=== PATIENT | male | born 1960 | race Caucasian/White ===

== ENCOUNTER 2023-05-13 12:15 | Outpatient (OUT) | payer MEDICARE, SELFPAY ==
[2023-05-13 12:48] LABS: Basophils Absolute Auto 0.1 10^3/uL (0.0-0.1); Basophils Percent Auto 0.7 % (0.2-2.0); Eosinophils Absolute Auto 0.4 10^3/uL (0.0-0.7); Eosinophils Percent Auto 6.1 % (0.9-7.0); Hematocrit 42.4 % (42.0-54.0); Hemoglobin 13.9 g/dL (14.0-18.0); Immature Granulocytes Abs Auto 0.02 10^3/uL (0.00-0.03); Immature Granulocytes Pct Auto 0.3 % (0.0-0.5); Lymphocytes Absolute Auto 2.1 10^3/uL (1.2-3.8); Lymphocytes Percent Auto 30.5 % (20.5-60.0); Mean Corpuscular HGB Conc 32.8 g/dL (29.9-35.2); Mean Corpuscular Hemoglobin 30.3 pg (25.9-34.0); Mean Corpuscular Volume 92.4 fL (80.0-94.0); Mean Platelet Volume 9.9 fL (9.5-13.5); Monocytes Absolute Auto 0.5 10^3/uL (0.3-0.8); Monocytes Percent Auto 6.9 % (1.7-12.0); Neutrophils Absolute Auto 3.8 10^3/uL (1.4-6.5); Neutrophils Percent Auto 55.5 % (43.0-75.0); Platelet Count 312 10^3/uL (150-450); Red Blood Count 4.59 10^6/uL (4.70-6.10); Red Cell Distribution Width 13.3 % (11.0-15.0); White Blood Count 6.8 10^3/uL (4.0-11.0)
[2023-05-13 12:51] LABS: Estimated Average Glucose 174 mg/dL; Glycohemoglobin A1C 7.7 % (4.5-6.2)
[2023-05-13 14:00] LABS: Alanine Aminotransferase 29 U/L (16-63); Albumin Globulin Ratio 0.9; Albumin Level 3.6 g/dL (3.4-5.0); Alkaline Phosphatase 71 U/L (46-116); Anion Gap 10.3; Aspartate Amino Transferase 21 U/L (15-37); BUN Creatinine Ratio 14.4; Bilirubin Total 0.7 mg/dL (0.2-1.0); Carbon Dioxide 29.3 mmol/L (21.0-32.0); Chloride 102 mmol/L (98-107); Estimated GFR (African America >60 (>=60); Estimated GFR (Non-African Ame >60 (>=60); Glucose 152 mg/dL (74-106); Potassium 4.6 mmol/L (3.5-5.1); Sodium 137 mmol/L (136-145); Total Protein 7.6 g/dL (6.4-8.2)
[2023-05-13 14:01] LABS: Free T4 1.08 ng/dL (0.76-1.46)
[2023-05-13 14:09] LABS: Chol HDL Ratio 2.5; Cholesterol 188 mg/dL (<=200); HDL Cholesterol 76 mg/dL (40-60); Prostate Specific Antigen Scrn 1.93 ng/mL (<=4.00); Thyroid Stimulating Hormone 5.618 uIU/mL (0.358-3.740); Triglycerides 83 mg/dL (<=150); VLDL CHOLESTEROL 16.6 mg/dL
== END 2023-05-13 12:16 ==
LOC: LAB 12:21
PROVIDERS: PCP Nurse Practitioner; Visit Provider Nurse Practitioner
DX: Z00.00 Encounter for general adult medical examination without abnormal findings (principal); E11.9 Type 2 diabetes mellitus without complications; E78.5 Hyperlipidemia, unspecified; E03.9 Hypothyroidism, unspecified; Z12.5 Encounter for screening for malignant neoplasm of prostate
CPT/HCPCS: 36415; 80053; 80061; 83036; 84439; 84443; 85025; G0103

== ENCOUNTER 2024-10-29 19:59 | Emergency (ER) | payer MEDICARE, SELFPAY ==
[2024-10-29 20:03] VITALS: BP 185/80; PULSE 122; TEMP 36.6; O2SAT 100; BMI 34.7
[2024-10-29 20:13] LABS: Glucometer 229 mg/dL (74-106)
[2024-10-29 20:16] VITALS: PULSE 119
--- NOTE | 2024-10-29 20:18 | XR_ITS ---
The [address] [address] Patient Name: ARNOLDO ARIAS MRN: [id number] date: 1960 Sex: M Assigned Patient Location: ER Current Patient Location: ER Accession/Order Number: [id number] Exam Date: 10/29/2024 20:24 Report Date: 10/29/2024 21:43 At the request of: DAIANA MARKER Procedure: XR chest 1V EXAM: XR chest 1V HISTORY: CP COMPARISON: Chest x-ray 04/04/2020. TECHNIQUE: AP upright chest x-ray. FINDINGS: Lung markings prominent, accentuated by poor inspiration but no infiltrate or edema seen. Heart size and mediastinal contour normal for technique. No pleural effusion or pneumothorax. XR/XR chest 1V IMPRESSION: Stable chest x-ray, no acute finding. Electronically authenticated by: GILES PASCAL Date: 10/29/2024 21:43
--- NOTE | 2024-10-29 20:20 | ED_ITS ---
HPI - Nausea/Vomiting/Diarrhea General Chief complaint: Nausea/Vomiting/Diarrhea Stated complaint: VOMITTING, DIARRHEA Time Seen by Provider: 10/29/24 20:04 Source: patient Mode of arrival: Wheelchair Limitations: no limitations History of Present Illness HPI Narrative: This 63-year-old male with a history of diabetes presents for evaluation of midsternal chest pain and pain behind his right shoulder blade associated with nausea, vomiting, dry heaves and diarrhea. The patient admits to drinking excessively last night-his explains that he went and had his blood work done and was told that his iron was low so he became upset and went to the [facility]. He had 2 buckets of beer; the first bucket was 6, 22 ounce beers. He went home and was intoxicated and his tried to get him to eat something but he ref used at that time but had a piece of pecan pie. Today he became ill and he was unable to eat throughout the day today and has had 2 episodes of vomiting, ongoing nausea and dry heaves. He has also had 2 episodes of diarrhea. He has some left lower quadrant abdominal pain. He has had DKA in the past after episodes of drinking such as this. He took his sugar at home and it was in the 240s. He is not a smoker denies a history of heart disease. His states that he has been sweating profusely all day which is why she brought him to the emergency department. He had taken an oral Zofran prior to arrival without clinical improvement. Since he was unable to eat he did not take his diabetic medications today. Related Data Home Medications ?Medication ?Instructions ?Recorded ?Confirmed atorvastatin 20 mg tablet mg 10/29/24 cyclobenzaprine 10 mg tablet mg 10/29/24 dulaglutide 1.5 mg/0.5 mL mg subcut 10/29/24 subcutaneous pen injector (Trulicity) glyburide 5 mg tablet mg 10/29/24 insulin NPH isoph U-100 human 100 unit subcut 10/29/24 unit/mL subcutaneous suspension (Humulin N NPH U-100 Insulin (isophane susp)) levothyroxine 175 mcg tablet mcg 10/29/24 methocarbamol 750 mg tablet mg 10/29/24 metoprolol tartrate 50 mg tablet mg 10/29/24 omeprazole 40 mg capsule,delayed mg 10/29/24 release Allergies Allergy/AdvReac Type Severity Reaction Status Date / Time Penicillins Allergy Unknown Verified 10/29/24 20:07 Review of Systems ROS Status of ROS 10 or more systems reviewed and unremark able except as noted in history and below PFSH PFSH Social History Little interest or pleasure in doing things: not at all Feeling down, depressed, or hopeless: not at all Exam Narrative Exam Narrative: Vital signs and Nursing Notes reviewed: Patient is afebrile, he is tachycardic with a pulse of 122 and blood pressure is elevated 185/80, he is not hypoxic with pulse ox of 100% on room air General: Awake, alert, oriented, nontoxic, ill-appearing pale adult male, no respiratory distress HEENT: Normocephalic atraumatic, mucous membranes are dry, no scleral icterus Chest: Lungs are clear to auscultation with good air entry, there is no wheezing rhonchi or rales appreciated no accessory muscle use, patient is speaking in complete sentences-no chest wall tenderness to palpation CVS: Regular rate and rhythm S1-S2, tachycardic with pulse in the 120s no murmurs rubs or gallops, pulses are brisk and equal bilaterally ABD: Soft, epigastric and left lower quadrant abdominal tenderness to deep pa lpation bowel sounds are normal Extremities: Moving all extremities, no lower extremity tenderness or swelling noted, negative Homans' sign, pulses are brisk and equal bilaterally Skin: Pale, diaphoretic Neuro: No focal deficits Constitutional Vital Signs, click to edit/add: Last Vital Signs Temp 97.9 F 10/29/24 20:03 Pulse 101 H 10/29/24 23:16 Resp 20 10/29/24 23:16 BP 141/84 10/29/24 23:16 Pulse Ox 99 10/29/24 23:16 O2 Del Method Room Air 10/29/24 23:16 Course Vital Signs Vital signs: Vital Signs Temperature 97.9 F 10/29/24 20:03 Pulse Rate 122 H 10/29/24 20:03 Respiratory Rate 20 10/29/24 20:03 Blood Pressure 185/80 H 10/29/24 20:03 Pulse Oximetry 100 10/29/24 20:03 Oxygen Delivery Method Room Air 10/29/24 20:03 Temperature 97.9 F 10/29/24 20:03 Pulse Rate 101 H 10/29/24 23:16 Respiratory Rate 20 10/29/24 23:16 Blood Pressure 141/84 10/29/24 23:16 Pulse Oximetry 99 10/29/24 23:16 Oxygen Delivery Method Room Air 10/29/24 23:16 MDM - Nausea/Vomiting/Diarrhea MDM Narrative Medical decision making narrative: This 63-year-old male with a history of diabetes is brought to the emergency department by his for evaluation of nausea, vomiting, dry heaves and some diarrhea after drinking heavily yesterday. The patient has been sweating profusely all day. His sugar was checked at home and it was in the 240s. He has had DKA in the past after similar episodes of heavy drinking. He complains of midsternal chest pain and pain in his right shoulder blade area as well as left lower quadrant abdominal pain. Upon arrival he is tachycardic, he is tremulous. He does not have a history of heavy drinking on a routine basis but does drink fairly regularly and occasionally drinks excessively. His EKG upon arrival was a sinus tachycardia at 111 bpm. An IV was placed and he was medicated with IV fluids, Pepcid, 324 mg baby aspirin and Zofran. His nausea and proved somewhat but he was still having left lower quadrant abdominal pain and appeared very anxious and was given 4 mg of IV morphine and 1 mg of IV Ativan. Routine labs are reviewed. He has a normal white count and hemoglobin. Troponin is normal. His glucose is elevated at 255. He was given 6 units of IV insulin. He has mildly elevated pH at 7.47 and pCO2 is mildly low at 29. On his comprehensive metabolic profile his bicarb was also mildly low at 19.7. Lactic acid is elevated at 4 likely related to alcoholic ketoacidosis. 1 view chest x-ray is negative for acute findings. He was given an additional liter of IV lactated Ringer's and monitored in the emergency department. On reevaluation he appears much more comfortable. He is tolerating ice chips. I suspect that he has some degree of alcoholic ketoacidosis as well as some mild alcohol withdrawal. The Ativan seem to help him as much as anything else did. Repeat lactic acid was ordered and is much improved at 2.5. The patient feels comfortable being discharged home at this time. He feels much better and feels comfortable being released. He was encouraged to avoid alcohol in the future especially in large quantities such as he did 2 days ago. He was encouraged to have a bland diet and slowly advance as via as tolerated. Medical Records Medical records narrative: The [address] [address] XRay Report Signed Patient: ARNOLDO ARIAS MR#: [id number] : 1960 Acct:[id number] Age/Sex: 63 / M ADM Date: 10/29/24 Loc: ER Attending Dr: Ordering Physician: Thi Freeman Date of Service: 10/29/24 Procedure(s): XR chest 1V Accession Number(s): [id number] cc: Thi Freeman; GISSEL OLIVIER~ The [address] [address] Patient Name: ARNOLDO ARIAS MRN: [id number] date: 1960 Sex: M Assigned Patient Location: ER Current Patient Location: ER Accession/Order Number: [id number] Exam Date: 10/29/2024 20:24 Report Date: 10/29/2024 21:43 At the request of: THI FREEMAN Procedure: XR chest 1V EXAM: XR chest 1V HISTORY: CP COMPARISON: Chest x-ray 04/04/2020. TECHNIQUE: AP upright chest x-ray. FINDINGS: Lung markings prominent, accentuated by poor inspiration but no infiltrate or edema seen. Heart size and mediastinal contour normal for technique. No pleural effusion or pneumothorax. XR/XR chest 1V IMPRESSION: Stable chest x-ray, no acute finding. Electronically authenticated by: GILES PASCAL Date: 10/29/2024 21:43 Lab Data Labs: Lab Results 10/29/24 10/29/24 10/29/24 Range/Units 20:11 20:16 21:34 WBC 10.9 (4.0-11.0) 10^3/uL RBC 5.02 (4.70-6.10) 10^6/uL Hgb 12.8 L (14.0-18.0) g/dL Hct 40.2 L (42.0-54.0) % MCV 80.1 (80.0-94.0) fL MCH 25.5 L (25.9-34.0) pg MCHC 31.8 (29.9-35.2) g/dL RDW 15.0 (11.0-15.0) % Plt Count 417 (150-450) 10^3/uL MPV 9.9 (9.5-13.5) fL Neut % (Auto) 78.7 H (43.0-75.0) % Lymph % (Auto) 14.5 L (20.5-60.0) % [place] % (Auto) 5.9 (1.7-12.0) % Eos % (Auto) 0.1 L (0.9-7.0) % Baso % (Auto) 0.5 (0.2-2.0) % Neut # (Auto) 8.6 H (1.4-6.5) 10^3/uL Lymph # (Auto) 1.6 (1.2-3.8) 10^3/uL [place] # (Auto) 0.6 (0.3-0.8) 10^3/uL Eos # (Auto) 0.0 (0.0-0.7) 10^3/uL Baso # (Auto) 0.1 (0.0-0.1) 10^3/uL Abs Immat Gran (auto) 0.03 (0.00-0.03) 10^3/uL Imm/Tot Granulo (auto) 0.3 (0.0-0.5) % VBG pH 7.476 H (7.330-7.430) VBG pCO2 28.6 L (40.0-52.0) mmHg Sodium 137 (136-145) mmol/L Potassium 4.4 (3.5-5.1) mmol/L Chloride 99 (98-107) mmol/L Carbon Dioxide 19.7 L (21.0-32.0) mmol/L Anion Gap 22.7 BUN 16.0 (7.0-18.0) mg/dL Creatinine 1.25 (0.70-1.30) mg/dL Est GFR ( Amer) >60 (>=60 mL/min/1.73m^2) Est GFR (Non-Af Amer) 58 L (>=60 mL/min/1.73m^2) BUN/Creatinine Ratio 12.8 Glucose 255 H (74-106) mg/dL Lactate 4.0 H* (0.4-2.0) mmol/L Calcium 9.6 (8.5-10.1) mg/dL Total Bilirubin 0.8 (0.2-1.0) mg/dL AST 23 (15-37) U/L ALT 24 (16-63) U/L Alkaline Phosphatase 74 (46-116) U/L Troponin I High Sens 12.4 (4.0-76.1) pg/mL Total Protein 7.8 (6.4-8.2) g/dL Albumin 4.0 (3.4-5.0) g/dL Globulin 3.8 g/dL Albumin/Globulin Ratio 1.1 Lipase 17.0 (16.0-77.0) U/L Acetone, Qual Negative (NEGATIVE) POC Glucose 229 H 217 H (74-106) mg/dL //24 Range/Units 22:30 WBC (4.0-11.0) 10^3/uL RBC (4.70-6.10) 10^6/uL Hgb (14.0-18.0) g/dL Hct (42.0-54.0) % MCV (80.0-94.0) fL MCH (25.9-34.0) pg MCHC (29.9-35.2) g/dL RDW (11.0-15.0) % Plt Count (150-450) 10^3/uL MPV (9.5-13.5) fL Neut % (Auto) (43.0-75.0) % Lymph % (Auto) (20.5-60.0) % [place] % (Auto) (1.7-12.0) % Eos % (Auto) (0.9-7.0) % Baso % (Auto) (0.2-2.0) % Neut # (Auto) (1.4-6.5) 10^3/uL Lymph # (Auto) (1.2-3.8) 10^3/uL [place] # (Auto) (0.3-0.8) 10^3/uL Eos # (Auto) (0.0-0.7) 10^3/uL Baso # (Auto) (0.0-0.1) 10^3/uL Abs Immat Gran (auto) (0.00-0.03) 10^3/uL Imm/Tot Granulo (auto) (0.0-0.5) % VBG pH (7.330-7.430) VBG pCO2 (40.0-52.0) mmHg Sodium (136-145) mmol/L Potassium (3.5-5.1) mmol/L Chloride (98-107) mmol/L Carbon Dioxide (21.0-32.0) mmol/L Anion Gap BUN (7.0-18.0) mg/dL Creatinine (0.70-1.30) mg/dL Est GFR ( Amer) (>=60 mL/min/1.73m^2) Est GFR (Non-Af Amer) (>=60 mL/min/1.73m^2) BUN/Creatinine Ratio Glucose (74-106) mg/dL Lactate 2.5 H* (0.4-2.0) mmol/L Calcium (8.5-10.1) mg/dL Total Bilirubin (0.2-1.0) mg/dL AST (15-37) U/L ALT (16-63) U/L Alkaline Phosphatase (46-116) U/L Troponin I High Sens (4.0-76.1) pg/mL Total Protein (6.4-8.2) g/dL Albumin (3.4-5.0) g/dL Globulin g/dL Albumin/Globulin Ratio Lipase (16.0-77.0) U/L Acetone, Qual (NEGATIVE) POC Glucose (74-106) mg/dL ECG Data Attestation: I personally reviewed and interpreted this ECG as follows: (Sinus tachycardia at 111 bpm, normal axis, normal intervals, no acute ST segment elevation or T wave inversion) Discharge Plan Discharge Chief Complaint: Nausea/Vomiting/Diarrhea Clinical Impression: Metabolic acidosis, 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, Hyperglycemia Patient Disposition: Home, Self-Care Time of Disposition Decision: 23:04 Condition: Good Prescriptions / Home Meds: No Action cyclobenzaprine 10 mg tablet levothyroxine 175 mcg tablet atorvastatin 20 mg tablet glyburide 5 mg tablet omeprazole 40 mg capsule,delayed release(DR/EC) methocarbamol 750 mg tablet Humulin N NPH U-100 Insulin 100 unit/mL suspension SUBCUT metoprolol tartrate 50 mg tablet Trulicity 1.5 mg/0.5 mL pen injector SUBCUT Print Language: Mauritanian Instructions: Gastritis (ED), Diabetic Hyperglycemia (ED) Referrals: GISSEL OLIVIER [Primary Care Provider] - 1 week Discharge Date/Time: 10/29/24 23:17
[2024-10-29 20:25] LABS: PCO2 VBG 28.6 mmHg (40.0-52.0); pH VBG 7.476 (7.330-7.430)
[2024-10-29 20:27] LABS: Basophils Absolute Auto 0.1 10^3/uL (0.0-0.1); Basophils Percent Auto 0.5 % (0.2-2.0); Eosinophils Percent Auto 0.1 % (0.9-7.0); Hematocrit 40.2 % (42.0-54.0); Hemoglobin 12.8 g/dL (14.0-18.0); Immature Granulocytes Abs Auto 0.03 10^3/uL (0.00-0.03); Immature Granulocytes Pct Auto 0.3 % (0.0-0.5); Lymphocytes Absolute Auto 1.6 10^3/uL (1.2-3.8); Lymphocytes Percent Auto 14.5 % (20.5-60.0); Mean Corpuscular HGB Conc 31.8 g/dL (29.9-35.2); Mean Corpuscular Hemoglobin 25.5 pg (25.9-34.0); Mean Corpuscular Volume 80.1 fL (80.0-94.0); Mean Platelet Volume 9.9 fL (9.5-13.5); Monocytes Absolute Auto 0.6 10^3/uL (0.3-0.8); Monocytes Percent Auto 5.9 % (1.7-12.0); Neutrophils Absolute Auto 8.6 10^3/uL (1.4-6.5); Neutrophils Percent Auto 78.7 % (43.0-75.0); Platelet Count 417 10^3/uL (150-450); Red Blood Count 5.02 10^6/uL (4.70-6.10); White Blood Count 10.9 10^3/uL (4.0-11.0)
[2024-10-29] MEDS: ONDANSETRON PF 4 MG/2 ML VIAL IV (20:29)
[2024-10-29] MEDS: FAMOTIDINE/PF 20 MG/2 ML VIAL IV (20:29)
[2024-10-29] MEDS: 0.9 % SODIUM CHLORIDE 1,000 ML 1000 ML IV (20:29)
[2024-10-29 20:37] LABS: Acetone NEGATIVE (NEGATIVE)
[2024-10-29 20:42] LABS: Alanine Aminotransferase 24 U/L (16-63); Albumin Globulin Ratio 1.1; Alkaline Phosphatase 74 U/L (46-116); Anion Gap 22.7; Aspartate Amino Transferase 23 U/L (15-37); BUN Creatinine Ratio 12.8; Bilirubin Total 0.8 mg/dL (0.2-1.0); Calcium 9.6 mg/dL (8.5-10.1); Carbon Dioxide 19.7 mmol/L (21.0-32.0); Chloride 99 mmol/L (98-107); Estimated GFR (African America >60 (>=60 mL/min/1.73m^2); Estimated GFR (Non-African Ame 58 (>=60 mL/min/1.73m^2); Globulin 3.8 g/dL; Glucose 255 mg/dL (74-106); Potassium 4.4 mmol/L (3.5-5.1); Sodium 137 mmol/L (136-145); Total Protein 7.8 g/dL (6.4-8.2)
[2024-10-29 20:44] LABS: Troponin I High Sensitivity 12.4 pg/mL (4.0-76.1)
[2024-10-29] MEDS: ASPIRIN 81 MG TAB.CHEW 324 MG PO (20:52)
[2024-10-29] MEDS: MORPHINE SULFATE 4 MG/ML VIAL IV (21:02)
[2024-10-29] MEDS: INSULIN REGULAR, HUMAN (100 UNIT/ML) 10 ML MDV 6 UNIT IV (21:03)
[2024-10-29] MEDS: LORAZEPAM 2 MG/ML VIAL 1 MG IV (21:15)
[2024-10-29 21:38] LABS: Glucometer 217 mg/dL (74-106)
--- NOTE | 2024-10-29 21:38 | ECG_ITS ---
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
[2024-10-29] MEDS: LACTATED RINGER'S SOLUTION 1,000 ML 1000 ML IV (21:40)
[2024-10-29 22:55] LABS: Lactate/Lactic Acid 2.5 mmol/L (0.4-2.0)
[2024-10-29 23:16] VITALS: BP 141/84; PULSE 101; O2SAT 99
== END 2024-10-29 23:17 | disposition home or self-care (01) ==
PROVIDERS: Emergency Provider Emergency Medicine; PCP Nurse Practitioner
DX: K29.20 Alcoholic gastritis without bleeding (principal); E11.65 Type 2 diabetes mellitus with hyperglycemia; E87.20 Acidosis, unspecified; Z79.84 Long term (current) use of oral hypoglycemic drugs; Z79.85 Long-term (current) use of injectable non-insulin antidiabetic drugs; Z79.4 Long term (current) use of insulin; R10.32 Left lower quadrant pain
CPT/HCPCS: 36415; 71045; 80053; 82009; 82800; 83605; 83690; 84484; 85025; 93005; 96361; 96374; 96375; 99285; J1817; J2060; J2270; J2405

== ENCOUNTER 2025-03-15 10:52 | Emergency (ER) | payer MEDICARE, SELFPAY ==
[2025-03-15 10:58] VITALS: BP 143/90; PULSE 115; TEMP 36.6; O2SAT 98; BMI 32.5
--- OUTSIDE RECORDS SUMMARY | 2025-03-15 11:03 | XMS_ITS | CCD ---
Author Organization [facility] Inform ion [facility] Care Team Providers Care Cp Bleacher Operator Name Role Phone ALFIE, DR DARREN Iraheta Admitting Unavailable PEARSON, DR SHANIA Adams Primary Care Unavailable JUDGE, DR DARREN Iraheta Attending Unavailable JUGDE, DR DARREN Iraheta Consulting Unavailable AL, FABIOLA Consulting Unavailable WILLIAM, ARNOLDO Consulting Unavailable MICHEL, DR SHANIA Adams Primary Care Unavailable REQUEST, DR ESCOBAR LISTED Attending Unavaila ble REQUEST, DR ESCOBAR LISTED Consulting Unavaila ble REQUEST, DR ESCOBAR LISTED Admitting Unavaila ble PEARSON, DR SHANIA Adams Primary Care Unavailable PEARSON, DR SHANIA Adams Admitting Unavailable PEARSON, DR SHANIA Adams Attending Unavailable PEARSON, DR SHANIA Adams Consulting Unavailable Pa Steph Unavailable Charline, Ghislaine Christy Primary Care Physician Ara Guidry V Unavailable Unavailable Charline, Ghislaine Christy Admitting Unavailable Charline, Ghislaine Christy Attending Unavailable Charline, Ghislaine L Admitting Unavailable Charline, Ghislaine L Attending Unavailable Charline, Ghislaine L Admitting Unavailable Charline, Ghislaine Christy Attending Unavailable SarminiBrit Attending Unavaila ble Charline, Ghislaine Christy Attending Unavailable Charline, Ghislaine L Attending Unavailable Charline, Ghislaine L Attending Unavailable Charline, Ghislaine L Attending Unavailable Charline, Ghislaine L Admitting Unavailable Charline, Ghislaine L Attending Unavailable Charline, Ghislaine L Referring Unavailable Charline, DIE CASTER Ghislaine L Admitting Unavailable Charline, DIE CASTER Ghislaine L Attending Unavailable Charline, DIE CASTER Ghislaine L Attending Unavailable Charline, DIE CASTER Ghislaine L Attending Unavailable Charline, DIE CASTER Ghislaine L Attending Unavailable Charline, DIE CASTER Ghislaine L Admitting Unavailable Charline, DIE CASTER Ghislaine L Attending Unavailable Charline Ghislaine RESTREPO Unavailable POCOS, ARNOLDO Schulz Referring Unavailable POCOS, ARNOLDO Schulz Referring Unavailable POCOS, ARNOLDO Schulz Referring Unavailable POCOS, ARNOLDO Schulz Attending Unavailable CHARLINE, GHISLAINE Referring Unavailable INES ASTUDILLO Attending Unavailable POCOS, ARNOLDO Schulz Referring Unavailable DAIANA VALENTINO Attending Unavailable POCOS, ARNOLDO Schulz Referring Unavailable ASTUDILLO, INES Attending Unavailable POCOS, ARNOLDO Schulz Referring Unavailable ASTUDILLO, INES Attending Unavailable POCOS, ARNOLDO Schulz Referring Unavailable ASTUDILLO, INES Attending Unavailable POCOS, ARNOLDO Schulz Referring Unavailable ASTUDILLO, INES Attending Unavailable POCOS, ARNOLDO Schulz Referring Unavailable Charline, Ghislaine L Attending Unavailable Charline, Ghislaine L Admitting Unavailable Charline, Ghislaine L Attending Unavailable Charline, Ghislaine L Admitting Unavailable Charline, Ghislaine L Attending Unavailable Teagan Puri Attending Unavailable Charline, Ghislaine L Attending Unavailable Charline, Ghislaine L Admitting Unavailable Unavailable Unavailable Unavailable Allergies Allergy Classification Reported Allergen(s) Allergy Type Date of Onset Reaction(s) Facility (1 source) Penicillins Drug allergy (disorder) 01-30-20 16 [facility] Rep[facility] (1 source) Penicillian V Potassium Drug allergy Unknown [facility] Other (20 sources) metFORMIN; Translations: [metformin] Drug Allergy 01-13-20 25 Unknown (qualifier value) [facility] (11 sources) Penicillin; Translations: [penicillin] Drug Allergy Unknown (qualifier value) [facility] (14 sources) Penicillins Drug Intolerance 11-26-20 19 [facility] Medications Current Medications Medication Drug Class(es) Dates Sig (Normalized) Sig (Original) Albuterol (Eqv-ProAir HFA) 90 mcg/inh inhalation aerosol (1 source) Start: 05-13-2023 take 2 puff(s) by inhalation every six hours Albuterol (Eqv-ProAir HFA) 90 mcg/inh inhalation aerosol 2 puff(s), Inhalation, q6hr, 6.7 gm, Refill(s) 0, [facility], 190, cm, 05/13/23 11:11:00 EDT, Height/Length Dosing, 126.5, kg, 05/13/23 11:11:00 EDT, Weight Dosing Start Date: 05/13/23 Status: Ordered atorvastatin 20 mg oral tablet (20 sources) HMG-CoA Reductase Inhibitor Start: 05-13-2023 End: 06-12-2025 atorvastatin (Lipitor) 20 MG tablet Take 20 mg by mouth 06/17/2024 06/12/2025 Active take 1 tablet by mouth at bedtim e Atorvastatin Calcium 10 mg 1 tablet Orally bedtime for 90 Active celecoxib 200 mg oral capsule (6 sources) Nonsteroidal Anti-inflammatory Drug Start: 12-10-2023 End: 12-04-2024 take 1 capsule by mouth twice daily celecoxib 200 mg Cap 200 mg = 1 cap(s), Oral, BID, # 180 cap(s), Refills(s) 3, Pharmacy: [facility], 190, cm, 10/16/24 10:29:00 EST, Height/Length Dosing, 123.4, kg, 10/16/24 10:29:00 EST, Weight Dosing Start Date: 10/30/24 Status: Ordered Start: 05-13-2023 take 1 capsule by [facility] twice daily celecoxib 200 mg Cap 200 mg = 1 cap(s), Oral, BID, # 180 cap(s), Refills(s) 3, Pharmacy: [facility], 190, cm, 05/13/23 11:11:00 EDT, Height/Length Dosing, 126.5, kg, 05/13/23 11:11:00 EDT, Weight Dosing Start Date: 05/13/23 Status: Ordered cyclobenzaprine hydrochloride 10 mg oral tablet (20 sources) Muscle Relaxant Start: 11-03-2024 cyclobenzaprin e (Flexeril) 10 MG tablet Take 10 mg by mouth 11/03/2024 Active Start: 10-16-2024 take 1 capsule by [facility] at bedtime for muscle spasms cyclobenzaprine 15 mg oral capsule, extended release 15 mg, 1 cap(s), Oral, Bedtime for spasm, 100 cap(s), Refill(s) 1, [facility], 190, cm, 10/16/24 10:29:00 EST, Height/Length Dosing, 123.4, kg, 10/16/24 10:29:00 EST, Weight Dosing Start Date: 10/16/24 Status: Ordered Start: 12-10-2023 cyclobenzaprin e 10 mg Tab See Instructions, PRN for spasm, 1 tab at bedtime, # 100 tab(s), Refills(s) 3, Pharmacy: [facility], 190, cm, 12/10/23 11:00:00 EST, Height/Length Dosing, 125, kg, 12/10/23 11:00:00 EST, Weight Dosing Start Date: 12/10/23 Status: Ordered Start: 05-13-2023 cyclobenzaprin e 10 mg Tab See Instructions, PRN for spasm, 1 tab at bedtime, # 90 tab(s), Refills(s) 3, Pharmacy: [facility], 190, cm, 05/13/23 11:11:00 EDT, Height/Length Dosing, 126.5, kg, 05/13/23 11:11:00 EDT, Weight Dosing Start Date: 05/13/23 Status: Ordered dapagliflozin 10 mg oral tablet (2 sources) Sodium-Glucose Cotransporter 2 Inhibitor take 1 tablet by mouth every twenty-four hours Farxiga 10 mg 1 tablet Orally Once a day Active diclofenac sodium 75 mg delayed release oral tablet (14 sources) Nonsteroidal Anti-inflammatory Drug Start: 2024 End: 2024 take 1 tablet by mouth in the morning diclofenac (Voltaren) 75 MG EC tablet Indications: Lumbar spondylosis , Discogenic syndrome, lumbar , Left hip impingement syndrome Take 1 tablet (75 mg) by mouth in the morning and 1 tablet (75 mg) before bedtime. Do not crush, chew, or split. . 60 tablet 01/13/2025 02/12/2025 Active dicyclomine hydrochloride 10 mg oral capsule (1 source) Anticholinergic Start: 2023 End: 2023 take 1 capsule by mouth four times daily Bentyl 10 mg Cap 10 mg = 1 cap(s), Oral, QID, X 10 day(s), # 40 cap(s), Refills(s) 0, Pharmacy: [facility], 190, cm, 12/10/23 11:00:00 EST, Height/Length Dosing, 125, kg, 12/10/23 11:00:00 EST, Weight Dosing Start Date: 12/10/23 Stop Date: 12/20/23 Status: Ordered 0.5 ml dulaglutide 3 mg/ml auto-injector (6 sources) GLP-1 Receptor Agonist Start: 2023 Trulicity Pen 1.5 mg/0.5 mL subcutaneous solution See Instructions, INJECT THE CONTENTS OF ONE PEN SUBCUTANEOUSLY WEEKLY DIRECTED, # 6 mL, Refills(s) 3, Pharmacy: [facility], 190, cm, 10/16/24 10:29:00 EST, Height/Length Dosing, 123.4, kg, 10/16/24 10:29:00 EST, Weight Dosing Start Date: 10/19/24 Status: Ordered Start: 12-10-2023 inject 1.5 mg by sub cutaneous injection every week Trulicity Pen 1.5 mg/0.5 mL subcutaneous solution 1.5 mg, SubCutaneous, qWeek, # 12 EA, Refills(s) 3, Pharmacy: [facility], 190, cm, 12/10/23 11:00:00 EST, Height/Length Dosing, 125, kg, 12/10/23 11:00:00 EST, Weight Dosing Start Date: 12/10/23 Status: Ordered Start: 05-13-2023 inject 0.75 mg by allen bcutaneous injection every week dulaglutide 0.75 mg/0.5 mL subcutaneous solution 0.75 mg, SubCutaneous, qWeek, # 12 EA, Refills(s) 3, Pharmacy: [facility], 190, cm, 05/13/23 11:11:00 EDT, Height/Length Dosing, 126.5, kg, 05/13/23 11:11:00 EDT, Weight Dosing Start Date: 05/13/23 Status: Ordered esomeprazole 40 mg delayed release oral capsule (4 sources) Proton Pump Inhibitor Start: 10-08-2023 End: 10-02-2024 take 1 capsule by mouth once daily esomeprazole 40 mg Cap-EC 40 mg, Oral, Daily, X 90 day(s), # 100 cap(s), Refills(s) 3 Start Date: 10/08/23 Stop Date: 10/02/24 Status: Ordered Start: 05-13-2023 take 1 capsule by [facility] once daily esomeprazole 40 mg Cap-EC 40 mg, Oral, Daily, # 90 cap(s), Refills(s) 3, Pharmacy: [facility], 190, cm, 05/13/23 11:11:00 EDT, Height/Length Dosing, 126.5, kg, 05/13/23 11:11:00 EDT, Weight Dosing Start Date: 05/13/23 Status: Ordered fluticasone propionate 0.05 mg/actuat metered dose nasal spray (1 source) Corticosteroid Start: 02-21-2023 take 2 spray(s) nasal route once daily fluticasone Nasal 0.05 mg/inh [place] 2 spray(s), Nasal, Daily, 16 gram, Refill(s) 0, each nostril, [facility], 190, cm, 02/21/23 11:59:00 EDT, Height/Length Dosing, 124.1, kg, 02/21/23 11:59:00 EDT, Weight Dosing Start Date: 02/21/23 Status: Ordered gabapentin 300 mg oral capsule (3 sources) Anti-epileptic Agent Start: 04-03-2024 take 1 capsule by mouth three times daily gabapentin 300 mg Cap 300 mg = 1 cap(s), Oral, TID, # 90 cap(s), Refills(s) 0, Pharmacy: [facility], 190, cm, 04/03/24 11:16:00 EDT, Height/Length Dosing, 124.4, kg, 04/03/24 11:16:00 EDT, Weight Dosing Start Date: 04/03/24 Status: Ordered glyBURIDE 5 mg oral tablet (20 sources) Sulfonylurea Start: 05-13-2023 End: 03-29-2025 take 1 tablet by mouth twice daily glyBURIDE 5 mg Tab 5 mg = 1 tab(s), Oral, BID, X 90 day(s), # 180 tab(s), Refills(s) 3, Pharmacy: [id number], 190, cm, 04/03/24 11:16:00 EDT, Height/Length Dosing, 124.4, kg, 04/03/24 11:16:00 EDT, Weight Dosing Start Date: 04/03/24 Stop Date: 03/29/25 Status: Ordered take 1 tablet by mouth once linda y glyBURIDE 5 MG TAKE 1 TABLET BY MOUTH EVERY DAY for 90 Active insulin isophane, human 100 unt/ml injectable suspension (20 sources) Start: 10-16-2024 NovoLIN N 100 UNIT/ML injection Inject under the skin 10/16/2024 Active Start: 10-16-2024 inject 28 [IU] by allen bcutaneous injection twice daily, then inject 28 [IU] by subcutaneous injection twice daily HumuLIN N 100 units/mL Injection-Insulin 28 unit(s), SubCutaneous, BID, provider increase dose to 28 units BID, # 40 mL, Refills(s) 3, Pharmacy: [facility], 190, cm, 10/16/24 10:29:00 EST, Height/Length Dosing, 123.4, kg, 10/16/24 10:29:00 EST, Weight Dosing Start Date: 10/16/24 Status: Ordered Start: 04-06-2024 HumuLIN N Kwik Pen 100 units/mL subcutaneous suspension 28 unit(s), SubCutaneous, BID, DX E11.69, # 10 mL, Refills(s) 11, Pharmacy: [facility], 190, cm, 04/03/24 11:16:00 EDT, Height/Length Dosing, 124.4, kg, 04/03/24 11:16:00 EDT, Weight Dosing Start Date: 04/06/24 Status: Ordered Start: 11-12-2023 HumuLIN N 100 units/mL Injection-Insulin 28 unit(s), SubCutaneous, BID, provider increase dose to 28 units BID on 05/22/23 HGBA1C 7.7, # 40 mL, Refills(s) 3, Pharmacy: [facility], 190, cm, 05/13/23 11:11:00 EDT, Height/Length Dosing, 126.5, kg, 05/13/23 11:11:00 EDT, Weight Dosing Start Date: 11/12/23 Status: Ordered Start: 05-13-2023 HumuLIN N 100 units/mL Injection-Insulin 28 unit(s), SubCutaneous, BID, provider increase dose to 28 units BID on 05/22/23 HGBA1C 7.7, # 10 mL, Refills(s) 5, Pharmacy: [facility], 190, cm, 05/13/23 11:11:00 EDT, Height/Length Dosing, 126.5, kg, 05/13/23 11:11:00 EDT, Weight... Start Date: 05/13/23 Status: Ordered levothyroxine sodium 0.175 mg oral tablet (20 sources) l-Thyroxine Start: 10-30-2024 levothyroxine (Synthroid, Levoxyl) 175 MCG tablet Take 175 mcg by mouth 10/30/2024 Active Start: 12-10-2023 End: 12-04-2024 take 1 tablet by mouth once daily levothyroxine 175 mcg (0.175 mg) Tab 175 mcg = 1 tab(s), Oral, Daily, # 90 tab(s), Refills(s) 3, Pharmacy: [facility], 190, cm, 10/16/24 10:29:00 EST, Height/Length Dosing, 123.4, kg, 10/16/24 10:29:00 EST, Weight Dosing Start Date: 10/30/24 Status: Ordered Start: 08-02-2023 take 1 tablet by noni th once daily levothyroxine 175 mcg (0.175 mg) Tab 175 mcg = 1 tab(s), Oral, Daily, # 90 tab(s), Refills(s) 1, Pharmacy: [facility], 190, cm, 05/13/23 11:11:00 EDT, Height/Length Dosing, 126.5, kg, 05/13/23 11:11:00 EDT, Weight Dosing Start Date: 08/02/23 Status: Ordered take 1 tablet by noni th once daily in the morning Synthroid 125 MCG 1 tablet on an empty stomach in the morning Orally Once a day Active 3 ml liraglutide 6 mg/ml pen injector (1 source) GLP-1 Receptor Agonist inject 1.8 mg by subcutaneous injection once daily Victoza 18 MG/3ML 1.8 mg Subcutaneous Once a day Active metFORMIN hydrochloride 1000 mg oral tablet (2 sources) Biguanide take 1 tablet by mouth every twelve hours metFORMIN HCl 1000 MG 1 tablet Orally Twice a day for 90 Active metoprolol tartrate 50 mg oral tablet (20 sources) beta-Adrenergic Gillian Start: End: metoprolol tartrate (Lopressor) 50 MG tablet 11/19/2024 Active naproxen 500 mg delayed release oral tablet (4 sources) Nonsteroidal Anti-inflammatory Drug Start: End: 024 take 1 tablet by mouth twice daily naproxen 500 mg oral enteric coated tablet 500 mg = 1 tab(s), Oral, BID, X 90 day(s), # 200 tab(s), Refills(s) 3 Start Date: 10/08/23 Stop Date: 10/02/24 Status: Ordered Start: 05-15-2023 take 1 tablet by [facility] twice daily naproxen 500 mg oral enteric coated tablet 500 mg = 1 tab(s), Oral, BID, # 60 tab(s), Refills(s) 0, Pharmacy: [facility], 190, cm, 05/13/23 11:11:00 EDT, Height/Length Dosing, 126.5, kg, 05/13/23 11:11:00 EDT, Weight Dosing Start Date: 05/15/23 Status: Ordered omeprazole 40 mg delayed release oral capsule (5 sources) Proton Pump Inhibitor Start: 10-16-2024 End: 10-11-2025 take 1 capsule by mouth once daily omeprazole 40 mg Cap-DR 40 mg = 1 cap(s), Oral, Daily, X 90 day(s), # 90 cap(s), Refills(s) 3, Pharmacy: [facility], 190, cm, 10/16/24 10:29:00 EST, Height/Length Dosing, 123.4, kg, 10/16/24 10:29:00 EST, Weight Dosing Start Date: 10/16/24 Stop Date: 10/11/25 Status: Ordered Start: 01-15-2024 take 1 capsule by [facility] once daily omeprazole 40 mg Cap-DR 40 mg = 1 cap(s), Oral, Daily, # 90 cap(s), Refills(s) 3, Pharmacy: [facility], 190, cm, 12/10/23 11:00:00 EST, Height/Length Dosing, 125, kg, 12/10/23 11:00:00 EST, Weight Dosing Start Date: 01/15/24 Status: Ordered Start: 12-10-2023 take 1 capsule by [facility] once daily omeprazole 40 mg Cap-DR 40 mg = 1 cap(s), Oral, Daily, # 90 cap(s), Refills(s) 0, Pharmacy: [facility], 190, cm, 12/10/23 11:00:00 EST, Height/Length Dosing, 125, kg, 12/10/23 11:00:00 EST, Weight Dosing Start Date: 12/10/23 Status: Ordered One touch ultra glucose monitor (5 sources) Start: 12-10-2023 One touch ultra glucose monitor One touch ultra glucose monitor, See Instructions, 1 EA, 0, Check blood sugar 4 times per day, [facility], 190, cm, 12/10/23 11:00:00 EST, Height/Length Dosing, 125, kg, 12/10/23 11:00:00 EST, Weight Dosing Start Date: 12/10/23 Status: Ordered pioglitazone 30 mg oral tablet (2 sources) Peroxisome Proliferator Receptor alpha Agonist, Peroxisome Proliferator Receptor gamma Agonist, Thiazolidinedione take 1 tablet by mouth once daily Pioglitazone HCl 30 MG TAKE 1 TABLET BY MOUTH EVERY DAY Active Trulicity 3 MG/0.5ML solution auto-injector (14 sources) Start: 01-03-2025 Trulicity 3 MG/0.5ML solution auto-injector 01/03/2025 Active Completed/Discontinued Medications Medication Drug Class(es) Dates Sig (Normalized) Sig (Original) Pen tip needles for Humulin N insulin pen (2 sources) Start: 11-20-2024 Pen tip needles for Humulin N insulin pen Pen tip needles for Humulin N insulin pen, See Instructions, 100 EA, 4, use bid with insulin dosing, [facility], 190, cm, 10/16/24 10:29:00 EST, Height/Length Dosing, 123.4, kg, 10/16/24 10:29:00 EST, Weight Dosing Start Date: 11/20/24 Status: Ordered Start: 04-06-2024 Pen tip needle s for Humulin N insulin pen Pen tip needles for Humulin N insulin pen, See Instructions, 100 EA, 4, use bid with insulin dosing, [facility], 190, cm, 04/03/24 11:16:00 EDT, Height/Length Dosing, 124.4, kg, 04/03/24 11:16:00 EDT, Weight Dosing Start Date: 04/06/24 Status: Ordered Problems Active Problems Problem Classification Problem Date Documented Da te Episodic/Chronic Abdominal pain (10 sources) Unspecified abdominal pain; Translations: [Left lower quadrant pain] Onset: 2 Episodic Administrative/social admission (1 source) Patient encounter status; Translations: [Dietary counseling and surveillance] Episodic Cardiac dysrhythmias (7 sources) Sinus tachycardia 02-20-2023 Episodic Deficiency and other anemia (1 source) Hemoglobin low 02-18-2025 Episodic Diabetes mellitus with complications (2 sources) Type 2 diabetes mellitus; Translations: [Type 2 diabetes mellitus with hyperglycemia] Chronic Diabetes mellitus without complication (9 sources) Type 2 diabetes mellitus without complications; Translations: [Type 2 diabetes mellitus] Onset: 2 02-20-2023 Chronic Disorders of lipid metabolism (12 sources) Hyperlipidemia; Translations: [Hyperlipidemia, unspecified] 05-13-2023 Chronic Esophageal disorders (14 sources) Gastroesophageal reflux disease; Translations: [Gastroesophageal reflux disease without esophagitis] Onset: 4 02-20-2023 Chronic Gastritis and duodenitis (1 source) Gastritis, unspecified, without bleeding; Translations: [GASTRITIS UNS WITHOUT BLEEDING] Onset: 2 Episodic Immunizations and screening for infectious disease (1 source) Contact with and (suspected) exposure to other viral communicable diseases Episodic Malaise and fatigue (1 source) Fatigue 02-18-2025 Episodic Osteoarthritis (10 sources) Osteoarthritis of left hip joint; Translations: [Unilateral primary osteoarthritis, left hip] 01-14-2025 Chronic Other acquired deformities (7 sources) Stenosis of intervertebral foramina 02-20-2023 Episodic Other aftercare (1 source) FPC (current) use of oral hypoglycemic drugs; Translations: [INTERMEDIATE USE ORAL HYPOGLYCEMIC DX] Onset: 2 Episodic Other connective tissue disease (7 sources) Tendinitis 02-20-2023 Episodic Other gastrointestinal disorders (1 source) Abnormal feces; Translations: [Other fecal abnormalities] Onset: 4 Episodic Other lower respiratory disease (7 sources) Dyspnea 05-13-2023 Episodic Other male genital disorders (7 sources) 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 Other non-traumatic joint disorders (13 sources) Hip pain; Translations: [Pain in left hip] 10-16-2024 Episodic Other non-traumatic joint disorders (10 sources) Enthesopathy of hip region; Translations: [Other specified joint disorders, left hip] 01-14-2025 Episodic Other nutritional; endocrine; and metabolic disorders (7 sources) Body mass index 30+ - obesity 04-03-2024 Chronic Other nutritional; endocrine; and metabolic disorders (7 sources) Obesity 04-03-2024 Chronic Other nutritional; endocrine; and metabolic disorders (1 source) Body mass index 25-29 - overweight; Translations: [Overweight] Episodic Other nutritional; endocrine; and metabolic disorders (7 sources) Weight gain 05-13-2023 Episodic Spondylosis; intervertebral disc disorders; other back problems (20 sources) Degeneration of lumbar intervertebral disc; Translations: [Lumbar spondylosis] 02-20-2023 Chronic Spondylosis; intervertebral disc disorders; other back problems (4 sources) Backache 04-03-2024 Episodic Thyroid disorders (7 sources) Hypothyroidism 02-20-2023 Chronic Unclassified (1 source) CONTACT W/AND (SUSP) EXPOS COVID-19; Translations: [CONTACT W/AND (SUSP) EXPOS COVID-19] Onset: Unclassified (14 sources) Patient encounter status 05-13-2023 Unclassified (6 sources) Stool finding 12-10-2023 Unclassified (3 sources) Non-smoker 10-16-2024 Past or Other Problems Problem Classification Problem Date Documented Da te Episodic/Chronic Other screening for suspected conditions (not mental disorders or infectious disease) (4 sources) Abnormal results of thyroid function studies; Translations: [ABNORMAL RESULTS THR FUNCTION STDY] Onset: 03-28-2022 Episodic Viral infection (1 source) COVID-19 Results Test Name Value Interpretation Reference Range Facility Reminderson 02-22-2025 Reminders Reminders - From: Ghislaine Pichardo To: [facility] - Clinical; Sent: 02/22/2025 09:34:06 EDT Show up: 02/22/2025 09:32:00 EDT Subject: Ambulatory Reminder Due Date/Time: 02/23/2025 09:31:00 EDT Lab work revealed that he definitely has iron deficiency anemia. I will send in iron supplements. Would he like referral to GI for further evaluation? To make sure he doesn't have GI bleed that is causing his hemoglobin and iron to be so low? Results: Date Result Name Ind Value Ref Range 02/18/2025 14:19 WBC 6.3 E9/L (4.0 - 11.0) 02/18/2025 14:19 RBC (L) 3.9 E12/L (4.3 - 5.9) 02/18/2025 14:19 HGB (L) 10.5 gm/dL (13.5 - 17.5) 02/18/2025 14:19 Hct (L) 31.8 % (37.7 - 49.0) 02/18/2025 14:19 MCV 80.9 fL (80.0 - 100.0) 02/18/2025 14:19 MCH (L) 26.6 pg (27.0 - 34.0) 02/18/2025 14:19 MCHC 32.9 gm/dL (31.4 - 36.0) 02/18/2025 14:19 RDW (H) 15.5 % (10.9 - 14.2) 02/18/2025 14:19 Platelet 353.0 E9/L (150.0 - 500.0) 02/18/2025 14:19 MPV 8.9 fL (6.4 - 10.8) 02/18/2025 14:19 Neutro Auto 56.8 % (36.0 - 75.0) 02/18/2025 14:19 Lymph Auto 27.1 % (14.0 - 50.0) 02/18/2025 14:19 [place] Auto 8.1 % (4.0 - 14.0) 02/18/2025 14:19 Eos Auto 7.4 % (0.0 - 8.0) 02/18/2025 14:19 Basophil Auto 0.6 % (0.0 - 2.0) 02/18/2025 14:19 Neutro Absolute 3.6 E9/L (2.0 - 7.5) 02/18/2025 14:19 Lymph Absolute 1.7 E9/L (1.0 - 4.0) 02/18/2025 14:19 [place] Absolute 0.5 E9/L (0.2 - 1.0) 02/18/2025 14:19 Eos Absolute 0.5 E9/L (0.0 - 0.5) 02/18/2025 14:19 Basophil Absolute 0.0 E9/L (0.0 - 0.2) 02/18/2025 14:19 Iron (L) 30 mcg/dL (35 - 153) 02/18/2025 14:19 Transferrin 321 mg/dL (200 - 370) 02/18/2025 14:19 TIBC (H) 449 mcg/dL (250 - 400) 02/18/2025 14:19 Ferritin Lvl (L) 8 ng/mL (24 - 336) - From: Celsa Simmons M.A. ([facility] - Clinical) To: Ghislaine Pichardo; Sent: 02/22/2025 10:15:40 EDT Show up: 02/22/2025 10:13:00 EDT Subject: RE: Ambulatory Reminder understands, and yes he would like that referral to GI Normal [facility] Ambulatory Visit Summaryon 0 02-18-2025 Ambulatory Visit Summary Ambulatory Visit Summary ARNOLDO GANT :1960 Visit Date:02/18/2025 Ambulatory Visit Instructions Your Diagnosis Fatigue Low hemoglobin BMI 33.0-33.9,adult Non-smoker Your Care Team Attending Physician - Ghislaine Pichardo Primary Care Physician - Ghislaine Pichardo This Is Your Medications List Misc Prescription (Misc DME Prescription) Misc Prescription (One touch ultra 2 with device kit) Misc Prescription (One touch ultra glucose monitor) Misc Prescription (Pen tip needles for Humulin N insulin pen) Misc Prescription (insulin syringe 0.3ml 29Gx1/2 inch) Misc Prescription (one touch ultra test strips) atorvastatin (atorvastatin 20 mg Tab) celecoxib (celecoxib 200 mg Cap) cyclobenzaprine (cyclobenzaprine 10 mg Tab) dicyclomine (dicyclomine 10 mg Cap) dulaglutide (Trulicity Pen 3 mg/0.5 mL subcutaneous solution) fluticasone nasal (fluticasone Nasal 0.05 mg/inh [place]) gabapentin (gabapentin 300 mg Cap) glyBURIDE (glyBURIDE 5 mg Tab) insulin isophane (HumuLIN N 100 units/mL Injection-Insulin) levothyroxine (levothyroxine 175 mcg (0.175 mg) Tab) metoprolol (Metoprolol tartrate 50 mg Tab) omeprazole (omeprazole 40 mg Cap-DR) Procedures Performed Cardiac catheter, Colonoscopy, History of nasal sinus surgery, T and A (tonsillectomy and adenoidectomy) postoperative education. Discharge Vitals Heart Rate (Peripheral) 80 Respiratory Rate 18 Blood Pressure 122/78 Height 190.0 cm Height 75 in Weight 120.6 kg Weight 265.877 lb BMI 33.41 What to do next Scheduled Follow-Up Appointments 2025 11:00 AM EST Where: [address] [id number]- Medications What How Much When Why Instructions Unchanged atorvastatin (atorvastatin 20 mg Tab) See instructions TAKE 1 TABLET BY MOUTH DAILY Unchanged celecoxib (celecoxib 200 mg Cap) 1 Capsules By Mouth 2 times a day Unchanged cyclobenzaprine (cyclobenzaprine 10 mg Tab) 1 Tablets By Mouth 2 times a day as needed for for spasm Unchanged dicyclomine (dicyclomine 10 mg Cap) See instructions TAKE 1 CAPSULE BY MOUTH 4 TIMES DAILY FOR 10 DAYS Unchanged dulaglutide (Trulicity Pen 3 mg/ 0.5 mL subcutaneous solution) 3 Milligram Subcutaneous Every week Unchanged fluticasone nasal (fluticasone Nasal 0.05 mg/ inh [place]) See instructions USE 2 SPRAYS IN BOTH NOSTRILS DAILY Unchanged gabapentin (gabapentin 300 mg Cap) 1 Capsules By Mouth 3 times a day Wellness examination Diabetes mellitus type I Hyperlipemia Hypothyroid Prostate cancer screening Back pain BMI 34.0-34.9,adult Obesity with serious comorbidity Unchanged glyBURIDE (glyBURIDE 5 mg Tab) 1 Tablets By Mouth 2 times a day Duration: 90 Days Unchanged insulin isophane (HumuLIN N 100 units/ mL Injection-Insulin) 28 Units Subcutaneous 2 times a day provider increase dose to 28 units BID Unchanged levothyroxine (levothyroxine 175 mcg (0.175 mg) Tab) 1 Tablets By Mouth Every day Unchanged metoprolol (Metoprolol tartrate 50 mg Tab) 1 Tablets By Mouth Every day Unchanged Misc Prescription (insulin syringe 0.3ml 29Gx1/ 2 inch) See instructions use when giving insulin Unchanged Misc Prescription (Misc DME Prescription) See instructions BD insulin syringes 0.3ml, 29GX1/ 2 needles Use bid to inject insulin E10.8 Unchanged Misc Prescription (One touch ultra 2 with device kit) See instructions Left lower quadrant pain Change in stool Acid reflux Diabetes mellitus type I Non-smoker BMI 34.0-34.9,adult check blood sugar 4 times a day Unchanged Misc Prescription (One touch ultra glucose monitor) See instructions Left lower quadrant pain Change in stool Acid reflux Diabetes mellitus type I Non-smoker BMI 34.0-34.9,adult Check blood sugar 4 times per day Unchanged Misc Prescription (one touch ultra test strips) See instructions Left lower quadrant pain Change in stool Acid reflux Diabetes mellitus type I Non-smoker BMI 34.0-34.9,adult check blood sugar 4 times per day Unchanged Misc Prescription (Pen tip needles for Humulin N insulin pen) See instructions use bid with insulin dosing Unchanged omeprazole (omeprazole 40 mg Cap-DR) 1 Capsules By Mouth Every day Left lower quadrant pain Change in stool Acid reflux Diabetes mellitus type I Non-smoker BMI 34.0-34.9,adult Duration: 90 Days Allergies metFORMIN (Unknown) penicillin (Unknown) Problems Ongoing - Any problem that you are currently receiving treatment for. Acid reflux Back pain BMI 34.0-34.9,adult Change in stool Degenerative disc disease, lumbar Diabetes mellitus type I Fatigue GERD (gastroesophageal reflux disease) Hip pain Hyperlipemia Hyperlipidemia Hypothyroid Induratio penis plastica Left lower quadrant pain Low hemoglobin Nonsmoker Obesity Obesity (BMI 30-39.9) Obesity with serious comorbidity Prostate cancer screening Shortness of breath Sinus tachycardia (more content not included)... Normal [facility] Ambulatory Visit Summary Ambulatory Visit Summary ARNOLDO GANT :1960 Visit Date:02/18/2025 Ambulatory Visit Instructions Your Diagnosis Fatigue Low hemoglobin BMI 33.0-33.9,adult Non-smoker Your Care Team Attending Physician - Ghislaine Pichardo Primary Care Physician - Ghislaine Pichardo This Is Your Medications List Misc Prescription (Misc DME Prescription) Misc Prescription (One touch ultra 2 with device kit) Misc Prescription (One touch ultra glucose monitor) Misc Prescription (Pen tip needles for Humulin N insulin pen) Misc Prescription (insulin syringe 0.3ml 29Gx1/2 inch) Misc Prescription (one touch ultra test strips) atorvastatin (atorvastatin 20 mg Tab) celecoxib (celecoxib 200 mg Cap) cyclobenzaprine (cyclobenzaprine 10 mg Tab) dicyclomine (dicyclomine 10 mg Cap) dulaglutide (Trulicity Pen 3 mg/0.5 mL subcutaneous solution) fluticasone nasal (fluticasone Nasal 0.05 mg/inh [place]) gabapentin (gabapentin 300 mg Cap) glyBURIDE (glyBURIDE 5 mg Tab) insulin isophane (HumuLIN N 100 units/mL Injection-Insulin) levothyroxine (levothyroxine 175 mcg (0.175 mg) Tab) metoprolol (Metoprolol tartrate 50 mg Tab) omeprazole (omeprazole 40 mg Cap-DR) Procedures Performed Cardiac catheter, Colonoscopy, History of nasal sinus surgery, T and A (tonsillectomy and adenoidectomy) postoperative education. Discharge Vitals Heart Rate (Peripheral) 80 Respiratory Rate 18 Blood Pressure 122/78 Height 190.0 cm Height 75 in Weight 120.6 kg Weight 265.877 lb BMI 33.41 What to do next Scheduled Follow-Up Appointments 2025 11:00 AM EST Where: [facility] [place] [id number]- Medications What How Much When Why Instructions Unchanged atorvastatin (atorvastatin 20 mg Tab) See instructions TAKE 1 TABLET BY MOUTH DAILY Unchanged celecoxib (celecoxib 200 mg Cap) 1 Capsules By Mouth 2 times a day Unchanged cyclobenzaprine (cyclobenzaprine 10 mg Tab) 1 Tablets By Mouth 2 times a day as needed for for spasm Unchanged dicyclomine (dicyclomine 10 mg Cap) See instructions TAKE 1 CAPSULE BY MOUTH 4 TIMES DAILY FOR 10 DAYS Unchanged dulaglutide (Trulicity Pen 3 mg/ 0.5 mL subcutaneous solution) 3 Milligram Subcutaneous Every week Unchanged fluticasone nasal (fluticasone Nasal 0.05 mg/ inh [place]) See instructions USE 2 SPRAYS IN BOTH NOSTRILS DAILY Unchanged gabapentin (gabapentin 300 mg Cap) 1 Capsules By Mouth 3 times a day Wellness examination Diabetes mellitus type I Hyperlipemia Hypothyroid Prostate cancer screening Back pain BMI 34.0-34.9,adult Obesity with serious comorbidity Unchanged glyBURIDE (glyBURIDE 5 mg Tab) 1 Tablets By Mouth 2 times a day Duration: 90 Days Unchanged insulin isophane (HumuLIN N 100 units/ mL Injection-Insulin) 28 Units Subcutaneous 2 times a day provider increase dose to 28 units BID Unchanged levothyroxine (levothyroxine 175 mcg (0.175 mg) Tab) 1 Tablets By Mouth Every day Unchanged metoprolol (Metoprolol tartrate 50 mg Tab) 1 Tablets By Mouth Every day Unchanged Misc Prescription (insulin syringe 0.3ml 29Gx1/ 2 inch) See instructions use when giving insulin Unchanged Misc Prescription (Misc DME Prescription) See instructions BD insulin syringes 0.3ml, 29GX1/ 2 needles Use bid to inject insulin E10.8 Unchanged Misc Prescription (One touch ultra 2 with device kit) See instructions Left lower quadrant pain Change in stool Acid reflux Diabetes mellitus type I Non-smoker BMI 34.0-34.9,adult check blood sugar 4 times a day Unchanged Misc Prescription (One touch ultra glucose monitor) See instructions Left lower quadrant pain Change in stool Acid reflux Diabetes mellitus type I Non-smoker BMI 34.0-34.9,adult Check blood sugar 4 times per day Unchanged Misc Prescription (one touch ultra test strips) See instructions Left lower quadrant pain Change in stool Acid reflux Diabetes mellitus type I Non-smoker BMI 34.0-34.9,adult check blood sugar 4 times per day Unchanged Misc Prescription (Pen tip needles for Humulin N insulin pen) See instructions use bid with insulin dosing Unchanged omeprazole (omeprazole 40 mg Cap-DR) 1 Capsules By Mouth Every day Left lower quadrant pain Change in stool Acid reflux Diabetes mellitus type I Non-smoker BMI 34.0-34.9,adult Duration: 90 Days Allergies metFORMIN (Unknown) penicillin (Unknown) Problems Ongoing - Any problem that you are currently receiving treatment for. Acid reflux Back pain BMI 34.0-34.9,adult Change in stool Degenerative disc disease, lumbar Diabetes mellitus type I Fatigue GERD (gastroesophageal reflux disease) Hip pain Hyperlipemia Hyperlipidemia Hypothyroid Induratio penis plastica Left lower quadrant pain Low hemoglobin Nonsmoker Obesity Obesity (BMI 30-39.9) Obesity with serious comorbidity Prostate cancer screening Shortness of breath Sinus tachycardia (more content not included)... Normal [facility] CBC w/ Auto Diffon 5 Basophils/100 WBC (Bld) 0.6 % Normal 0.0-2.0 [facility] Comment on above: Performed By: #### 2 [id number] #### [facility] [address] [place] [address] Basophils/Leukocytes Auto (Bld) [Pure # fraction] 0.0 E9/L Normal 0.0-0.2 [facility] Comment on above: Performed By: #### 2 [id number] #### [facility] [address] [place] [address] Eosinophils (Bld) [#/Vol] 0.5 E9/L Normal 0.0-0.5 [facility] Comment on above: Performed By: #### 2 [id number] #### [facility] [address] [place] [address] Eosinophils/100 WBC (Bld) 7.4 % Normal 0.0-8.0 [facility] Comment on above: Performed By: #### 2 [id number] #### [facility] [address] [place] [address] Erythrocyte distribution width (RBC) [Ratio] 15.5 % High 10.9-14.2 [facility] Comment on above: Performed By: #### 2 [id number] #### [facility] [address] [place] [address] Hematocrit (Bld) [Volume fraction] 31.8 % Low 37.7-49.0 [facility] Comment on above: Performed By: #### 2 [id number] #### [facility] [address] [place] [address] Hemoglobin (Bld) [Mass/Vol] 10.5 g/dL Low 13.5-17.5 [facility] Comment on above: Performed By: #### 2 [id number] #### [facility] [address] [place] [address] Lymphocytes (Bld) [#/Vol] 1.7 E9/L Normal 1.0-4.0 [facility] Comment on above: Performed By: #### 2 [id number] #### [facility] [address] [place] [address] Lymphocytes/100 WBC (Bld) 27.1 % Normal 14.0-50.0 [facility] Comment on above: Performed By: #### 2 [id number] #### [facility] [address] [place] [address] MCH (RBC) [Entitic mass] 26.6 pg Low 27.0-34.0 [facility] Comment on above: Performed By: #### 2 [id number] #### [facility] [address] [place] [address] MCHC (RBC) [Mass/Vol] 32.9 g/dL Normal 31.4-36.0 [facility] Comment on above: Performed By: #### 2 [id number] #### [facility] [address] [place] [address] MCV (RBC) [Entitic vol] 80.9 fL Normal 80.0-100.0 [facility] Comment on above: Performed By: #### 2 [id number] #### [facility] [address] [place] [address] Monocytes (Bld) [#/Vol] 0.5 E9/L Normal 0.2-1.0 [facility] Comment on above: Performed By: #### 2 [id number] #### [facility] [address] [place] [address] Neutrophils (Bld) [#/Vol] 3.6 E9/L Normal 2.0-7.5 [facility] Comment on above: Performed By: #### 2 [id number] #### [facility] [address] [place] [address] Neutrophils/100 WBC (Bld) 56.8 % Normal 36.0-75.0 [facility] Comment on above: Performed By: #### 2 [id number] #### [facility] [address] [place] [address] Platelet mean volume (Bld) [Entitic vol] 8.9 fL Normal 6.4-10.8 [facility] Comment on above: Performed By: #### 2 [id number] #### [facility] [address] [place] [address] Platelets (Bld) [#/Vol] 353.0 E9/L Normal 150.0-500.0 [facility] Comment on above: Performed By: #### 2 [id number] #### [facility] [address] [place] [address] RBC (Bld) [#/Vol] 3.9 E12/L Low 4.3-5.9 [facility] Comment on above: Performed By: #### 2 [id number] #### [facility] [address] [place] [address] WBC corrected for nucl RBC Auto (Bld) [#/Vol] 6.3 E9/L Normal 4.0-11.0 [facility] Comment on above: Performed By: #### 2 [id number] #### [facility] [address] [place] [address] CHEMISTRYOrdered By: SYSTEM SYSTEM on 02-18-2025 Ferritin [Mass/Vol] 8 ng/mL Low 24 - 336 ng/mL Remisol Chem Iron [Mass/Vol] 30 ug/dL Low 35 - 153 mcg/dL Remisol Chem Iron binding capacity [Mass/Vol] 449 ug/dL High 250 - 400 mcg/dL Remisol Chem Transferrin [Mass/Vol] 321 mg/dL Normal 200 - 370 mg/dL Remisol Chem Family Medicine Office/Clini c Noteon 02-18-2025 Family Medicine Office/Clinic Note Family Medicine Office/Clinic Note HPI Staff Daivd is a 64 year old male presenting to discuss getting labs done Pt would like to have his iron checked Pt likes to give blood and donate last few times was unable to give blood due to iron level was low, pt believes the level was around 11 Pt states he feels tired all the time . History of Present Illness pt presents today to have iron checks. has been unable to donate blood recently. feeling tired all the time Review of Systems PHQ Score Initial Depression Screen Score: 0 SCORE Physical Exam Vitals & Measurements HR: 80(Peripheral) RR: 18 BP: 122/78 SpO2: 98% HT: 190.0 cm HT: 75 in WT: 120.6 kg WT: 265.877 lb BMI: 33.41 General: alert, no acute distress ENMT: oral mucosa moist, no pharyngeal erythema or exudate Cardiovascular: regular rate and rhythm, normal peripheral perfusion Respiratory: Lungs CTA, respirations non labored Extremities: no deformity, no trauma Neurological: oriented x 4, LOC appropriate for age, CN II-XII intact, motor strength equal & normal bilaterally, speech normal Assessment/Plan 1. Low hemoglobin (D64.9: Anemia, unspecified) pt tried to donate blood and was told his iron was too low. will check labs today. pt denies dark, tarry or bloody stool. will start iron supplement depending on results. if no improvement may consider referral to GI for EGD. pt was a heavy drinker and may have ulcers causing this issue. RTC end of March Ordered: CBC w/ Auto Diff Ferritin Iron Level Lab Specimen Collect [id number] TIBC Calculated 2. Fatigue (R53.83: Other fatigue) pt c/o worsening fatigue. will check labs today. Ordered: CBC w/ Auto Diff Ferritin Iron Level Lab Specimen Collect [id number] TIBC Calculated 3. BMI 33.0-33.9,adult (Z68.33: Body mass index [BMI] 33.0-33.9, adult) BMI education pt is down a couple pounds Ordered: Lab Specimen Collect [id number] 4. Non-smoker (Z78.9: Other specified health status) continue not smoking Ordered: Lab Specimen Collect [id number] Follow-up No qualifying data available Problem List/Past Medical History Ongoing Acid reflux Back pain BMI 34.0-34.9,adult Change in stool Degenerative disc disease, lumbar Diabetes mellitus type I Fatigue GERD (gastroesophageal reflux disease) Hip pain Hyperlipemia Hyperlipidemia Hypothyroid Induratio penis plastica Left lower quadrant pain Low hemoglobin Nonsmoker Obesity Obesity (BMI 30-39.9) Obesity with serious comorbidity Prostate cancer screening Shortness of breath Sinus tachycardia Stenosis of intervertebral foramina Tendonitis Weight gain Wellness examination Historical No qualifying data Procedure/Surgical History Cardiac catheter, Colonoscopy, History of nasal sinus surgery, T and A (tonsillectomy and adenoidectomy) postoperative education. Medications atorvastatin 20 mg Tab, See Instructions celecoxib 200 mg Cap, 200 mg= 1 cap(s), Oral, BID, 3 refills cyclobenzaprine 10 mg Tab, 10 mg= 1 tab(s), Oral, BID, PRN, 2 refills dicyclomine 10 mg Cap, See Instructions fluticasone Nasal 0.05 mg/inh [place], See Instructions gabapentin 300 mg Cap, 300 mg= 1 cap(s), Oral, TID glyBURIDE 5 mg Tab, 5 mg= 1 tab(s), Oral, BID, 3 refills HumuLIN N 100 units/mL Injection-Insulin, 28 unit(s), SubCutaneous, BID, 3 refills insulin syringe 0.3ml 29Gx1/2 inch, See Instructions, 1 refills levothyroxine 175 mcg (0.175 mg) Tab, 175 mcg= 1 tab(s), Oral, Daily, 3 refills Metoprolol tartrate 50 mg Tab, 50 mg= 1 tab(s), Oral, Daily, 3 refills Misc DME Prescription, See Instructions, 3 refills omeprazole 40 mg Cap-DR, 40 mg= 1 cap(s), Oral, Daily, 3 refills One touch ultra 2 with device kit, See Instructions, 1 refills One touch ultra glucose monitor, See Instructions one touch ultra test strips, See Instructions, 4 refills Pen tip needles for Humulin N insulin pen, See Instructions, 4 refills Trulicity Pen 3 mg/0.5 mL subcutaneous solution, 3 mg, SubCutaneous, qWeek, 3 refills Allergies metFORMIN (Unknown) penicillin (Unknown) Social History Alcohol Current, Beer, 1-2 times per month, 12/30/2024 Substance Abuse Current, Gummies, 3-5 times per week, Previous treatment: None., 12/30/2024 Tobacco - No Risk, 05/13/2023 Never (less than 100 in lifetime) Tobacco Use:. Never Smokeless Tobacco Use:. Household tobacco concerns: No. Yes, 12/30/2024 Family History Cardiac arrest: Father. Diabetes mellitus type 2: Father and Brother. Immunizations Vaccine Date Status influenza virus vaccine, inactivated 10/16/2024 Given influenza virus vaccine, inactivated 10/07/2023 Given influenza virus vaccine, inactivated 10/03/2022 Recorded SARS-CoV-2 (COVID-19) [id number] 10/03/2022 Recorded SARSCoV2 mRNA(tozinamer-mick- sucros) vac 04/26/2022 Recorded influenza virus vaccine, inactivated 09/20/2021 Recorded SARS-CoV-2 (COVID-19) mRNA [id number] vax 09/20/2021 Recorded SARS-CoV-2 (COVID-19) mRNA (more content not included)... Normal [facility] Comment on above: Result Comment: Elec tronically Signed By: Ghislaine Pichardo\.br\Date and Time Signed: 02/18/25 14:35 EDT Ferritinon 02-18-2025 Ferritin [Mass/Vol] 8 ng/mL Low 24-336 [facility] Comment on above: Performed By: #### 2 [id number] #### [facility] [address] [place] [address] HEMATOLOGYOrdered By: SYSTEM SYSTEM on 02-18-2025 Basophils/100 WBC (Bld) 0.6 % Normal 0.0 - 2.0 % Remisol Heme Basophils/Leukocytes Auto (Bld) [Pure # fraction] 0.0 E9/L Normal 0.0 - 0.2 E9/L Remisol Heme Eosinophils (Bld) [#/Vol] 0.5 E9/L Normal 0.0 - 0.5 E9/L Remisol Heme Eosinophils/100 WBC (Bld) 7.4 % Normal 0.0 - 8.0 % Remisol Heme Erythrocyte distribution width (RBC) [Ratio] 15.5 % High 10.9 - 14.2 % Remisol Heme Hematocrit (Bld) [Volume fraction] 31.8 % Low 37.7 - 49.0 % Remisol Heme Hemoglobin (Bld) [Mass/Vol] 10.5 g/dL Low 13.5 - 17.5 gm/dL Remisol Heme Lymphocytes (Bld) [#/Vol] 1.7 E9/L Normal 1.0 - 4.0 E9/L Remisol Heme Lymphocytes/100 WBC (Bld) 27.1 % Normal 14.0 - 50.0 % Remisol Heme MCH (RBC) [Entitic mass] 26.6 pg Low 27.0 - 34.0 pg Remisol Heme MCHC (RBC) [Mass/Vol] 32.9 g/dL Normal 31.4 - 36.0 gm/dL Remisol Heme MCV (RBC) [Entitic vol] 80.9 fL Normal 80.0 - 100.0 fL Remisol Heme Monocytes (Bld) [#/Vol] 0.5 E9/L Normal 0.2 - 1.0 E9/L Remisol Heme Monocytes/100 WBC (Bld) 8.1 % Normal 4.0 - 14.0 % Remisol Heme Neutrophils (Bld) [#/Vol] 3.6 E9/L Normal 2.0 - 7.5 E9/L Remisol Heme Neutrophils/100 WBC (Bld) 56.8 % Normal 36.0 - 75.0 % Remisol Heme Platelet mean volume (Bld) [Entitic vol] 8.9 fL Normal 6.4 - 10.8 fL Remisol Heme Platelets (Bld) [#/Vol] 353.0 E9/L Normal 150.0 - 500.0 E9/L Remisol Heme RBC (Bld) [#/Vol] 3.9 E12/L Low 4.3 - 5.9 E12/L Remisol Heme WBC corrected for nucl RBC Auto (Bld) [#/Vol] 6.3 E9/L Normal 4.0 - 11.0 E9/L Remisol Heme Ironon 02-18-2025 Iron [Mass/Vol] 30 microgram/dL Low 35-153 [facility] Comment on above: Performed By: #### 2 [id number] #### [facility] [address] [place] [address] TIBC Calculatedon 02-18-2025 Iron binding capacity [Mass/Vol] 449 microgram/dL High 250-400 [facility] Comment on above: Performed By: #### 1 [id number] #### [facility] [address] [place] [address] Transferrin [Mass/Vol] 321 mg/dL Normal 200-370 [facility] Comment on above: Performed By: #### 1 [id number] #### [facility] [address] [place] [address] Reminderson 12-31-2024 Reminders Reminders - From: Ghislaine Pichardo To: [facility] - Clinical; Sent: 12/31/2024 08:38:33 EST Show up: 12/31/2024 08:38:00 EST Subject: Ambulatory Reminder Due Date/Time: 01/01/2025 08:37:00 EST HGBA1C is 8.3. Does he want to increase the Trulicity? will need to recheck HGBA1C in 3 months Results: Date Result Name Ind Value Ref Range 12/30/2024 11:00 Hgb A1C % ((H)) 8.3 % ( - <=5.9) - From: Minerva Suresh (B - Clinical) To: Ghislaine Pichardo; Sent: 12/31/2024 10:55:33 EST Show up: 12/31/2024 10:55:00 EST Subject: RE: Ambulatory Reminder Pt states he has about 10 weeks supply of the 1.5 Trulicity. He would be ok with increasing the dose Normal [facility] Ambulatory Visit Summaryon 0 12-30-2024 Ambulatory Visit Summary Ambulatory Visit Summary ARNOLDO GANT :1960 Visit Date:12/30/2024 Ambulatory Visit Instructions Your Diagnosis Encounter for subsequent annual wellness visit (AWV) in Medicare patient Diabetes mellitus type I Hypothyroid GERD (gastroesophageal reflux disease) Advance directive declined by patient Obesity with serious comorbidity Alcohol screening Your Care Team Attending Physician - Ghislaine Pichardo Primary Care Physician - Ghislaine Pichardo This Is Your Medications List Misc Prescription (Misc DME Prescription) Misc Prescription (One touch ultra glucose monitor) Misc Prescription (Pen tip needles for Humulin N insulin pen) Misc Prescription (insulin syringe 0.3ml 29Gx1/2 inch) Misc Prescription (one touch ultra test strips) atorvastatin (atorvastatin 20 mg Tab) celecoxib (celecoxib 200 mg Cap) cyclobenzaprine (cyclobenzaprine 10 mg Tab) dulaglutide (Trulicity Pen 1.5 mg/0.5 mL subcutaneous solution) gabapentin (gabapentin 300 mg Cap) glyBURIDE (glyBURIDE 5 mg Tab) insulin isophane (HumuLIN N 100 units/mL Injection-Insulin) levothyroxine (levothyroxine 175 mcg (0.175 mg) Tab) metoprolol (Metoprolol tartrate 50 mg Tab) omeprazole (omeprazole 40 mg Cap-DR) Procedures Performed Cardiac catheter, Colonoscopy, History of nasal sinus surgery, T and A (tonsillectomy and adenoidectomy) postoperative education. Discharge Vitals Heart Rate (Peripheral) 78 Blood Pressure 122/80 Height 190 cm Height 75 in Weight 121.6 kg Weight 268.082 lb BMI 33.68 What to do next Scheduled Follow-Up Appointments 2025 11:00 AM EST Where: [place] [phone]- Someone Will Contact You Regarding These Appointments [facility] [place] External Ambulatory Referral, Orthopaedics, Dr. Mcdermott-, 12/30/24 11:33:00 EST, BMI 33.0-33.9,adult Left hip pain Arthritis of left hip Medications What How Much When Why Instructions Unchanged atorvastatin (atorvastatin 20 mg Tab) 1 Tablets By Mouth Every day Duration: 90 Days Unchanged celecoxib (celecoxib 200 mg Cap) 1 Capsules By Mouth 2 times a day Unchanged cyclobenzaprine (cyclobenzaprine 10 mg Tab) 1 Tablets By Mouth 2 times a day as needed for for spasm Unchanged dulaglutide (Trulicity Pen 1.5 mg/ 0.5 mL subcutaneous solution) See instructions INJECT THE CONTENTS OF ONE PEN SUBCUTANEOUSLY WEEKLY DIRECTED Unchanged gabapentin (gabapentin 300 mg Cap) 1 Capsules By Mouth 3 times a day Wellness examination Diabetes mellitus type I Hyperlipemia Hypothyroid Prostate cancer screening Back pain BMI 34.0-34.9,adult Obesity with serious comorbidity Unchanged glyBURIDE (glyBURIDE 5 mg Tab) 1 Tablets By Mouth 2 times a day Duration: 90 Days Unchanged insulin isophane (HumuLIN N 100 units/ mL Injection-Insulin) 28 Units Subcutaneous 2 times a day provider increase dose to 28 units BID Unchanged levothyroxine (levothyroxine 175 mcg (0.175 mg) Tab) 1 Tablets By Mouth Every day Unchanged metoprolol (Metoprolol tartrate 50 mg Tab) 1 Tablets By Mouth Every day Unchanged Misc Prescription (insulin syringe 0.3ml 29Gx1/ 2 inch) See instructions use when giving insulin Unchanged Misc Prescription (Misc DME Prescription) See instructions BD insulin syringes 0.3ml, 29GX1/ 2 needles Use bid to inject insulin E10.8 Unchanged Misc Prescription (One touch ultra glucose monitor) See instructions Left lower quadrant pain Change in stool Acid reflux Diabetes mellitus type I Non-smoker BMI 34.0-34.9,adult Check blood sugar 4 times per day Unchanged Misc Prescription (one touch ultra test strips) See instructions Left lower quadrant pain Change in stool Acid reflux Diabetes mellitus type I Non-smoker BMI 34.0-34.9,adult check blood sugar 4 times per day Unchanged Misc Prescription (Pen tip needles for Humulin N insulin pen) See instructions use bid with insulin dosing Unchanged omeprazole (omeprazole 40 mg Cap-DR) 1 Capsules By Mouth Every day Left lower quadrant pain Change in stool Acid reflux Diabetes mellitus type I Non-smoker BMI 34.0-34.9,adult Duration: 90 Days Allergies metFORMIN (Unknown) penicillin (Unknown) Problems Ongoing - Any problem that you are currently receiving treatment for. Acid reflux Back pain BMI 34.0-34.9,adult Change in stool Degenerative disc disease, lumbar Diabetes mellitus type I GERD (gastroesophageal reflux disease) Hip pain Hyperlipemia Hyperlipidemia Hypothyroid Induratio penis plastica Left lower quadrant pain Nonsmoker Obesity Obesity (BMI 30-39.9) Obesity with serious comorbidity Prostate cancer screening Shortness of breath Sinus tachycardia Stenosis of intervertebral foramina Tendonitis Weight gain Wellness examination Patient Survey You may receive a survey via text or e-mail asking about your office visit. Please share your experience with us by (more content not included)... Normal [facility] Family Medicine Office/Clini c Noteon 12-30-2024 Family Medicine Office/Clinic Note Family Medicine Office/Clinic Note Chief Complaint Subsequent Medicare Wellness Review of Systems PHQ Score Initial Depression Screen Score: 1 SCORE Physical Exam Vitals & Measurements HR: 78(Peripheral) BP: 122/80 SpO2: 98% HT: 190 cm HT: 75 in WT: 121.6 kg WT: 268.082 lb BMI: 33.68 Assessment/Plan 1. Encounter for subsequent annual wellness visit (AWV) in Medicare patient (Z00.00: Encounter for general adult medical examination without abnormal findings) The patient was given a customized and personalized print out of all the current AHRQ USPSTF???s recommendations for preventative services and all current CDC recommended immunizations, relevant risk recommendations and the following patient brochures were given. Reviewed Medicare Prevention Services checklist. [facility]-F[facility] Prevention and home safety screening reviewed. Patient denies any falls in last 12 months, voices no worry about falling. Exhibits no problems with sitting, standing or ambulation. Patient aware with keeping walk way area free of clutter to prevent tripping and/or falling. [place] Advance Directives reviewed. See #5. Patient denies any problems with ADL???s and Instrumental ADL???s. Cognitive screening completed with memory and clock face drawing. No deficits noted. Immunization record reviewed, discussed Shingrix vaccine with educational handout and availability. 2 COVID vaccines have been administered, with 3 Boosters received. Allergies and medications reviewed and up to date. No concerns with taking medication as prescribed. Reviewed OTC medications, medication list up to date. Blood tests were reviewed: Discussed what tests need to be updated. Labs were ordered by pcp and drawn at office. No concerns with bowel/ bladder. Colonoscopy last completed 02/06/[address] Yang. Repeat 10 years. Reviewed pain symptoms : chronic back, legs and wrists, rates pain as a 7 out of 10, patient takes Flexeril and edibles for the pain. Reviewed all outside providers that patient follows. Last visit summary notes available in chart and/or have been requested. Patient declines any signs or symptoms of depression at this time. 8 minutes spent with screening and documentation. PHQ2 screening score 1. Patient drinks alcohol monthly or less, denies concerns. 8 minutes spent with screening and documentation. Audit score 3. See #7. Follow up scheduled with PCP, patient had appointment today and reports that he does not nee a follow up. AWV has been scheduled, 12/30/2025. 2. Diabetes mellitus type I (E10.9: Type 1 diabetes mellitus without complications) Patient is compliant on current DM medications: Glyburide and Humulin. Does monitors BS at home occassionally: DM stoplight handout reviewed with s/s to monitor for and report to PCP. Discussed ADA dietary recommendations with low carbs and reduce sugar intake. Patient encouraged to increase daily physical activity, adequate water intake and maintain a healthy weight. Pt follows up with PCP with yearly DM foot checks, Foot check due. Reminded patient to perform at home foot checks to prevent future complications, wash with soap and water, apply lotion to bilateral feet and in-between toes to prevent dryness and/or cracking. Wear proper fitting shoes and loose fitting socks and/or hose. Follows up with yearly DM eye exams, last visit notes have been requested. 3. Hypothyroid (E03.9: Hypothyroidism, unspecified) Patient taking Levothyroxine daily as directed, taking in am on an empty stomach and 30 minutes before eating or taking other medications. Denies concerns with cold intolerance, or change in appetite, constipation, slow growing hair or hair thinning. Follows up with PCP during office visits with blood work and medication management 4. GERD (gastroesophageal reflux disease) (K21.9: Gastro-esophageal reflux disease without esophagitis) Patient is aware of diet changes with healthier eating habits, such as not eating late at night, losing or maintaining a healthy weight. Importance of not smoking and avoiding and/or reducing alcohol intake. Avoid tight clothing around the waist line and try to avoid spicy or high acid foods. Patient taking PPI medications as directed with symptom management. Reviewed nutrition therapy with recommended foods to help control your symptoms. 5. Advance directive declined by patient (Z78.9: Other specified health status) Patient denies having Advance directives/living will. Patient declined forms or information. Patient understands information is available at any time if he changes his mind. 6. Obesity with serious comorbidity (E66.9: Obesity, unspecified) The standard range for ages 18 and older is >=18.5 and < 25 kg/m2. Your BMI 33.68 today was above this range, this falls in the obesity category and there are medical benefits to weight loss. BMI monitoring is helpful with identifying a weight problem that may be related to a medical condition, or may increase the risk for medical problems. (more content not included)... Normal [facility] Comment on above: Result Comment: Elec tronically Signed By: Ghislaine Pichardo\.br\Date and Time Signed: 12/30/24 14:32 EST\.br\Electronically Co-Signed By: Dariela Vale\.br\Date and Time Co-Signed: 12/30/24 12:24 EST Family Medicine Office/Clinic Note Family Medicine Office/Clinic Note [facility] Staff Arnoldo is a 63 year old male presenting for DM follow Patient is here for follow up on Diabetes. How often are you checking your blood sugars? occasionally What are your average readings? when he is checking its around 180 Paresthesias, Ulcerations or sores? no Lisinopril, aspirin, statin therapy? Yes Foot Exam: Eye Exam: Last A1c: Hgb A1C %: 7.5 % High (10/16/24 12:22:00) Questions/Concerns: Pt states insurance [facility] nurse came to house and A1c 6.4 , pt states he hasn't had alcohol since 2023 , Pt states he has woke up middle of the night with anxious feeling in his chest and has checked his BS and it was in the 50's since last OV has had 3 low sugars. Pain characteristics: Pain location: left hip is bone on bone Intensity:6 Onset: Medication used: Pain is constant to left hip and gets worse with standing or sitting for long periods of time. Pt did have imaging done in 2019 Pt would like referral Dr Wong History of Present Illness pt presents today for f/u on diabetes Review of Systems PHQ Score Initial Depression Screen Score: 0 SCORE Physical Exam Vitals & Measurements HR: 78(Peripheral) RR: 8 BP: 122/80 HT: 75 in HT: 190.0 cm WT: 121.6 kg WT: 268.082 lb BMI: 33.68 General: alert, no acute distress ENMT: oral mucosa moist, no pharyngeal erythema or exudate Cardiovascular: regular rate and rhythm, normal peripheral perfusion Respiratory: Lungs CTA, respirations non labored Extremities: no deformity, no trauma Neurological: oriented x 4, LOC appropriate for age, CN II-XII intact, motor strength equal & normal bilaterally, speech normal Assessment/Plan 1. Diabetes mellitus type I (E10.9: Type 1 diabetes mellitus without complications) pt has been making better food choices. stopped drinking alcohol after . is down a couple pounds. has had a couple incidents when he woke up at night with low blood sugar. 50's. He states the couple times this happened. I hadn't eaten since 2pm then gave myself insulin. encouraged him to at least have some protein before giving insulin at bedtime. otherwise he is feeling good denies needs at this time. RTC 3 months Ordered: HgbA1c 2. BMI 33.0-33.9,adult (Z68.33: Body mass index [BMI] 33.0-33.9, adult) BMI education given Ordered: HgbA1c Orders: insulin isophane, 28 unit(s), SubCutaneous, BID, DX E11.69, # 10 mL, Refills(s) 11, Pharmacy: [facility], 190, cm, 10/16/24 10:29:00 EST, Height/Length Dosing, 123.4, kg, 10/16/24 10:29:00 EST, Weight Dosing Follow-up No qualifying data available Problem List/Past Medical History Ongoing Acid reflux Back pain BMI 34.0-34.9,adult Change in stool Degenerative disc disease, lumbar Diabetes mellitus type I GERD (gastroesophageal reflux disease) Hip pain Hyperlipemia Hyperlipidemia Hypothyroid Induratio penis plastica Left lower quadrant pain Nonsmoker Obesity Obesity (BMI 30-39.9) Obesity with serious comorbidity Prostate cancer screening Shortness of breath Sinus tachycardia Stenosis of intervertebral foramina Tendonitis Weight gain Wellness examination Historical No qualifying data Procedure/Surgical History Cardiac catheter, Colonoscopy, History of nasal sinus surgery, T and A (tonsillectomy and adenoidectomy) postoperative education. Medications atorvastatin 20 mg Tab, 20 mg= 1 tab(s), Oral, Daily, 3 refills celecoxib 200 mg Cap, 200 mg= 1 cap(s), Oral, BID, 3 refills cyclobenzaprine 10 mg Tab, 10 mg= 1 tab(s), Oral, BID, PRN, 2 refills gabapentin 300 mg Cap, 300 mg= 1 cap(s), Oral, TID glyBURIDE 5 mg Tab, 5 mg= 1 tab(s), Oral, BID, 3 refills HumuLIN N 100 units/mL Injection-Insulin, 28 unit(s), SubCutaneous, BID, 3 refills insulin syringe 0.3ml 29Gx1/2 inch, See Instructions, 1 refills levothyroxine 175 mcg (0.175 mg) Tab, 175 mcg= 1 tab(s), Oral, Daily, 3 refills Metoprolol tartrate 50 mg Tab, 50 mg= 1 tab(s), Oral, Daily, 3 refills Misc DME Prescription, See Instructions, 3 refills omeprazole 40 mg Cap-DR, 40 mg= 1 cap(s), Oral, Daily, 3 refills One touch ultra glucose monitor, See Instructions one touch ultra test strips, See Instructions, 4 refills Pen tip needles for Humulin N insulin pen, See Instructions, 4 refills Trulicity Pen 1.5 mg/0.5 mL subcutaneous solution, See Instructions Allergies metFORMIN (Unknown) penicillin (Unknown) Social History Alcohol Current. Beer. 1-2 times per week., 10/12/2024 Substance Abuse Current. Gummies. 3-5 times per week. Previous treatment: None., 10/12/2024 Tobacco - No Risk, 05/13/2023 Never (less than 100 in lifetime) Tobacco Use:. Never Smokeless Tobacco Use:. Household tobacco concerns: No. Yes, 10/16/2024 Family History Cardiac arrest: Father. Immunizations Vaccine Date Status influenza virus vaccine, inactivated 10/16/2024 Given influenza virus vaccine, inactivated 10/07/2023 Gi (more content not included)... Normal [facility] Comment on above: Result Comment: Elec tronically Signed By: Ghislaine Pichardo\.br\Date and Time Signed: 12/30/24 11:33 EST [id number] By: Marie Ahmadi on 12-30-2024 HbA1c (Bld) [Mass fraction] 8.3 % High <=5.9 [facility] [place] [employer] Comment on above: Performed By: #### [id number] #### [facility] [address] [place] [address] Reminderson 10-20-2024 Reminders Reminders - From: Ghislaine Pichardo To: [facility] - Clinical; Sent: 10/19/2024 08:15:20 EST Show up: 10/19/2024 08:14:00 EST Subject: Ambulatory Reminder Due Date/Time: 10/20/2024 08:13:00 EST HGBA1C is 7.5. Has he had anymore episodes of low blood sugar since we dropped the night time insulin? If he decides to start dieting again, he can decrease the insulin dose by 1-2 units if he starts getting the low blood sugars again. Results: Date Result Name Ind Value Ref Range 10/16/2024 12:22 Hgb A1C % ((H)) 7.5 % ( - <=5.9) - From: Celsa Simmons M.A. (B - Clinical) To: Ghislaine Pichardo; Sent: 10/20/2024 15:19:11 EST Show up: 10/20/2024 15:17:00 EST Subject: RE: Ambulatory Reminder Patient said that one day over the weekend he could not remember which day he had an episode and his sugar was 65, and he said that he will start dieting again Normal [facility] CHEMISTRYOrdered By: Ollie rivero on 10-16-2024 HbA1c (Bld) [Mass fraction] 7.5 % High <=5.9% [facility] [employer] Family Medicine Office/Clini c Noteon 10-16-2024 Family Medicine Office/Clinic Note Family Medicine Office/Clinic Note Chief Complaint 6m follow up HPI Staff Pt presents today for 6m follow up to DM type I, Hyperlipidemia & Hypothyroid Patient is here for follow up on Diabetes. How often are you checking your blood sugars? _? 2x a week What are your average readings?_? 160-180 Are you compliant with your diet? yes? Do you exercise? yes? Are you compliant with your medications or having difficulty affording your medications? no? Do you have any of the following symptoms? Vision problems? no? Lightheadedness? no? Paresthesias, Ulcerations or sores? no? Hgb A1C %: 7.3 % High (04/03/24 12:01:00) Patient is here for follow up on hyperlipidemia: (atorvastatin 20mg) Do you have side effects from the medication? no Refill needed?: not sure Yearly Lipid labs: 04/03/24 Patient is here for follow up on Thyroid Disease. Do you have any of the following symptoms? Change in energy level? yes low energy for the past month Weight change? no Heat/cold intolerance? no Hair/skin/nail changes? no Change in bowels? no Last TSH: TSH: 0.8 mcIU/mL (04/03/24 12:01:00) History of Present Illness pt presents today for DM follow up, having hip pain, due for hgba1c Review of Systems PHQ Score Initial Depression Screen Score: 0 SCORE Physical Exam Vitals & Measurements HR: 79(Peripheral) RR: 18 BP: 142/86 SpO2: 95% HT: 75 in HT: 190 cm WT: 123.4 kg WT: 272.05 lb BMI: 34.18 General: alert, no acute distress ENMT: oral mucosa moist, no pharyngeal erythema or exudate Cardiovascular: regular rate and rhythm, normal peripheral perfusion Respiratory: Lungs CTA, respirations non labored Extremities: no deformity, no trauma Neurological: oriented x 4, LOC appropriate for age, CN II-XII intact, motor strength equal & normal bilaterally, speech normal Assessment/Plan 1. Diabetes mellitus type I (E10.9: Type 1 diabetes mellitus without complications) pt presents for follow up on diabetes. pt was watching his diet and decreased carbs and had 5 episodes where his blood sugar bottomed out while sleeping or in early am. will check HGBA1C today. pt to decrease PM dose of insulin to 24 units instead of 28. will check HGBA1C today. may adjust the insulin dose according to those results. RTC in april for annual wellness visit with labs Ordered: influenza virus vaccine, inactivated, 0.5 mL, Susp-Inj, IntraMuscular, Once, Stop date 10/16/24 12:00:00 EST, Routine, Start date 10/16/24 12:00:00 EST omeprazole, 40 mg = 1 cap(s), Oral, Daily, X 90 day(s), # 90 cap(s), Refills(s) 3, Pharmacy: [facility], 190, cm, 10/16/24 10:29:00 EST, Height/Length Dosing, 123.4, kg, 10/16/24 10:29:00 EST, Weight Dosing omeprazole, 40 mg = 1 cap(s), Oral, Daily, # 90 cap(s), Refills(s) 3, Pharmacy: [facility], 190, cm, 12/10/23 11:00:00 EST, Height/Length Dosing, 125, kg, 12/10/23 11:00:00 EST, Weight Dosing HgbA1c Lab Specimen Collect [id number] 2. Hip pain (M25.559: Pain in unspecified hip) pt states he was told his left hip is bone on bone. is going to get a name of ortho that he would like referral to. Ordered: influenza virus vaccine, inactivated, 0.5 mL, Susp-Inj, IntraMuscular, Once, Stop date 10/16/24 12:00:00 EST, Routine, Start date 10/16/24 12:00:00 EST HgbA1c Lab Specimen Collect [id number] 3. Acid reflux (K21.9: Gastro-esophageal reflux disease without esophagitis) refill for omeprazole sent Ordered: omeprazole, 40 mg = 1 cap(s), Oral, Daily, X 90 day(s), # 90 cap(s), Refills(s) 3, Pharmacy: [facility], 190, cm, 10/16/24 10:29:00 EST, Height/Length Dosing, 123.4, kg, 10/16/24 10:29:00 EST, Weight Dosing omeprazole, 40 mg = 1 cap(s), Oral, Daily, # 90 cap(s), Refills(s) 3, Pharmacy: [facility], 190, cm, 12/10/23 11:00:00 EST, Height/Length Dosing, 125, kg, 12/10/23 11:00:00 EST, Weight Dosing 4. BMI 34.0-34.9,adult (Z68.34: Body mass index [BMI] 34.0-34.9, adult) BMI education given Ordered: influenza virus vaccine, inactivated, 0.5 mL, Susp-Inj, IntraMuscular, Once, Stop date 10/16/24 12:00:00 EST, Routine, Start date 10/16/24 12:00:00 EST omeprazole, 40 mg = 1 cap(s), Oral, Daily, X 90 day(s), # 90 cap(s), Refills(s) 3, Pharmacy: [facility], 190, cm, 10/16/24 10:29:00 EST, Height/Length Dosing, 123.4, kg, 10/16/24 10:29:00 EST, Weight Dosing omeprazole, 40 mg = 1 cap(s), Oral, Daily, # 90 cap(s), Refills(s) 3, Pharmacy: [facility], 190, cm, 12/10/23 11:00:00 EST, Height/Length Dosing, 125, kg, 12/10/23 11:00:00 EST, Weight Dosing HgbA1c Lab Specimen Collect [id number] 5. Obesity (E66.9: Obesity, unspecified) see above Ordered: influenza virus vaccine, inactivated, 0.5 mL, Susp-Inj, IntraMuscular, Once, Stop date 10/16/24 12:00:00 EST, Routine, Start date 10/16/24 12:00:00 EST HgbA1c Lab Specimen Collect [id number] 6. Nonsmoker (Z78.9: Other specified health status) continue not smoking Ordered: influenza virus vaccine, inactivated, 0.5 mL, Susp-In (more content not included)... Normal [facility] Comment on above: Result Comment: Elec tronically Signed By: Ghislaine Pichardo\.br\Date and Time Signed: 10/16/24 12:29 EST [id number] 10-16-2024 HbA1c (Bld) [Mass fraction] 7.5 % High <=5.9 [facility] Comment on above: Performed By: #### [id number] #### [facility] [address] [place] [address] Reminderson 04-06-2024 Reminders - From: Ghislaine Pichardo To: [facility] - Clinical; Sent: 04/06/2024 08:32:41 EDT Show up: 04/06/2024 08:33:00 EDT Subject: Ambulatory Reminder Due Date/Time: 04/07/2024 08:32:00 EDT HGBA1C improving it is now 7.3 Results: Date Result Name Ind Value Ref Range 04/03/2024 12: WBC 5.8 E9/L (4.0 - 11.0) 04/03/2024 12:01 RBC ((L)) 4.2 E12/L (4.3 - 5.9) 04/03/2024 12:01 HGB ((L)) 11.5 gm/dL (13.5 - 17.5) 04/03/2024 12: Hct ((L)) 36.0 % (37.7 - 49.0) 04/03/2024 12: MCV 86.6 fL (80.0 - 100.0) 04/03/2024 12: MCH 27.6 pg (27.0 - 34.0) 04/03/2024 12:01 MCHC 31.8 gm/dL (31.4 - 36.0) 04/03/2024 12:01 RDW 13.5 % (10.9 - 14.2) 04/03/2024 12:01 Platelet 339.0 E9/L (150.0 - 500.0) 04/03/2024 12:01 MPV 8.6 fL (6.4 - 10.8) 04/03/2024 12:01 Neutro Auto 56.6 % (36.0 - 75.0) 04/03/2024 12:01 Lymph Auto 26.8 % (14.0 - 50.0) 04/03/2024 12:01 [place] Auto 8.7 % (4.0 - 14.0) 04/03/2024 12:01 Eos Auto 7.1 % (0.0 - 8.0) 04/03/2024 12:01 Basophil Auto 0.8 % (0.0 - 2.0) 04/03/2024 12:01 Neutro Absolute 3.3 E9/L (2.0 - 7.5) 04/03/2024 12:01 Lymph Absolute 1.5 E9/L (1.0 - 4.0) 04/03/2024 12:01 [place] Absolute 0.5 E9/L (0.2 - 1.0) 04/03/2024 12:01 Eos Absolute 0.4 E9/L (0.0 - 0.5) 04/03/2024 12:01 Basophil Absolute 0.0 E9/L (0.0 - 0.2) 04/03/2024 12:01 Glucose Lvl 86 mg/dL (55 - 199) 04/03/2024 12:01 BUN 18 mg/dL (5 - 21) 04/03/2024 12:01 Creatinine 0.9 mg/dL (0.5 - 1.3) 04/03/2024 12:01 eGFR 96 mL/min/1.73 m2 (>=59 - ) 04/03/2024 12:01 BUN/Creat Ratio 20 (10 - 20) 04/03/2024 12:01 Sodium Lvl 136 mmol/L (135 - 145) 04/03/2024 12:01 Potassium Lvl 4.4 mmol/L (3.5 - 5.3) 04/03/2024 12:01 Chloride 105 mmol/L (101 - 111) 04/03/2024 12:01 CO2 22 mmol/L (21 - 31) 04/03/2024 12:01 AGAP 13 mEq/L (6 - 16) 04/03/2024 12:01 Calcium Lvl ((L)) 8.7 mg/dL (8.9 - 11.1) 04/03/2024 12:01 Alk Phos 51 Int._Unit/L (21 - 98) 04/03/2024 12:01 ALT 21 Int._Unit/L (6 - 46) 04/03/2024 12:01 AST 29 Int._Unit/L (5 - 43) 04/03/2024 12:01 Total Protein 6.6 gm/dL (6.0 - 7.8) 04/03/2024 12:01 Albumin Lvl 3.9 gm/dL (3.3 - 5.0) 04/03/2024 12:01 Globulin 2.7 gm/dL (1.4 - 4.0) 04/03/2024 12:01 A/G Ratio 1.4 (1.1 - 2.2) 04/03/2024 12:01 Bili Total 0.5 mg/dL (0.0 - 1.1) 04/03/2024 12:01 Hgb A1C % ((H)) 7.3 % ( - <=5.9) 04/03/2024 12:01 Chol 144 mg/dL (120 - 200) 04/03/2024 12:01 Trig 63 mg/dL ( - <=149) 04/03/2024 12:01 HDL 52 mg/dL 04/03/2024 12:01 LDL Direct 89 mg/dL ( - <=129) 04/03/2024 12:01 VLDL 13 mg/dL (7 - 40) 04/03/2024 12:01 TSH 0.80 mcIU/mL (0.34 - 5.60) 04/03/2024 12:01 PSA Scrn Tot. 1.6 ng/mL (0.1 - 3.5) Patient informed and voiced understanding. Normal [facility] Ambulatory Visit Summaryon 0 04-03-2024 Ambulatory Visit Summary HUGO, ARNOLDO :1960 Visit Date:04/03/2024 Ambulatory Visit Instructions Your Diagnosis Wellness examination Diabetes mellitus type I Hyperlipemia Hypothyroid Prostate cancer screening Back pain BMI 34.0-34.9,adult Obesity with serious comorbidity Your Care Team Attending Physician - Ghislaine Pichardo Primary Care Physician - Ghislaine Pichardo This Is Your Medications List Misc Prescription (Misc DME Prescription) Misc Prescription (One touch ultra glucose monitor) Misc Prescription (one touch ultra test strips) atorvastatin (atorvastatin 20 mg Tab) celecoxib (celecoxib 200 mg Cap) cyclobenzaprine (cyclobenzaprine 10 mg Tab) dulaglutide (Trulicity Pen 1.5 mg/0.5 mL subcutaneous solution) esomeprazole (esomeprazole 40 mg Cap-EC) gabapentin (gabapentin 300 mg Cap) glyBURIDE (glyBURIDE 5 mg Tab) insulin isophane (HumuLIN N 100 units/mL Injection-Insulin) levothyroxine (levothyroxine 175 mcg (0.175 mg) Tab) metoprolol (Metoprolol tartrate 50 mg Tab) naproxen (naproxen 500 mg oral enteric coated tablet) omeprazole (omeprazole 40 mg Cap-DR) Procedures Performed Cardiac catheter, Colonoscopy, History of nasal sinus surgery, T and A (tonsillectomy and adenoidectomy) postoperative education. Discharge Vitals Temperature (Temporal Artery) 36.6 ?C Heart Rate (Peripheral) 78 Respiratory Rate 18 Blood Pressure 130/82 Height 190 cm Height 75 in Weight 124.4 kg Weight 273.68 lb BMI 34.46 Medications What How Much When Why Instructions New gabapentin (gabapentin 300 mg Cap) 1 Capsules By Mouth 3 times a day Wellness examination Diabetes mellitus type I Hyperlipemia Hypothyroid Prostate cancer screening Back pain BMI 34.0-34.9,adult Obesity with serious comorbidity Pickup at [facility] New glyBURIDE (glyBURIDE 5 mg Tab) 1 Tablets By Mouth 2 times a day Duration: 90 Days Refills: 3 Pickup at [facility] Unchanged atorvastatin (atorvastatin 20 mg Tab) 1 Tablets By Mouth Every day Duration: 90 Days Unchanged celecoxib (celecoxib 200 mg Cap) 1 Capsules By Mouth 2 times a day Duration: 90 Days Unchanged cyclobenzaprine (cyclobenzaprine 10 mg Tab) See instructions 1 tab at bedtime Unchanged dulaglutide (Trulicity Pen 1.5 mg/ 0.5 mL subcutaneous solution) 1.5 Milligram Subcutaneous Every week Left lower quadrant pain Change in stool Acid reflux Diabetes mellitus type I Non-smoker BMI 34.0-34.9,adult Unchanged esomeprazole (esomeprazole 40 mg Cap-EC) 40 Milligram By Mouth Every day Duration: 90 Days Unchanged insulin isophane (HumuLIN N 100 units/ mL Injection-Insulin) 28 Units Subcutaneous 2 times a day provider increase dose to 28 units BID on HGBA1C 7.7 Unchanged levothyroxine (levothyroxine 175 mcg (0.175 mg) Tab) 1 Tablets By Mouth Every day Duration: 90 Days Unchanged metoprolol (Metoprolol tartrate 50 mg Tab) 1 Tablets By Mouth Every day Duration: 90 Days Unchanged Misc Prescription (Misc DME Prescription) See instructions BD insulin syringes 0.3ml, 29GX1/ 2 needles Use bid to inject insulin E10.8 Unchanged Misc Prescription (One touch ultra glucose monitor) See instructions Left lower quadrant pain Change in stool Acid reflux Diabetes mellitus type I Non-smoker BMI 34.0-34.9,adult Check blood sugar 4 times per day Unchanged Misc Prescription (one touch ultra test strips) See instructions Left lower quadrant pain Change in stool Acid reflux Diabetes mellitus type I Non-smoker BMI 34.0-34.9,adult check blood sugar 4 times per day Unchanged naproxen (naproxen 500 mg oral enteric coated tablet) 1 Tablets By Mouth 2 times a day Duration: 90 Days Unchanged omeprazole (omeprazole 40 mg Cap-DR) 1 Capsules By Mouth Every day Left lower quadrant pain Change in stool Acid reflux Diabetes mellitus type I Non-smoker BMI 34.0-34.9,adult Pharmacy Information [facility]: [address] [phone] [facility]: [address] [place], [place] [phone] Allergies metFORMIN (Unknown) penicillin (Unknown) Problems Ongoing - Any problem that you are currently receiving treatment for. Acid reflux Back pain BMI 34.0-34.9,adult Change in stool Degenerative disc disease, lumbar Diabetes mellitus type I GERD (gastroesophageal reflux disease) Hyperlipemia Hyperlipidemia Hypothyroid Induratio penis plastica Left lower quadrant pain Obesity with serious comorbidity Prostate cancer screening Shortness of breath Sinus tachycardia Stenosis of intervertebral foramina Tendonitis Weight gain Wellness examination Patient Survey You may receive a survey via text or e-mail asking about your office visit. Please share your experience with us by completing your survey. We appreciate your feedback and thank you for choosing us for your care. Normal [facility] CBC w/ Auto Diffon 4 Basophils/100 WBC (Bld) 0.8 % Normal 0.0-2.0 [facility] Comment on above: Performed By: #### 2 273925, [id number], 7127711, 87845038, 211256174, 0611999 #### [facility] [address] [place] [address] Basophils/Leukocytes Auto (Bld) [Pure # fraction] 0.0 E9/L Normal 0.0-0.2 [facility] Comment on above: Performed By: #### 2 264603, 50485700, 6159383, 27725385, 545623482, 1604800 #### [facility] [address] [place] [address] Eosinophils (Bld) [#/Vol] 0.4 E9/L Normal 0.0-0.5 [facility] Comment on above: Performed By: #### 2 840451, 17830064, 9449827, 27624706, 577357767, 8365702 #### [facility] [address] [place] [address] Eosinophils/100 WBC (Bld) 7.1 % Normal 0.0-8.0 [facility] Comment on above: Performed By: #### 2 712565, 18611590, 4001815, 57740515, 429801645, 7678003 #### [facility] [address] [place] [address] Erythrocyte distribution width (RBC) [Ratio] 13.5 % Normal 10.9-14.2 [facility] Comment on above: Performed By: #### 2 853772, 79521707, 4917424, 94858627, 341412514, 4190532 #### [facility] [address] [place] [address] Hematocrit (Bld) [Volume fraction] 36.0 % Low 37.7-49.0 [facility] Comment on above: Performed By: #### 2 421853, 15316493, 4044630, 92775611, 022751501, 5292129 #### [facility] [address] [place] [address] Hemoglobin (Bld) [Mass/Vol] 11.5 g/dL Low 13.5-17.5 [facility] Comment on above: Performed By: #### 2 858354, 53515880, 1651053, 67541591, 953298946, 1764534 #### [facility] [address] [place] [address] Lymphocytes (Bld) [#/Vol] 1.5 E9/L Normal 1.0-4.0 [facility] Comment on above: Performed By: #### 2 543767, 19032386, 0620338, 59412352, 564665551, 0535099 #### [facility] [address] [place] [address] Lymphocytes/100 WBC (Bld) 26.8 % Normal 14.0-50.0 [facility] Comment on above: Performed By: #### 2 391456, 94684899, 1306313, 80450385, 338994028, 3053999 #### [facility] [address] [place] [address] MCH (RBC) [Entitic mass] 27.6 pg Normal 27.0-34.0 [facility] Comment on above: Performed By: #### 2 217080, 06947819, 6124807, 61420857, 482851119, 8212817 #### [facility] [address] [place] [address] MCHC (RBC) [Mass/Vol] 31.8 g/dL Normal 31.4-36.0 [facility] Comment on above: Performed By: #### 2 278998, 19320330, 9110261, 60394293, 734907266, 8137999 #### [facility] [address] [place] [address] MCV (RBC) [Entitic vol] 86.6 fL Normal 80.0-100.0 [facility] Comment on above: Performed By: #### 2 182450, 94287272, 9349166, 23937797, 475328312, 9214661 #### [facility] [address] [place] [address] Monocytes (Bld) [#/Vol] 0.5 E9/L Normal 0.2-1.0 [facility] Comment on above: Performed By: #### 2 048801, 17754981, 6647334, 50795450, 778669942, 9180420 #### [facility] [address] [place] [address] Neutrophils (Bld) [#/Vol] 3.3 E9/L Normal 2.0-7.5 [facility] Comment on above: Performed By: #### 2 784308, 45027149, 0810300, 53028871, 337846382, 0188492 #### [facility] [address] [place] [address] Neutrophils/100 WBC (Bld) 56.6 % Normal 36.0-75.0 [facility] Comment on above: Performed By: #### 2 732501, 02472961, 0443738, 79935538, 875673245, 9764706 #### [facility] [address] [place] [address] Platelet 339.0 E9/L Normal 150.0-500.0 [facility] Comment on above: Performed By: #### 2 616529, 25592516, 5165954, 50281963, 013621076, 5955457 #### [facility] [address] [place] [address] Platelet mean volume (Bld) [Entitic vol] 8.6 fL Normal 6.4-10.8 [facility] Comment on above: Performed By: #### 2 597870, 84041064, 0321768, 24477839, 612052948, 2162090 #### [facility] [address] [place] [address] RBC (Bld) [#/Vol] 4.2 E12/L Low 4.3-5.9 [facility] Comment on above: Performed By: #### 2 468081, 08563404, 6467877, 77060664, 350965232, 8885290 #### [facility] [address] [place] [address] WBC corrected for nucl RBC Auto (Bld) [#/Vol] 5.8 E9/L Normal 4.0-11.0 [facility] Comment on above: Performed By: #### 2 790212, 65707202, 6203445, 55323958, 323482194, 4350898 #### [facility] [address] [place] [address] CHEMISTRYOrdered By: Ollie rivero on 04-03-2024 Albumin [Mass/Vol] 3.9 g/dL Normal 3.3 - 5.0 gm/dL [facility] Albumin/Globulin [Mass ratio] 1.4 {ratio} Normal 1.1 - 2.2 [facility] ALP [Catalytic activity/Vol] 51 [iU]/d Normal 21 - 98 Int._Unit/L [facility] ALT No additional P-5'-P [Catalytic activity/Vol] 21 [iU]/d Normal 6 - 46 Int._Unit/L [facility] Anion gap [Moles/Vol] 13 mmol/L Normal 6 - 16 mEq/L R [facility] AST [Catalytic activity/Vol] 29 [iU]/d Normal 5 - 43 Int._Unit/L [facility] Bilirubin [Mass/Vol] 0.5 mg/dL Normal 0.0 - 1 .1 mg/dL [facility] Calcium [Mass/Vol] 8.7 mg/dL Low 8.9 - 11. 1 mg/dL [facility] Chloride [Moles/Vol] 105 mmol/L Normal 101 - 1 11 mmol/L [facility] Cholesterol [Mass/Vol] 144 mg/dL Normal 120 - 200 mg/dL [facility] Cholesterol in HDL [Mass/Vol] 52 mg/dL Invalid Interpretation Code [facility] Comment on above: Result Comment: '>= 60 LOW RISK' '<= 40 HIGH RISK' Cholesterol in LDL [Mass/Vol] 89 mg/dL Normal <=129mg/dL [facility] Cholesterol in VLDL [Mass/Vol] 13 mg/dL Normal 7 - 40 mg/dL [facility] CO2 [Moles/Vol] 22 mmol/L Normal 21 - 31 mmol/L [facility] Globulin (S) [Mass/Vol] 2.7 g/dL Normal 1.4 - 4.0 gm/dL [facility] Glucose [Mass/Vol] 86 mg/dL Normal 55 - 199 mg/dL [facility] Potassium [Moles/Vol] 4.4 mmol/L Normal 3.5 - 5.3 mmol/L [facility] Prostate specific Ag [Mass/Vol] 1.6 ng/mL Normal 0.1 - 3.5 ng/mL [facility] Comment on above: Interpretive Data: T he concentration of PSA determined by different manufacturers can vary due to differences in assay methods and reagent specificity. Values obtained from different assay methods cannot be used interchangeably. The methodology used for this result was chemiluminescence using [employer] Access Hybritech PSA reagent. Protein [Mass/Vol] 6.6 g/dL Normal 6.0 - 7.8 gm/dL [facility] Sodium [Moles/Vol] 136 mmol/L Normal 135 - 145 mmol/L [facility] Triglyceride [Mass/Vol] 63 mg/dL Normal <=149mg/dL [facility] TSH Qn 0.80 m[IU]/L Normal 0.34 - 5.60 mcIU/mL [facility] Urea nitrogen [Mass/Vol] 18 mg/dL Normal 5 - 21 mg/dL [facility] CHEMISTRYOrdered By: SYSTEM SYSTEM on 04-03-2024 Creatinine [Mass/Vol] 0.9 mg/dL Normal 0.5 - 1.3 mg/dL [facility] eGFR 96 mL/min/1.73 m2 Normal >=59mL/min /1 .73 m2 [facility] Urea nitrogen/Creatinine [Mass ratio] 20 mg/mg Normal 10 - [facility] CHEMISTRYOrdered By: Garry millan on 04-03-2024 HbA1c (Bld) [Mass fraction] 7.3 % High <=5.9% [facility] ChemAutoSS CMPon 04-03-2024 Creatinine [Mass/Vol] 0.9 mg/dL Normal 0.5-1.3 [facility] Comment on above: Performed By: #### 2 199876, 38534412, 5877308, 95670159, 558346508, 1877075 #### [facility] [address] [place] [address] Urea nitrogen/Creatinine [Mass ratio] 20 No Units Normal - [facility] Comment on above: Performed By: #### 2 598524, 93487924, 2248744, 82466915, 946499234, 4582327 #### [facility] [address] [place] [address] Albumin [Mass/Vol] 3.9 g/dL Normal 3.3-5.0 [facility] Comment on above: Performed By: #### 2 265022, 46180904, 8811442, 93987263, 082440991, 4991128 #### [facility] [address] [place] [address] Albumin/Globulin (S) [Mass conc ratio] 1.4 Normal 1.1-2.2 [facility] Comment on above: Performed By: #### 2 594621, 28694536, 5901436, 21753934, 450339533, 8761263 #### [facility] [address] [place] [address] ALP [Catalytic activity/Vol] 51 Int._Unit/L Normal 21-98 [facility] Comment on above: Performed By: #### 2 808822, 71632105, 1929442, 84007927, 868678622, 5126512 #### [facility] [address] [place] [address] ALT No additional P-5'-P [Catalytic activity/Vol] 21 Int._Unit/L Normal 6-46 [facility] Comment on above: Performed By: #### 2 255767, 91741438, 0689982, 50785128, 283413962, 4379810 #### [facility] [address] [place] [address] Anion gap [Moles/Vol] 13 mmol/L Normal 6-16 [facility] Comment on above: Performed By: #### 2 175792, 64085146, 3075901, 45220621, 573423345, 2575375 #### [facility] [address] [place] [address] AST [Catalytic activity/Vol] 29 Int._Unit/L Normal 5-43 [facility] Comment on above: Performed By: #### 2 888691, 84223251, 3241203, 53516616, 378982320, 7788254 #### [facility] [address] [place] [address] Bilirubin [Mass/Vol] 0.5 mg/dL Normal 0.0-1.1 [facility] Comment on above: Performed By: #### 2 954834, 28160235, 4776736, 77559859, 743640604, 4340706 #### [facility] [address] [place] [address] Calcium [Mass/Vol] 8.7 mg/dL Low 8.9-11.1 [facility] Comment on above: Performed By: #### 2 599201, 87569325, 6680874, 68702225, 796505324, 8156009 #### [facility] [address] [place] [address] Chloride [Moles/Vol] 105 mmol/L Normal 101-111 [facility] Comment on above: Performed By: #### 2 084485, 27996662, 3198377, 61496324, 086338976, 3314969 #### [facility] [address] [place] [address] CO2 [Moles/Vol] 22 mmol/L Normal 21-31 [facility] Comment on above: Performed By: #### 2 791641, 37445054, 1199592, 38377436, 231017892, 6009586 #### [facility] [address] [place] [address] Globulin (S) [Mass/Vol] 2.7 g/dL Normal 1.4-4.0 [facility] Comment on above: Performed By: #### 2 902649, 88950314, 5150690, 98777119, 397259033, 8409239 #### [facility] [address] [place] [address] Glucose [Mass/Vol] 86 mg/dL Normal 55-199 [facility] Comment on above: Performed By: #### 2 113894, 82901730, 7536302, 91651122, 811101199, 7345024 #### [facility] [address] [place] [address] Potassium [Moles/Vol] 4.4 mmol/L Normal 3.5-5.3 [facility] Comment on above: Performed By: #### 2 191925, 54357057, 9294175, 46078087, 397949612, 7979122 #### [facility] [address] [place] [address] Protein [Mass/Vol] 6.6 g/dL Normal 6.0-7.8 [facility] Comment on above: Performed By: #### 2 406049, 95233856, 2168156, 45909150, 237592050, 7435994 #### [facility] [address] [place] [address] Sodium [Moles/Vol] 136 mmol/L Normal 135-145 [facility] Comment on above: Performed By: #### 2 622657, 38363253, 2708311, 18526855, 565459596, 8225899 #### [facility] [address] [place] [address] Urea nitrogen [Mass/Vol] 18 mg/dL Normal 5-21 [facility] Comment on above: Performed By: #### 2 246580, 37606808, 1780102, 98292509, 009908428, 9242851 #### [facility] [address] [place] [address] Family Medicine Office/Clini c Noteon 04-03-2024 Family Medicine Office/Clinic Note HPI Staff Patient presents for diabetes follow up. Patient is here for follow up on Diabetes. How often are you checking your blood sugars? 2 times per day What are your average readings? It's bee all over the place, it's been up to the 300's, and low as 53 Do you have any of the following symptoms? Foot Exam: Unknown last exam Eye Exam: Next Microalbumin: Last A1C: Hgb A1C %: 8.1 % High (12/10/23 11:33:00) Last Chronic Labs: History of Present Illness pt presents today for diabetes follow up. will check HGAB1C today Review of Systems PHQ Score Initial Depression Screen Score: 0 SCORE Physical Exam Vitals & Measurements T: 36.6 ?C(Temporal Artery) HR: 78(Peripheral) RR: 18 BP: 130/82 SpO2: 97% HT: 75 in HT: 190 cm WT: 124.4 kg WT: 273.68 lb BMI: 34.46 General: alert, no acute distress ENMT: oral mucosa moist, no pharyngeal erythema or exudate Cardiovascular: regular rate and rhythm, normal peripheral perfusion Respiratory: Lungs CTA, respirations non labored Extremities: no deformity, no trauma Neurological: oriented x 4, LOC appropriate for age, CN II-XII intact, motor strength equal & normal bilaterally, speech normal Assessment/Plan 1. Wellness examination (Z00.00: Encounter for general adult medical examination without abnormal findings) pt presents today for annual well exam . pt is doing well. will check labs today. pt states he has back issues and his hip is bone on bone but is not interested in surgery at this time. Ordered: gabapentin, 300 mg = 1 cap(s), Oral, TID, # 90 cap(s), Refills(s) 0, Pharmacy: [facility], 190, cm, 04/03/24 11:16:00 EDT, Height/Length Dosing, 124.4, kg, 04/03/24 11:16:00 EDT, Weight Dosing 2. Diabetes mellitus type I (E10.9: Type 1 diabetes mellitus without complications) pt states glucose in am ranges from 53-300. he is only eating 2 meals per day. Giving insulin then not eating until lunch. discussed eating 3 smaller meals and having snacks with protein in between to keep glucose more level. pt verbalizes understanding. discussed any josé miguel but insurance will not cover it. hGBA1C drawn in office today. may need to adjust medication. or refer to endocrinology. RTC 3 months Ordered: gabapentin, 300 mg = 1 cap(s), Oral, TID, # 90 cap(s), Refills(s) 0, Pharmacy: [facility], 190, cm, 04/03/24 11:16:00 EDT, Height/Length Dosing, 124.4, kg, 04/03/24 11:16:00 EDT, Weight Dosing CBC w/ Auto Diff Comprehensive Metabolic Panel HgbA1c Lipid Panel PSA Screen, Total TSH With T4fr Reflex 3. Hyperlipemia (E78.5: Hyperlipidemia, unspecified) will check lipids today Ordered: gabapentin, 300 mg = 1 cap(s), Oral, TID, # 90 cap(s), Refills(s) 0, Pharmacy: [facility], 190, cm, 04/03/24 11:16:00 EDT, Height/Length Dosing, 124.4, kg, 04/03/24 11:16:00 EDT, Weight Dosing CBC w/ Auto Diff Comprehensive Metabolic Panel Lipid Panel PSA Screen, Total TSH With T4fr Reflex 4. Hypothyroid (E03.9: Hypothyroidism, unspecified) TSH drawn today Ordered: gabapentin, 300 mg = 1 cap(s), Oral, TID, # 90 cap(s), Refills(s) 0, Pharmacy: [facility], 190, cm, 04/03/24 11:16:00 EDT, Height/Length Dosing, 124.4, kg, 04/03/24 11:16:00 EDT, Weight Dosing CBC w/ Auto Diff Comprehensive Metabolic Panel Lipid Panel PSA Screen, Total TSH With T4fr Reflex 5. Prostate cancer screening (Z12.5: Encounter for screening for malignant neoplasm of prostate) PSA today Ordered: gabapentin, 300 mg = 1 cap(s), Oral, TID, # 90 cap(s), Refills(s) 0, Pharmacy: [facility], 190, cm, 04/03/24 11:16:00 EDT, Height/Length Dosing, 124.4, kg, 04/03/24 11:16:00 EDT, Weight Dosing 6. Back pain (M54.9: Dorsalgia, unspecified) celebrex is not helping with the pain. will send in gabapentin Ordered: gabapentin, 300 mg = 1 cap(s), Oral, TID, # 90 cap(s), Refills(s) 0, Pharmacy: [facility], 190, cm, 04/03/24 11:16:00 EDT, Height/Length Dosing, 124.4, kg, 04/03/24 11:16:00 EDT, Weight Dosing 7. BMI 34.0-34.9,adult (Z68.34: Body mass index [BMI] 34.0-34.9, adult) bmi education complete Ordered: gabapentin, 300 mg = 1 cap(s), Oral, TID, # 90 cap(s), Refills(s) 0, Pharmacy: [facility], 190, cm, 04/03/24 11:16:00 EDT, Height/Length Dosing, 124.4, kg, 04/03/24 11:16:00 EDT, Weight Dosing CBC w/ Auto Diff Comprehensive Metabolic Panel Lipid Panel PSA Screen, Total TSH With T4fr Reflex 8. Obesity with serious comorbidity (E66.9: Obesity, unspecified) see above Ordered: gabapentin, 300 mg = 1 cap(s), Oral, TID, # 90 cap(s), Refills(s) 0, Pharmacy: [facility], 190, cm, 04/03/24 11:16:00 EDT, Height/Length Dosing, 124.4, kg, 04/03/24 11:16:00 EDT, Weight Dosing CBC w/ Auto Diff Comprehensive Metabolic Panel Lipid Panel PSA Screen, Total TSH With T4fr Reflex Orders: glyBURIDE, 5 mg = 1 tab(s), Oral, BID, X 90 day(s), # 180 tab(s), Refills(s) 3, Pharmacy: [facility], 190, cm, 12/10/23 1 (more content not included)... Normal [facility] Comment on above: Result Comment: Elec tronically Signed By: Ghislaine Pichardo\.br\Date and Time Signed: 04/03/24 11:50 EDT HEMATOLOGYOrdered By: SYSTEM SYSTEM on 04-03-2024 Basophils/100 WBC (Bld) 0.8 % Normal 0.0 - 2.0 % [facility] Basophils/Leukocytes Auto (Bld) [Pure # fraction] 0.0 E9/L Normal 0.0 - 0.2 E9/L [facility] Eosinophils (Bld) [#/Vol] 0.4 E9/L Normal 0.0 - 0.5 E9/L [facility] Eosinophils/100 WBC (Bld) 7.1 % Normal 0.0 - 8.0 % [facility] Erythrocyte distribution width (RBC) [Ratio] 13.5 % Normal 10.9 - 14.2 % [facility] Hematocrit (Bld) [Volume fraction] 36.0 % Low 37.7 - 49.0 % [facility] Hemoglobin (Bld) [Mass/Vol] 11.5 g/dL Low 13.5 - 17.5 gm/dL [facility] Lymphocytes (Bld) [#/Vol] 1.5 E9/L Normal 1.0 - 4.0 E9/L [facility] Lymphocytes/100 WBC (Bld) 26.8 % Normal 14.0 - 50.0 % [facility] MCH (RBC) [Entitic mass] 27.6 pg Normal 27.0 - 34.0 pg [facility] MCHC (RBC) [Mass/Vol] 31.8 g/dL Normal 31.4 - 36.0 gm/dL [facility] MCV (RBC) [Entitic vol] 86.6 fL Normal 80.0 - 100.0 fL [facility] Monocytes (Bld) [#/Vol] 0.5 E9/L Normal 0.2 - 1.0 E9/L [facility] Monocytes/100 WBC (Bld) 8.7 % Normal 4.0 - 14.0 % [facility] Neutrophils (Bld) [#/Vol] 3.3 E9/L Normal 2.0 - 7.5 E9/L [facility] Neutrophils/100 WBC (Bld) 56.6 % Normal 36.0 - 75.0 % [facility] Platelet 339.0 E9/L Normal 150.0 - 500.0 E9/L [facility] Platelet mean volume (Bld) [Entitic vol] 8.6 fL Normal 6.4 - 10.8 fL [facility] RBC (Bld) [#/Vol] 4.2 E12/L Low 4.3 - 5.9 E12/L [facility] WBC corrected for nucl RBC Auto (Bld) [#/Vol] 5.8 E9/L Normal 4.0 - 11.0 E9/L [facility] [id number] 04-03-2024 HbA1c (Bld) [Mass fraction] 7.3 % High <=5.9 [facility] Comment on above: Performed By: #### 2 472087, 32194396, 7328106, 79513548, 491617298, 5494517 #### [facility] [address] [place] [address] Lipid Panelon 04-03-2024 Cholesterol [Mass/Vol] 144 mg/dL Normal 120-200 [facility] Comment on above: Performed By: #### 2 891453, 53438385, 2173600, 11475662, 072404458, 3090926 #### [facility] [address] [place] [address] Cholesterol in HDL [Mass/Vol] 52 mg/dL Invalid Interpretation Code [facility] Comment on above: Result Comment: '>= 60 LOW RISK' '<= 40 HIGH RISK' Performed By: #### 2 040204, 74947016, 2636435, 17405176, 755335080, 9893856 #### [facility] [address] [place] [address] Cholesterol in LDL [Mass/Vol] 89 mg/dL Normal <=129 [facility] Comment on above: Performed By: #### 2 224502, 20807937, 9667793, 87302024, 633976747, 4836523 #### [facility] [address] [place] [address] Cholesterol in VLDL [Mass/Vol] 13 mg/dL Normal 7-40 [facility] Comment on above: Performed By: #### 2 792097, 18565562, 6822231, 52520952, 056448303, 2322342 #### [facility] [address] [place] [address] Triglyceride [Mass/Vol] 63 mg/dL Normal <=149 [facility] Comment on above: Performed By: #### 2 594980, 44347438, 9173098, 49208141, 150579933, 8953235 #### [facility] [address] [place] [address] PSA Screen, Totalon 04-03-20 24 Prostate specific Ag [Mass/Vol] 1.6 ng/mL Normal 0.1-3.5 [facility] Comment on above: Result Comment: The concentration of PSA determined by different manufacturers can vary due to differences in assay methods and reagent specificity. Values obtained from different assay methods cannot be used interchangeably. The methodology used for this result was chemiluminescence using [employer] PSA reagent. Performed By: #### 1 [id number] #### [facility] [address] [place] [address] TSH With T4fr Reflexon 04-03 TSH Qn 0.80 m[IU]/L Normal 0.34-5.60 [facility] Comment on above: Performed By: #### 2 030252, 48039480, 0358365, 75226395, 507802991, 8764109 #### [facility] [address] [place] [address] eGFRon 04-03-2024 eGFR 96 mL/min/1.73 m2 Normal >=59 [facility] Comment on above: Order Comment: Order added by Discern Expert. Performed By: #### 2 931380, 03461926, 0151489, 39510809, 237419730, 6663600 #### [facility] [address] [place] [address] Reminderson 12-13-2023 Reminders - From: Ghislaine Pichardo To: [facility] - Clinical; Sent: 12/11/2023 08:19:47 EST Show up: 12/11/2023 08:19:00 EST Subject: Ambulatory Reminder Due Date/Time: 12/12/2023 08:18:00 EST HGBA1C went from 8.3 to 8.1. I sent in 1.5mg Trulicity with refills. He will need to repeat HGBA1C in 3 months. He can schedule that as nurse visit. Results: Date Result Name Ind Value Ref Range 12/10/2023 11:33 Hgb A1C % ((H)) 8.1 % ( - <=5.9) LVM for patient to return call, please advise patient of message below Patient return call and information given and verbally understood. noted Normal [facility] US Abdomen Completeon 2023 US Abdomen Complete Exam Date/Time: 12/12/2023 09:46 EST Reason for Exam: R10.32;Abdominal pain Report IMPRESSION: NEGATIVE RIGHT UPPER QUADRANT ULTRASOUND. CLINICAL HISTORY: Abdominal pain, R10.32 COMPARISON: NONE. FINDINGS: Liver normal in size, shape, and echogenicity. No intrahepatic, and no extrahepatic ductal dilatation. Common duct measures 4 mm. Gallbladder contains no shadowing and no echogenic foci. No hydronephrosis. No gallbladder wall thickening. Limited imaging distal pancreatic head and proximal pancreatic body normal in size, shape, and echogenicity. Remainder of pancreas obscured overlying bowel gas. Ordering Provider: Ghislaine Zabala FINAL REPORT Dictated: 12/13/2023 2:19 pm Hudson Szymanski MD Signed (Electronic Signature): 12/13/2023 2:19 pm Signed by: Hudson Szymanski MD Transcribed by: ENRIQUE Technologist: CORWIN Normal [facility] Consent for Treatmenton 12-02 Consent for Treatment [id number] #[id number] Normal [facility] Ambulatory Visit Summaryon 0 12-10-2023 Ambulatory Visit Summary ARNOLDO GANT :1960 Visit Date:12/10/2023 Ambulatory Visit Instructions Your Diagnosis Diabetes mellitus type I BMI 34.0-34.9,adult Non-smoker Your Care Team Attending Physician - Ghislaine Pichardo Primary Care Physician - Ghislaine Pichardo This Is Your Medications List Misc Prescription (Misc DME Prescription) atorvastatin (atorvastatin 20 mg Tab) celecoxib (celecoxib 200 mg Cap) cyclobenzaprine (cyclobenzaprine 10 mg Tab) dulaglutide (dulaglutide 0.75 mg/0.5 mL subcutaneous solution) esomeprazole (esomeprazole 40 mg Cap-EC) glyBURIDE (glyBURIDE 5 mg Tab) insulin isophane (HumuLIN N 100 units/mL Injection-Insulin) levothyroxine (levothyroxine 175 mcg (0.175 mg) Tab) metoprolol (Metoprolol tartrate 50 mg Tab) naproxen (naproxen 500 mg oral enteric coated tablet) Procedures Performed Cardiac catheter, Colonoscopy, History of nasal sinus surgery, T and A (tonsillectomy and adenoidectomy) postoperative education. Discharge Vitals Heart Rate (Peripheral) 80 Respiratory Rate 16 Blood Pressure 130/84 Height 190 cm Height 75 in Weight 125.0 kg Weight 275 lb BMI 34.63 Medications What How Much When Instructions Changed dulaglutide (dulaglutide 0.75 mg/ 0.5 mL subcutaneous solution) 0.75 Milligram Subcutaneous Every week Duration: 90 Days Changed glyBURIDE (glyBURIDE 5 mg Tab) 1 Tablets By Mouth 2 times a day Duration: 90 Days Unchanged atorvastatin (atorvastatin 20 mg Tab) 1 Tablets By Mouth Every day Duration: 90 Days Unchanged celecoxib (celecoxib 200 mg Cap) 1 Capsules By Mouth 2 times a day Duration: 90 Days Unchanged cyclobenzaprine (cyclobenzaprine 10 mg Tab) See instructions 1 tab at bedtime Unchanged esomeprazole (esomeprazole 40 mg Cap-EC) 40 Milligram By Mouth Every day Duration: 90 Days Unchanged insulin isophane (HumuLIN N 100 units/ mL Injection-Insulin) 28 Units Subcutaneous 2 times a day provider increase dose to 28 units BID on HGBA1C 7.7 Unchanged levothyroxine (levothyroxine 175 mcg (0.175 mg) Tab) 1 Tablets By Mouth Every day Duration: 90 Days Unchanged metoprolol (Metoprolol tartrate 50 mg Tab) 1 Tablets By Mouth Every day Duration: 90 Days Unchanged Misc Prescription (Misc DME Prescription) See instructions BD insulin syringes 0.5ml, 29GX1/ 2 needles Use bid to inject insulin E10.8 Unchanged naproxen (naproxen 500 mg oral enteric coated tablet) 1 Tablets By Mouth 2 times a day Duration: 90 Days Allergies metFORMIN (Unknown) penicillin (Unknown) Problems Ongoing - Any problem that you are currently receiving treatment for. Degenerative disc disease, lumbar Diabetes mellitus type I GERD (gastroesophageal reflux disease) Hyperlipidemia Hypothyroid Induratio penis plastica Prostate cancer screening Shortness of breath Sinus tachycardia Stenosis of intervertebral foramina Tendonitis Weight gain Wellness examination Patient Survey You may receive a survey via text or e-mail asking about your office visit. Please share your experience with us by completing your survey. We appreciate your feedback and thank you for choosing us for your care. Normal [facility] CHEMISTRYOrdered By: Ollie rivero on 12-10-2023 HbA1c (Bld) [Mass fraction] 8.1 % High <=5.9% [facility] [employer] Family Medicine Office/Clini c Noteon 12-10-2023 Family Medicine Office/Clinic Note HPI Staff Arnoldo is a 62 year old male presenting Concerns: Pt states dulaglutide he was originally taking 0.75mg and then was switched to 1.5mg. The latest refill was sent in for 0.75 mg and he has only been taking the 0.75mg. Pt needs refills on Dulaglutide, glyburide, metoprolol, Levothyroxine, Atorvastatin, cyclobenzaprine, Celecoxib also needs rx sent in for One Touch Ultra, one touch test strips and syringes and needles. Pt states back in high school had stomach ulcers. The past 2 months started having intermittent sharp/aching pains LLQ, pt thought maybe it was due to drinking so he stopped drinking. From 11/28/23 to yesterday has only had 3 beers within this time. Didn't notice improvement when he slowed down on drinking. Does notice his stomach gurgling more the last 2 weeks. Pt does have bowel movement BID states it is diarrhea and soft stools started once this all started. Stool is brown. Pt has had a colonoscopy before he thinks 5 years ago and was normal and told to come back in 10 years. denies any nausea or vomiting. After Eating about an hour later LUQ will become harder and does have slight discomfort. History of Present Illness pt presents today c/o GI issues Review of Systems PHQ Score Initial Depression Screen Score: 0 SCORE ROS - Provider Constitutional: no fever, no chills, no sweats, no fatigue Respiratory: no shortness of breath, no cough, no orthopnea, no wheezing. Cardiovascular: no chest pain, no palpitations, no edema. Neurologic: no headache, no dizziness, no numbness, no weakness. GI: Sharp aching pain LLQ, after eating left upper quadrant gets hard for about an hour, gurgling Physical Exam Vitals & Measurements HR: 80(Peripheral) RR: 16 BP: 130/84 SpO2: 97% HT: 75 in HT: 190 cm WT: 125.0 kg WT: 275 lb BMI: 34.63 General: alert, no acute distress ENMT: oral mucosa moist, no pharyngeal erythema or exudate Cardiovascular: regular rate and rhythm, normal peripheral perfusion Respiratory: Lungs CTA, respirations non labored Extremities: no deformity, no trauma Neurological: oriented x 4, LOC appropriate for age, CN II-XII intact, motor strength equal & normal bilaterally, speech normal Assessment/Plan 1. Left lower quadrant pain (R10.32: Left lower quadrant pain) One hour after eating left upper quadrant gets hard. then he will start to experience left lower quadrant pain. denies nausea or vomiting. no fever or body aches. will order abdominal u/s as well as omeprazole and bentyl for when he gets the pain. will refer to GI. all questions answered. RTC 3 months for HGBA1C. all meds refilled Ordered: dicyclomine, 10 mg = 1 cap(s), Oral, QID, X 10 day(s), # 40 cap(s), Refills(s) 0, Pharmacy: [facility], 190, cm, 12/10/23 11:00:00 EST, Height/Length Dosing, 125, kg, 12/10/23 11:00:00 EST, Weight Dosing dulaglutide, 1.5 mg, SubCutaneous, qWeek, # 12 EA, Refills(s) 3, Pharmacy: [facility], 190, cm, 12/10/23 11:00:00 EST, Height/Length Dosing, 125, kg, 12/10/23 11:00:00 EST, Weight Dosing Misc Prescription, one touch ultra test strips, See Instructions, 100 EA, 4, check blood sugar 4 times per day, [facility], Supply, 190, cm, 12/10/23 11:00:00 EST, Height/Length Dosing, 125, kg, 12/10/23 11:00:00 EST, Weight Dosing Misc Prescription, One touch ultra glucose monitor, See Instructions, 1 EA, 0, Check blood sugar 4 times per day, [facility], Supply, 190, cm, 12/10/23 11:00:00 EST, Height/Length Dosing, 125, kg, 12/10/23 11:00:00 EST, Weight Dosing omeprazole, 40 mg = 1 cap(s), Oral, Daily, # 90 cap(s), Refills(s) 0, Pharmacy: [facility], 190, cm, 12/10/23 11:00:00 EST, Height/Length Dosing, 125, kg, 12/10/23 11:00:00 EST, Weight Dosing [facility] Internal Ambulatory Referral US Abdomen Complete 2. Change in stool (R19.5: Other fecal abnormalities) pt states the shape of his stool has changed as well as consistency. denies blood or dark tarry stools Ordered: dicyclomine, 10 mg = 1 cap(s), Oral, QID, X 10 day(s), # 40 cap(s), Refills(s) 0, Pharmacy: [facility], 190, cm, 12/10/23 11:00:00 EST, Height/Length Dosing, 125, kg, 12/10/23 11:00:00 EST, Weight Dosing dulaglutide, 1.5 mg, SubCutaneous, qWeek, # 12 EA, Refills(s) 3, Pharmacy: [facility], 190, cm, 12/10/23 11:00:00 EST, Height/Length Dosing, 125, kg, 12/10/23 11:00:00 EST, Weight Dosing Misc Prescription, one touch ultra test strips, See Instructions, 100 EA, 4, check blood sugar 4 times per day, [facility], Supply, 190, cm, 12/10/23 11:00:00 EST, Height/Length Dosing, 125, kg, 12/10/23 11:00:00 EST, Weight Dosing Misc Prescription, One touch ultra glucose monitor, See Instructions, 1 EA, 0, Check blood sugar 4 times per day, [facility], Supply, 190, cm, 12/10/23 11:00:00 EST, Height/Length Dosing, 125, kg, 12/10/23 11:00:00 EST, Weight Dosing omeprazole, 40 mg = 1 cap(s), Oral, Daily, # 90 cap(s), Refills(s) 0, Pharmacy: [facility], 190, cm, 12/10/23 11:00:00 ES (more content not included)... Normal [facility] Comment on above: Result Comment: Elec tronically Signed By: Ghislaine Pichardo\.br\Date and Time Signed: 12/10/23 13:31 EST [id number] 12-10-2023 HbA1c (Bld) [Mass fraction] 8.1 % High <=5.9 [facility] Comment on above: Performed By: #### [id number] #### [facility] [address] [place] [address] CHEMISTRYOrdered By: Ruth Ann Hummel on 08-22-2023 HbA1c (Bld) [Mass fraction] 8.3 % High <=5.9% [facility] Chem[employer] COVID + FLU Quick Testingon 02-08-2023 SARS-CoV-2 (COVID-19) RNA EVAN+probe Ql (Unsp spec) Positive [employer] Other COVID + FLU Quick Testing Negative [employer] Other CT ABD/PELVIS WO CONon 08-12 CT ABD/PELVIS WO CON EXAM: CT SCAN OF TH E ABDOMEN AND PELVIS WITHOUT IV CONTRAST DATE OF EXAM: 08/11/2022 10:45 PM EDT HISTORY: UNSPECIFIED ABDOMINAL PAIN in a 61-year-old male COMPARISON: 04/04/2020 CT abdomen pelvis with contrast TECHNIQUE: CT examination of the abdomen and pelvis with sagittal and coronal reformations was performed without intravenous contrast. CT dose lowering techniques were used, to include: automated exposure control, adjustment for patient size, and/or use of iterative reconstruction. CONTRAST: None. Note: The exam is limited because some types of pathology may not be adequately demonstrated due to lack of contrast enhancement. FINDINGS: Lower Chest: Normal Free Air: None. Liver: Normal Gallbladder: Normal allowing for minimal sludge. Common Bile Duct: Normal Pancreas: Pancreatic head well visualized. 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 Right Ureter: Portions of the right ureter which are visualized measure within normal. Left Kidney: Normal. Left Ureter: Portions of the left ureter which are visualized measure within normal limits. GI Tract: Stomach: Normal Small Bowel: Normal Appendix: Normal on coronal image 48 Large Bowel: Normal Mesentery/Peritoneum : Subcentimeter lymph nodes in the mesentery. Vasculature: Normal Lymph Nodes: Normal Abdominal Wall: There is some subcutaneous air demonstrated within the abdominal wall may be from an injection. Bladder: Bladder is fully distended. Reproductive: Prostate measures within normal with calcifications Musculoskeletal: Multilevel degenerative disc disease. Free Fluid: None. IMPRESSION: No acute abdominal or pelvic pathology Electronically authenticated by: FABIOLA AL Date: 2022-08-12 00:27 Normal [facility] AMYLASEon 08-11-2022 Amylase [Catalytic activity/Vol] 44 U/L Normal 25-115 [facility] Comment on above: Performed By: #### D ATPSA, DATTSH, DATBMP #### [facility] [address] [address] [address] Jose De Jesus Issa CBC AUTO DIFFon 08-11-2022 BASO # 0.0 103/ul Normal 0.0-0.1 [facility] Comment on above: Performed By: #### D ATPSA, DATTSH, DATBMP #### [facility] [address] [address] [address] Jose De Jesus Issa Basophils/100 WBC (Bld) 0.5 % Normal 0.2-2.0 [facility] Comment on above: Performed By: #### D ATPSA, DATTSH, DATBMP #### [facility] [address] [address] [address] Jose De Jesus Issa EO # 0.1 103/ul Normal 0.0-0.7 [facility] Comment on above: Performed By: #### D ATPSA, DATTSH, DATBMP #### [facility] [address] [place] [address] Dr. Jose De Jesus Issa Eosinophils/100 WBC (Bld) 1.2 % Normal 0.9-7.0 [facility] Comment on above: Performed By: #### D ATPSA, DATTSH, DATBMP #### [facility] [address] [place] [address] Dr. Jose De Jesus Issa Erythrocyte distribution width (RBC) [Ratio] 13.1 % Normal 11.0-15.0 [facility] Comment on above: Performed By: #### D ATPSA, DATTSH, DATBMP #### [facility] [address] [place] [address] Dr. Jose De Jesus Issa Hematocrit (Bld) [Volume fraction] 43.2 % Normal 42.0-54.0 [facility] Comment on above: Performed By: #### D ATPSA, DATTSH, DATBMP #### [facility] [address] [place] [address] Dr. Jose De Jesus Issa Hemoglobin (Bld) [Mass/Vol] 14.5 g/dL Normal 14.0-18.0 [facility] Comment on above: Performed By: #### D ATPSA, DATTSH, DATBMP #### [facility] [address] [place] [address] Dr. Jose De Jesus Issa IG # 0.02 10e3/ul Normal 0.00-0.03 [facility] Comment on above: Performed By: #### D ATPSA, DATTSH, DATBMP #### [facility] [address] [place] [address] Dr. Jose De Jesus Issa IG % 0.3 % Normal 0.0-0.5 [facility] Comment on above: Performed By: #### D ATPSA, DATTSH, DATBMP #### [facility] [address] [place] [address] Dr. Jose De Jesus Issa LYMPH # 1.4 103/ul Normal 1.2-3.8 [facility] Comment on above: Performed By: #### D ATPSA, DATTSH, DATBMP #### [facility] [address] [place] [address] Dr. Jose De Jesus Issa Lymphocytes/100 WBC (Bld) 19.0 % Critically low 20.5-60.0 [facility] Comment on above: Performed By: #### D ATPSA, DATTSH, DATBMP #### [facility] [address] [place] [address] Dr. Jose De Jesus Issa MANUAL DIFF REQ NO Normal [facility] Comment on above: Performed By: #### D ATPSA, DATTSH, DATBMP #### [facility] [address] [place] [address] Dr. Jose De Jesus Issa MCH (RBC) [Entitic mass] 30.2 pg Normal 25.9-34.0 [facility] Comment on above: Performed By: #### D ATPSA, DATTSH, DATBMP #### [facility] [address] [place] [address] Dr. Jose De Jesus Issa MCHC (RBC) [Mass/Vol] 33.6 g/dL Normal 29.9-35.2 [facility] Comment on above: Performed By: #### D ATPSA, DATTSH, DATBMP #### [facility] [address] [place] [address] Dr. Jose De Jesus Issa MCV (RBC) [Entitic vol] 90.0 fL Normal 80.0-94.0 [facility] Comment on above: Performed By: #### D ATPSA, DATTSH, DATBMP #### [facility] [address] [place] [address] Dr. Jose De Jesus Issa MONO # 0.6 103/ul Normal 0.3-0.8 [facility] Comment on above: Performed By: #### D ATPSA, DATTSH, DATBMP #### [facility] [address] [place] [address] Dr. Jose De Jesus Issa Monocytes/100 WBC (Bld) 7.8 % Normal 1.7-12.0 [facility] Comment on above: Performed By: #### D ATPSA, DATTSH, DATBMP #### [facility] [address] [address] [address] Jose De Jesus Issa NEUT # 5.3 103/ul Normal 1.4-6.5 [facility] Comment on above: Performed By: #### D ATPSA, DATTSH, DATBMP #### [facility] [address] [place] [address] Dr. Jose De Jesus Issa Neutrophils/100 WBC (Bld) 71.2 % Normal 43.0-75.0 [facility] Comment on above: Performed By: #### D ATPSA, DATTSH, DATBMP #### [facility] [address] [place] [address] Dr. Jose De Jesus Issa Platelet mean volume (Bld) [Entitic vol] 10.0 fL Normal 9.5-13.5 [facility] Comment on above: Performed By: #### D ATPSA, DATTSH, DATBMP #### [facility] [address] [place] [address] Dr. Jose De Jesus Issa PLT 307 103/ul Normal 150-450 [facility] Comment on above: Performed By: #### D ATPSA, DATTSH, DATBMP #### [facility] [address] [place] [address] Dr. Jose De Jesus Issa RBC 4.80 106/ul Normal 4.70-6.10 [facility] Comment on above: Performed By: #### D ATPSA, DATTSH, DATBMP #### [facility] [address] [place] [address] Dr. Jose De Jesus Issa WBC 7.5 103/ul Normal 4.0-11.0 [facility] Comment on above: Performed By: #### D ATPSA, DATTSH, DATBMP #### [facility] [address] [place] [address] Dr. Jose De Jesus Issa Covid-19 PCR (CVDTB)on 08-02 SARS-CoV-2 (COVID-19) RNA EVAN+probe Ql (Unsp spec) Not detected Normal NOT DETECTED [facility] Comment on above: Result Comment: When diagnostic testing is negative, the possibility of a false negative should be considered in the context of a patient's recent exposures and the presence of clinical signs and symptoms consistent with SARS-CoV-2. This test is not yet approved or cleared by the [place] FDA. When there are no FDA-approved or cleared tests available, and other criteria are met, FDA can make tests available under an emergency access mechanism called an Emergency Use Authorization (EUA). The EUA for this test is supported by the [employer] of Health and Human Service's declaration that circumstances exist to justify the emergency use of in vitro diagnostics for the detection and/or diagnosis of the virus that causes COVID-19. This EUA will remain in effect for the duration of the COVID-19 declaration justifying emergency of IVDs, unless it is terminated or revoked by the FDA (after which the test may no longer be used). Performed By: #### C VDTBH #### [facility] [address] [place] [address] Dr. Jose De Jesus Issa D-DIMERon 08-11-2022 D-DIMER 0.46 mg/L FEU Normal <=0.59 [facility] Comment on above: Performed By: #### D ATPSA, DATTSH, DATBMP #### [facility] [address] [place] [address] Dr. Jose De Jesus Issa D-DIMER COMMENTS SEE BELOW Normal [facility] Comment on above: Result Comment: Incr eases in D-Dimer concentration observed with thromboembolic events can be variable due to localization, size, and age of the thrombus. Therefore, a thromboembolic event cannot be diagnosed with certainty on the basis of the reference range. D-Dimers may also be elevated for a variety of disorders including: advanced age, , coronary disease, cancer, liver disease, infection, inflammation, hematoma, DIC, trauma, post-surgery, diabetes, thrombolytic or anticoagulant therapy, stress, and generalized hospitalization. Performed By: #### D ATPSA, DATTSH, DATBMP #### [facility] [address] [place] [address] Dr. Jose De Jesus Issa ETHANOL (BLD ALC)on 08-11-20 22 ALC NOTE NOTE: 80 mg/dl is the legal limit for a blood alcohol level Normal [facility] Comment on above: Performed By: #### E TH #### [facility] [address] [place] [address] Dr. Jose De Jesus Issa Ethanol [Mass/Vol] mg/dL Normal [facility] Comment on above: Performed By: #### E TH #### [facility] [address] [place] [address] Dr. Jose De Jesus Issa POINT OF CARE GLUCOSEon 08-02 0 Glucose [Mass/Vol] 210 mg/dL Critically high 74-106 [facility] Comment on above: Performed By: #### P OCGLUC #### [facility] [address] [place] [address] Dr. Jose De Jesus Issa PROF 14(COMP METB)on 022 Albumin [Mass/Vol] 4.0 g/dL Normal 3.4-5.0 [facility] Comment on above: Performed By: #### C MP #### [facility] [address] [place] [address] Dr. Jose De Jesus Issa Albumin/Globulin [Mass ratio] 1.1 {ratio} Normal [facility] Comment on above: Performed By: #### C MP #### [facility] [address] [place] [address] Dr. Jose De Jesus Issa ALP [Catalytic activity/Vol] 76 U/L Normal 46-116 [facility] Comment on above: Performed By: #### C MP #### [facility] [address] [place] [address] Dr. Jose De Jesus Issa ALT [Catalytic activity/Vol] 30 U/L Normal 16-63 [facility] Comment on above: Performed By: #### C MP #### [facility] [address] [place] [address] Dr. Jose De Jesus Issa Anion gap [Moles/Vol] 15.1 mmol/L Normal [facility] Comment on above: Performed By: #### C MP #### [facility] [address] [address] [address] Jose De Jesus Issa AST [Catalytic activity/Vol] 19 U/L Normal 15-37 [facility] Comment on above: Performed By: #### C MP #### [facility] [address] [address] [address] Jose De Jesus Issa Bilirubin [Mass/Vol] 0.9 mg/dL Normal 0.2-1.0 [facility] Comment on above: Performed By: #### C MP #### [facility] [address] [address] [address] Jose De Jesus Issa Calcium [Mass/Vol] 8.8 mg/dL Normal 8.5-10.1 [facility] Comment on above: Performed By: #### C MP #### [facility] [address] [place] [address] Dr. Jose De Jesus Issa Chloride [Moles/Vol] 99 mmol/L Normal 98-107 [facility] Comment on above: Performed By: #### C MP #### [facility] [address] [place] [address] Dr. Jose De Jesus Issa CO2 [Moles/Vol] 25.0 mmol/L Normal 21.0-32.0 [facility] [facility] Comment on above: Performed By: #### C MP #### [facility] [address] [place] [address] Dr. Jose De Jesus Issa Creatinine [Mass/Vol] 1.11 mg/dL Normal 0.70-1.30 [facility] Comment on above: Performed By: #### C MP #### [facility] [address] [place] [address] Dr. Jose De Jesus Issa EGFR-AF LIBYAN >60 Normal >=60 [facility] Comment on above: Performed By: #### C MP #### [facility] [address] [place] [address] Dr. Jose De Jesus Issa EGFR-NON AF LIBYAN >60 Normal >=60 [facility] Comment on above: Performed By: #### C MP #### [facility] [address] [place] [address] Dr. Jose De Jesus Issa Globulin (S) [Mass/Vol] 3.5 g/dL Normal [facility] Comment on above: Performed By: #### C MP #### [facility] [address] [address] [address] Jose De Jesus Issa Glucose [Mass/Vol] 243 mg/dL Critically high 74-106 T [facility] Comment on above: Performed By: #### C MP #### [facility] [address] [address] [address] Jose De Jesus Issa Potassium [Moles/Vol] 4.1 mmol/L Normal 3.5-5.1 [facility] Comment on above: Performed By: #### C MP #### [facility] [address] [address] [address] Jose De Jesus Issa Protein [Mass/Vol] 7.5 g/dL Normal 6.4-8.2 [facility] Comment on above: Performed By: #### C MP #### [facility] [address] [address] [address] Jose De Jesus Issa Sodium [Moles/Vol] 135 mmol/L Critically low 136-145 Th [facility] Comment on above: Performed By: #### C MP #### [facility] [address] [place] [address] Dr. Jose De Jesus Issa Urea nitrogen [Mass/Vol] 13.0 mg/dL Normal 7.0-18.0 [facility] Comment on above: Performed By: #### C MP #### [facility] [address] [place] [address] Dr. Jose De Jesus Issa Urea nitrogen/Creatinine [Mass ratio] 11.7 mg/mg Normal [facility] Comment on above: Performed By: #### C MP #### [facility] [address] [place] [address] Dr. Jose De Jesus Issa TROPONIN, HIGH SENSITIVITYon 08-11-2022 HSTROP 7.1 pg/mL Normal 4.0-76.1 [facility] Comment on above: Result Comment: CUT- OFF POINTS HAVE BEEN ESTABLISHED BASED ON THE FOURTH UNIVERSAL DEFINITIONS OF MYOCARDIAL INFARCTION. THE UPPER REFERENCE LIMIT (URL) OF TROPONIN, DEFINED THE 99TH PERCENTILE OF cTnI DISTRIBUTION IN A REFERENCE POPULATION, HAS BEEN CONFIRMED THE DECISION THRESHOLD FOR UT DIAGNOSIS. Performed By: #### H STROPN #### [facility] [address] [place] [address] Dr. Jose De Jesus Issa XR CHEST 1 Von 08-11-2022 XR CHEST 1 V EXAMINATION: XR CHEST 1 V HISTORY: Chest pain COMPARISON: Portable chest 04/04/2020 TECHNIQUE: Portable chest FINDINGS: The lung parenchyma is free of consolidation or infiltrate. No pneumothorax or pleural effusion. The cardiac, mediastinal and hilar contours are normal. The visualized osseous structures exhibit no gross abnormality. IMPRESSION: No acute cardiopulmonary abnormality. Electronically authenticated by: ARNOLDO THOMAS Date: 2022-08-11 21:46 Normal The [facility] FREE T3on 03-28-2022 FREE T3 2.59 pg/mlL Normal 2.18-3.98 [facility] Comment on above: Performed By: #### F T3 #### [facility] [address] [place] [address] Dr. Jose De Jesus Issa FREE T4on 03-28-2022 Free T4 [Mass/Vol] 1.11 ng/dL Normal 0.76-1.46 [facility] Comment on above: Performed By: #### F T4 #### [facility] [address] [place] [address] Dr. Jose De Jesus Issa CBC AUTO DIFFon 03-21-2022 BASO # 0.1 103/ul Normal 0.0-0.1 [facility] Comment on above: Performed By: #### D ATPSA, DATTSH, DATBMP #### [facility] [address] [place] [address] Dr. Jose De Jesus Issa Basophils/100 WBC (Bld) 0.8 % Normal 0.2-2.0 [facility] Comment on above: Performed By: #### D ATPSA, DATTSH, DATBMP #### [facility] [address] [place] [address] Dr. Jose De Jesus Issa EO # 0.5 103/ul Normal 0.0-0.7 [facility] Comment on above: Performed By: #### D ATPSA, DATTSH, DATBMP #### [facility] [address] [place] [address] Dr. Jose De Jesus Issa Eosinophils/100 WBC (Bld) 8.0 % Critically high 0.9-7.0 [facility] Comment on above: Performed By: #### D ATPSA, DATTSH, DATBMP #### [facility] [address] [place] [address] Dr. Jose De Jesus Issa Erythrocyte distribution width (RBC) [Ratio] 12.7 % Normal 11.0-15.0 [facility] Comment on above: Performed By: #### D ATPSA, DATTSH, DATBMP #### [facility] [address] [place] [address] Dr. Jose De Jesus Issa Hematocrit (Bld) [Volume fraction] 46.7 % Normal 42.0-54.0 [facility] Comment on above: Performed By: #### D ATPSA, DATTSH, DATBMP #### [facility] [address] [place] [address] Dr. Jose De Jesus Issa Hemoglobin (Bld) [Mass/Vol] 14.7 g/dL Normal 14.0-18.0 [facility] Comment on above: Performed By: #### D ATPSA, DATTSH, DATBMP #### [facility] [address] [place] [address] Dr. Jose De Jesus Issa IG # 0.01 10e3/ul Normal 0.00-0.03 [facility] Comment on above: Performed By: #### D ATPSA, DATTSH, DATBMP #### [facility] [address] [place] [address] Dr. Jose De Jesus sIsa IG % 0.2 % Normal 0.0-0.5 [facility] Comment on above: Performed By: #### D ATPSA, DATTSH, DATBMP #### [facility] [address] [place] [address] Dr. Jose De Jesus Issa LYMPH # 2.7 103/ul Normal 1.2-3.8 [facility] Comment on above: Performed By: #### D ATPSA, DATTSH, DATBMP #### [facility] [address] [place] [address] Dr. Jose De Jesus Issa Lymphocytes/100 WBC (Bld) 40.9 % Normal 20.5-60.0 [facility] Comment on above: Performed By: #### D ATPSA, DATTSH, DATBMP #### [facility] [address] [place] [address] Dr. Jose De Jesus Issa MCH (RBC) [Entitic mass] 29.8 pg Normal 25.9-34.0 [facility] Comment on above: Performed By: #### D ATPSA, DATTSH, DATBMP #### [facility] [address] [place] [address] Dr. Jose De Jesus Issa MCHC (RBC) [Mass/Vol] 31.5 g/dL Normal 29.9-35.2 [facility] Comment on above: Performed By: #### D ATPSA, DATTSH, DATBMP #### [facility] [address] [place] [address] Dr. Jose De Jesus Issa MCV (RBC) [Entitic vol] 94.7 fL Critically high 80.0-94.0 [facility] Comment on above: Performed By: #### D ATPSA, DATTSH, DATBMP #### [facility] [address] [place] [address] Dr. Jose De Jesus Issa MONO # 0.5 103/ul Normal 0.3-0.8 [facility] Comment on above: Performed By: #### D ATPSA, DATTSH, DATBMP #### [facility] [address] [place] [address] Dr. Jose De Jesus Issa Monocytes/100 WBC (Bld) 6.9 % Normal 1.7-12.0 [facility] Comment on above: Performed By: #### D ATPSA, DATTSH, DATBMP #### [facility] [address] [place] [address] Dr. Jose De Jesus Issa NEUT # 2.8 103/ul Normal 1.4-6.5 [facility] Comment on above: Performed By: #### D ATPSA, DATTSH, DATBMP #### [facility] [address] [address] [address] Jose De Jesus Issa Neutrophils/100 WBC (Bld) 43.2 % Normal 43.0-75.0 [facility] Comment on above: Performed By: #### D ATPSA, DATTSH, DATBMP #### [facility] [address] [place] [address] Dr. Jose De Jesus Issa Platelet mean volume (Bld) [Entitic vol] 10.2 fL Normal 9.5-13.5 [facility] Comment on above: Performed By: #### D ATPSA, DATTSH, DATBMP #### [facility] [address] [place] [address] Dr. Jose De Jesus Issa PLT 347 103/ul Normal 150-450 [facility] Comment on above: Performed By: #### D ATPSA, DATTSH, DATBMP #### [facility] [address] [place] [address] Dr. Jose De Jesus Issa RBC 4.93 106/ul Normal 4.70-6.10 [facility] Comment on above: Performed By: #### D ATPSA, DATTSH, DATBMP #### [facility] [address] [place] [address] Dr. Jose De Jesus Issa WBC 6.5 103/ul Normal 4.0-11.0 [facility] Comment on above: Performed By: #### D ATPSA, DATTSH, DATBMP #### [facility] [address] [place] [address] Dr. Jose De Jesus Issa ADIS - TSHon 03-21-2022 TSH 6.766 uIU/mL Critically high 0.470-4.680 [facility] Comment on above: Performed By: #### D ATPSA, DATTSH, DATBMP #### [facility] [address] [place] [address] Dr. Jose De Jesus Issa TSH RANGE SEE BELOW Normal The [facility] Comment on above: Result Comment: <0.3 4 UIU/ml HYPERTHYROID 0.34-5.60 UIU/ml EUTHYROID >5.60 UIU/ml HYPOTHYROID Performed By: #### D ATPSA, DATTSH, DATBMP #### [facility] [address] [place] [address] Dr. Jose De Jesus Issa ADIS- BMP WITH LIPIDon 2021 Anion gap [Moles/Vol] 10.7 mmol/L Normal Th e [facility] Comment on above: Performed By: #### D ATPSA, DATTSH, DATBMP #### [facility] [address] [place] [address] Dr. Jose De Jesus Issa Calcium [Mass/Vol] 8.7 mg/dL Normal 8.5-10.1 [facility] Comment on above: Performed By: #### D ATPSA, DATTSH, DATBMP #### [facility] [address] [place] [address] Dr. Jose De Jesus Issa Chloride [Moles/Vol] 101 mmol/L Normal 98-107 [facility] Comment on above: Performed By: #### D ATPSA, DATTSH, DATBMP #### [facility] [address] [place] [address] Dr. Jose De Jesus Issa Cholesterol [Mass/Vol] 223 mg/dL Critically high <=200 [facility] Comment on above: Performed By: #### D ATPSA, DATTSH, DATBMP #### [facility] [address] [place] [address] Dr. Jose De Jesus Issa Cholesterol in HDL [Mass/Vol] 72 mg/dL Critically high 40-60 [facility] Comment on above: Performed By: #### D ATPSA, DATTSH, DATBMP #### [facility] [address] [place] [address] Dr. Jose De Jesus Issa Cholesterol in LDL [Mass/Vol] 133.2 mg/dL Normal [facility] Comment on above: Performed By: #### D ATPSA, DATTSH, DATBMP #### [facility] [address] [place] [address] Dr. Jose De Jesus Issa CO2 [Moles/Vol] 29.7 mmol/L Normal 22.0-30.0 [facility] Comment on above: Performed By: #### D ATPSA, DATTSH, DATBMP #### [facility] [address] [address] [address] Jose De Jesus Issa Creatinine [Mass/Vol] 0.96 mg/dL Normal 0.66-1.25 [facility] Comment on above: Performed By: #### D ATPSA, DATTSH, DATBMP #### [facility] [address] [address] [address] Jose De Jesus Issa EGFR-AF LIBYAN >60 Normal >=60 [facility] Comment on above: Performed By: #### D ATPSA, DATTSH, DATBMP #### [facility] [address] [address] [address] Jose De Jesus Issa EGFR-NON AF LIBYAN >60 Normal >=60 [facility] Comment on above: Performed By: #### D ATPSA, DATTSH, DATBMP #### [facility] [address] [address] [address] Jose De Jesus Issa Glucose [Mass/Vol] 154 mg/dL Critically high 74-106 T [facility] Comment on above: Performed By: #### D ATPSA, DATTSH, DATBMP #### [facility] [address] [address] [address] Jose De Jesus Issa HDL NORMAL > or = 60 mg/dl - LOW CARDIOVASCULAR RISK <40 mg/dl - HIGH CARDIOVASCULAR RISK Normal [facility] Comment on above: Performed By: #### D ATPSA, DATTSH, DATBMP #### [facility] [address] [address] [address] Jose De Jesus Issa LDL CALC NORMAL SEE BELOW Normal [facility] Comment on above: Result Comment: <100 mg/dl OPTIMAL 100 - 129 mg/dl NEAR OR ABOVE OPTIMAL 130 - 159 mg/dl BORDERLINE HIGH 160 - 189 mg/dl HIGH >190 mg/dl VERY HIGH Performed By: #### D ATPSA, DATTSH, DATBMP #### [facility] [address] [address] [address] Jose De Jesus Issa Potassium [Moles/Vol] 4.4 mmol/L Normal 3.4-5.0 [facility] Comment on above: Performed By: #### D ATPSA, DATTSH, DATBMP #### [facility] [address] [address] [address] Jose De Jesus Issa Sodium [Moles/Vol] 137 mmol/L Normal 137-145 [facility] Comment on above: Performed By: #### D ATPSA, DATTSH, DATBMP #### [facility] [address] [address] [address] Jose De Jesus Issa Triglyceride [Mass/Vol] 89 mg/dL Normal <=150 [facility] Comment on above: Performed By: #### D ATPSA, DATTSH, DATBMP #### [facility] [address] [address] [address] Jose De Jesus Issa Urea nitrogen [Mass/Vol] 16.0 mg/dL Normal 7.0-18.0 [facility] Comment on above: Performed By: #### D ATPSA, DATTSH, DATBMP #### [facility] [address] [address] [address] Jose De Jesus Issa Urea nitrogen/Creatinine [Mass ratio] 16.7 mg/mg Normal [facility] Comment on above: Performed By: #### D ATPSA, DATTSH, DATBMP #### [facility] [address] [address] [address] Jose De Jesus Issa VLDL CALC 17.8 mg/dL Normal [facility] Comment on above: Performed By: #### D ATPSA, DATTSH, DATBMP #### [facility] [address] [address] [address] Jose De Jesus Issa GLYCOHEMOGLOBIN A1Con 2021 ADA RECOMMENDATION ADA THERAPEUTIC TARGET 6.0 - 7.0 ACTION SUGGESTED > 7.0 Normal [facility] Comment on above: Performed By: #### D ATPSA, DATTSH, DATBMP #### [facility] [address] [place] [address] Dr. Jose De Jesus Issa Glucose [Mass/Vol] 174 mg/dL Normal [facility] Comment on above: Performed By: #### D ATPSA, DATTSH, DATBMP #### [facility] [address] [address] [address] Jose De Jesus Issa HbA1c (Bld) [Mass fraction] 7.7 % Critically high <=6.0 The [facility] Comment on above: Performed By: #### D ATPSA, DATTSH, DATBMP #### [facility] [address] [address] [address] Jose De Jesus Issa CNCOon 01-14-2020 CNCO Letter Text Normal [facility] Vital Signs Date Time Vital Sign Value Performing Clinician Facility 01-13-2025 14:06-0500 Body height 190.5 cm Code Rebel DO Work Phone: [facility] [address] 01-13-2025 14:06-0500 Body mass index (BMI) [Ratio] 33.25 kg/m2 Arnoldo Pocos DO Work Phone: [facility] [address] 01-13-2025 14:06-0500 Body weight 120.66 kg Arnoldo Pocos DO Work Phone: [facility] [address] 02-08-2023 09:25-0500 Body height 190.5 cm Steph [employer] Other [employer] Other 02-08-2023 09:25-0500 Body mass index (BMI) [Ratio] 32.49 kg/m2 Steph Pa Other [employer] Other 02-08-2023 09:25-0500 Body temperature 96.7 [degF] Steph Pa Other [employer] Other 02-08-2023 09:25-0500 Body weight 117.94 kg Steph Pa Other [employer] Other 02-08-2023 09:25-0500 Respiratory rate 18 /min Steph Pa Other [employer] Other 02-08-2023 09:25-0500 SaO2% (BldA) [Mass fraction] 96 % Steph Pa Other [employer] Other Encounters Encounter Date Encounter Type Care Provider Facility Start: 12-30-2025 ambulatory DIE CASTER Ghislaine L Charline Facil ity:[facility] Start: 03-25-2025 ambulatory Teagan ZeusDariela Puri Facyusuf lity:[facility] Start: 02-18-2025 End: 02-19-2025 Lab Drop off Ghislaine L [facility]line [facility] Start: 02-18-2025 End: 02-19-2025 ambulatory Ghislaine L Charline Facility:[facility] Start: 02-04-2025 End: 02-04-2025 Bamboo flowsheet Ines Astudillo PT [facility] Start: 02-04-2025 End: 02-04-2025 Bamboo flowsheet Ines Astudillo PT [facility] Start: 02-04-2025 End: 02-04-2025 ambulatory Ines Astudillo PT [facility] Comment on above: Left hip pain (Prima ry Dx); Primary osteoarthritis of left hip; Lumbar spondylosis; Discogenic syndrome, lumbar; Left hip impingement syndrome Start: 02-01-2025 End: 02-01-2025 Bamboo flowsheet Ines Astudillo PT [facility] Start: 02-01-2025 End: 02-01-2025 Bamboo flowsheet Ines Astudillo PT [facility] Start: 02-01-2025 End: 02-01-2025 ambulatory Ines Astudillo PT [facility] Comment on above: Left hip pain (Prima ry Dx); Primary osteoarthritis of left hip; Lumbar spondylosis; Discogenic syndrome, lumbar; Left hip impingement syndrome Start: 01-28-2025 End: 01-28-2025 Bamboo flowsheet Ines Astudillo PT [facility] Start: 01-28-2025 End: 01-28-2025 Bamboo flowsheet Ines Astudillo PT [facility] Start: 01-28-2025 End: 01-28-2025 ambulatory Ines Astudillo PT [facility] Comment on above: Left hip pain (Prima ry Dx); Primary osteoarthritis of left hip; Lumbar spondylosis; Discogenic syndrome, lumbar; Left hip impingement syndrome Start: 01-26-2025 End: 01-26-2025 Telephone encounter Daiana Valentino [facility] Comment on above: CX PT today Start: 01-21-2025 End: 01-21-2025 Bamboo flowsheet Ines Baudilio PT [facility] Start: 01-21-2025 End: 01-21-2025 Bamboo flowsheet Ines Astudillo PT [facility] Start: 01-21-2025 End: 01-21-2025 ambulatory Ines Astudillo PT [facility] Comment on above: Left hip pain (Prima ry Dx); Primary osteoarthritis of left hip; Lumbar spondylosis; Discogenic syndrome, lumbar; Left hip impingement syndrome Start: 01-18-2025 End: 01-18-2025 Bamboo flowsheet Daiana Valentino [facility] Start: 01-18-2025 End: 01-18-2025 Bamboo flowsheet Daiana Valentino [facility] Start: 01-18-2025 End: 01-18-2025 ambulatory Daiana Valentino [facility] Comment on above: Left hip pain (Prima ry Dx); Primary osteoarthritis of left hip; Lumbar spondylosis; Discogenic syndrome, lumbar; Left hip impingement syndrome Start: 01-14-2025 End: 01-14-2025 ambulatory Ines Baudilio PT [facility] Comment on above: Lumbar spondylosis ( Primary Dx); Left hip pain; Primary osteoarthritis of left hip; Discogenic syndrome, lumbar; Left hip impingement syndrome Start: 01-13-2025 End: 01-13-2025 Patient encounter procedure Arnoldo Mcdermott DO Work Phone: [facility] Comment on above: Left hip pain (Prima ry Dx); Primary osteoarthritis of left hip; Lumbar spondylosis; Discogenic syndrome, lumbar; Left hip impingement syndrome Start: 01-13-2025 End: 01-13-2025 ambulatory ARNOLDO MCDERMOTT Not Available Start: 01-13-2025 End: 01-13-2025 ambulatory ARNOLDO Schulz POCOS Not Available Start: 01-07-2025 End: 01-07-2025 ambulatory EVY POCOS Not Available Start: 12-30-2024 End: 12-30-2024 Lab Drop off Ghislaine L Charline [facility] Start: 12-30-2024 End: 12-30-2024 ambulatory DIE CASTER Ghislaine L Charline Facility:[facility] Start: 10-16-2024 End: 10-16-2024 ambulatory Ghislaine L Charline Facility:[facility] Start: 10-16-2024 End: 10-16-2024 Lab Drop off Ghislaine L Charline [facility] Start: 10-16-2024 End: 10-16-2024 ambulatory Ghislaine L Charline Facility:[facility] Start: 04-03-2024 End: 04-03-2024 Lab Drop off Ghislaine L Charline [facility] Start: 04-03-2024 End: 04-03-2024 ambulatory Ghislaine L Charline Facility:[facility] Start: 03-10-2024 ambulatory Ghislaine L Charline Facility: [facility] Start: 02-17-2024 End: 02-17-2024 ambulatory Perea Talal Sarmini Facility:[facility] Start: 02-17-2024 End: 02-17-2024 Patient encounter procedure Perea Talal Sarmini [facility] Start: 12-12-2023 End: 12-12-2023 ambulatory Ghislaine L Charline Facility:[facility] Start: 12-11-2023 ambulatory [facility] Start: 12-10-2023 End: 12-10-2023 Lab Drop off Ghislaine L Charline [facility] Start: 12-10-2023 End: 12-10-2023 ambulatory Ghislaine Zabala Facility:[facility] Start: 08-22-2023 End: 08-22-2023 Lab Drop off Ghislaine Zabala [facility] Start: 02-08-2023 End: 02-08-2023 ambulatory Steph Pa Other [employer] Other Start: 02-08-2023 Office outpatient ne w 30 minutes Steph Pa [facility] Start: 08-11-2022 End: 08-12-[address] DARREN JUDGE Facility:[facility] Start: 03-28-2022 End: 03-29-[address] SHANIA PEARSON Facility:[facility] Start: 03-21-2022 End: 03-22-[address] SHANIA PEARSON Facility:[facility] Procedures Date Procedure Procedure Detail Performing Clinician Start: 01-13-2025 End: 01-13-2025 Radex spine lumbosacral 2/3 views Arnoldo Mcdermott DO Work Phone: Start: 03-21-[address] DARREN TOSCANO Comment on above: Performed By: #### D ATPSA, DATTSH, DATBMP #### [facility] [address] [place] [address] Dr. Jose De Jesus Issa Cardiac catheter (ph ysical object) Ghislaine Charline Comment on above: was normal Colonoscopy Ghislaine Charline Comment on above: 2015 Education about post operative care after adenotonsillectomy Ghislaine Charline History of nasal sin us surgery Ghislaine Charline Plan of Treatment Date Care Activity Detail Author Start: 02-18-2025 End: 02-18-2025 ambulatory 02/18/2025 10:00 AM EDT Treatment [facility] [address] [place] [address] Ines Astudillo, PT [facility] Start: 02-10-2025 End: 02-10-2025 Patient encounter procedure 02/10/2025 1:30 PM EDT Office Visit [facility] [address] [place] [id number] Arnoldo Mcdermott DO [address] [place] [address] [facility] Start: 02-04-2025 End: 02-04-2025 ambulatory 02/04/2025 10:30 AM EST Treatment [facility] [address] [facility] [address] [place] [address] Ines Astudillo, PT [facility] Start: 02-01-2025 End: 02-01-2025 ambulatory [facility] Comment on above: Left hip pain (Prima ry Dx); Primary osteoarthritis of left hip; Lumbar spondylosis; Discogenic syndrome, lumbar; Left hip impingement syndrome Start: 01-28-2025 End: 01-28-2025 ambulatory [facility] Comment on above: Left hip pain (Prima ry Dx); Primary osteoarthritis of left hip; Lumbar spondylosis; Discogenic syndrome, lumbar; Left hip impingement syndrome Start: 01-26-2025 End: 01-26-2025 ambulatory 01/26/2025 11:00 AM EST Treatment [facility] [address] [facility] [address] [place] [address] Daiana Valentino, LE[employer] [facility] Start: 01-21-2025 End: 01-21-2025 ambulatory [facility] Comment on above: Left hip pain (Prima ry Dx); Primary osteoarthritis of left hip; Lumbar spondylosis; Discogenic syndrome, lumbar; Left hip impingement syndrome Start: 01-18-2025 End: 01-18-2025 ambulatory [facility] Comment on above: Left hip pain (Prima ry Dx); Primary osteoarthritis of left hip; Lumbar spondylosis; Discogenic syndrome, lumbar; Left hip impingement syndrome Start: 1960 Screening for malign ant neoplasm of colon [facility] XR Hip - left 3 Views XR hip lef t 2 or 3 views Imaging Routine Left hip pain 01/13/2025 11:13 AM EST [facility] Work Phone: XR Lumbar spine 2 or 3 Views XR lumbar spine 2 or 3 views Imaging Routine Left hip pain 01/13/2025 11:14 AM EST [facility] Immunizations Immunization Date Immunization Notes Care Provider Fa rom 10-16-2024 influenza, seasonal, injectable, preservative free; Translations: [Fluzone TIV PF ] Ghislaine Charline [facility] 10-07-2023 influenza, injectabl e, quadrivalent, preservative free Ghislaine Charline [facility] 10-03-2022 influenza virus vaccine, unspecified formulation Ghislaine Charline [facility] 10-03-2022 SARS-CoV-2 (COVID-19 ) [id number] Ghislaine Charline [facility] 04-26-2022 SARS-CoV-2 mRNA (sktzcqvxesz-pzhz-kawqq se) vaccine Ghislaine Charline [facility] 09-20-2021 influenza virus vaccine, unspecified formulation Ghislaine Charline [facility] 09-20-2021 SARS-CoV-2 (COVID-19 ) mRNA BNT-162b2 vax Ghislaine Charline [facility] 02-17-2021 SARS-CoV-2 (COVID-19 ) mRNA BNT-162b2 vax Ghislaine Charline [facility] 01-27-2021 SARS-CoV-2 (COVID-19 ) mRNA BNT-162b2 vax Ghislaine Charline [facility] 10-30-2020 influenza virus vaccine, unspecified formulation Ghislaine Charline [facility] 12-08-2019 influenza virus vaccine, unspecified formulation Ghislaine Charline [facility] 10-20-2018 influenza virus vaccine, unspecified formulation Ghislaine Charline [facility] 10-07-2017 influenza virus vaccine, unspecified formulation Ghislaine Charline [facility] 10-07-2015 influenza virus vaccine, unspecified formulation Ghislaine Charline [facility] Payers Date Payer Category Payer Medicare (Managed Care) [facility] [id number] 2023 Medicare [id number] 1960 Unknown [id number] 2.16.840.1.683549.3.579. 2.593 1960 Unknown [id number] 2.16.840.1.767868.3.579. 2.593 1960 Unknown [id number] 2.16.840.1.705598.3.579. 2.727 1960 Unknown [id number] 2.16.840.1.216108.3.579. 2.727 1960 Unknown [id number] 2.16.840.1.492120.3.579. 2.727 1960 Unknown [id number] 2.16.840.1.009180.3.579. 2.72 1960 Unknown [id number] 2.16.840.1.422484.3.579. 2.727 1960 Unknown [id number] 2.16.840.1.978337.3.579. 2.72 1960 Unknown [id number] 2.16.840.1.926679.3.579. 2.72 1960 Unknown [id number] 2.16.840.1.488574.3.579. 2. 1960 Unknown [id number] 2.16.840.1.048220.3.579. 2. 1960 Unknown [id number] 2.16.840.1.117632.3.579. 2. 1960 Unknown [id number] 2.16.840.1.793049.3.579. 2.72 1960 Unknown [id number] 2.16.840.1.163814.3.579. 2. 1960 Unknown [id number] 2.16.840.1.523609.3.579. 2. 1960 Unknown [id number] 2.16.840.1.107612.3.579. 2.125 1960 Unknown [id number] 2.16.840.1.949942.3.579. 2.125 1960 Unknown [id number] 2.16.840.1.295876.3.579. 2.1259 1960 Unknown [id number] 2.16.840.1.511914.3.579. 2.1259 1960 Unknown [id number] 2.16.840.1.375184.3.579. 2.1259 1960 Unknown [id number] 2.16.840.1.660838.3.579. 2.1259 1960 Unknown [id number] 2.16.840.1.423113.3.579. 2.1259 1960 Unknown [id number] 2.16.840.1.980698.3.579. 2.1259 1960 Unknown [id number] 2.16.840.1.623991.3.579. 2.1259 1960 Unknown [id number] 2.16.840.1.362246.3.579. 2.1259 1960 Unknown [id number] 2.16.840.1.491622.3.579. 2.1259 1960 Unknown [id number] 2.16.840.1.867642.3.579. 2.727 1960 Unknown [id number] 2.16.840.1.679716.3.579. 2.727 1960 Unknown [id number] 2.16.840.1.360904.3.579. 2.727 1959 Private Health Insurance [id number] 1959 Self-pay [id number] Medicare [id number] Private Health Insurance Self Pay [id number] Private Health Insurance [id number] 2.16.840.1.301058.19 Unknown [id number] 2.16.840.1.700291.3.579. 2.593 Social History Date Type Detail Facility Tobacco smoking stat [facility] Unknown if ever smoked [facility] Start: 1960 Sex Assigned At Male F [facility] Start: 01-13-2025 Sex Assigned At F [facility] Start: 05-13-2023 End: 12-30-2024 Tobacco smoking status Never smoked tobacco (finding) [facility] Comment on above: denies use Tobacco smoking status Never Briseida [facility] Comment on above: denies use Start: 01-13-2025 Tobacco use and exposure Smoke less tobacco non-user [facility] Start: 01-13-2025 Alcoholic beverage intake Current drinker of alcohol (finding) [facility] Start: 01-13-2025 History of Social function [facility] Start: 1960 Sex assigned at Not on file N [facility] Sexual Orientation [facility] Sex Male (finding) [facility] Medical Equipment Procedure Code Equipment Code Equipment Origin al Text Equipment Identifier Dates Start: 08-13-2017 [facility] Prescription, See Instructions, 200 Unspecified/Unknown, 3, BD insulin syringes 0.5ml, 29GX1/2 needles Use bid to inject insulin E10.8, [facility], Supply, 190, cm, 12/10/23 11:00:00 EST, Height/Length Dosing, 125, kg, 12/10/23 11:00:00 EST, Weight Dosing Start: 12-10-2023 one touch ultra test strips, See Instructions, 100 EA, 4, check blood sugar 4 times per day, [facility], Supply, 190, cm, 12/10/23 11:00:00 EST, Height/Length Dosing, 125, kg, 12/10/23 11:00:00 EST, Weight Dosing Start: 12-10-2023 [facility] Prescription, See Instructions, 200 Unspecified/Unknown, 3, BD insulin syringes 0.3ml, 29GX1/2 needles Use bid to inject insulin E10.8, [facility], Supply, 190, cm, 12/10/23 11:00:00 EST, Height/Length Dosing, 125, kg, 12/10/23 11:00:00 EST, Weight Dosing Start: 12-30-2023 one touch ultra test strips, See Instructions, 100 EA, 4, check blood sugar 4 times per day, [facility], Supply, 190, cm, 12/10/23 11:00:00 EST, Height/Length Dosing, 125, kg, 12/10/23 11:00:00 EST, Weight Dosing Start: 12-10-2023 [facility] Prescription, See Instructions, 200 Unspecified/Unknown, 3, BD insulin syringes 0.3ml, 29GX1/2 needles Use bid to inject insulin E10.8, [facility], Supply, 190, cm, 12/10/23 11:00:00 EST, Height/Length Dosing, 125, kg, 12/10/23 11:00:00 EST, Weight Dosing Start: 12-30-2023 one touch ultra test strips, See Instructions, 100 EA, 4, check blood sugar 4 times per day, [facility], Supply, 190, cm, 12/10/23 11:00:00 EST, Height/Length Dosing, 125, kg, 12/10/23 11:00:00 EST, Weight Dosing Start: 12-10-2023 [facility] Prescription, See Instructions, 200 Unspecified/Unknown, 3, BD insulin syringes 0.3ml, 29GX1/2 needles Use bid to inject insulin E10.8, [facility], Supply, 190, cm, 12/10/23 11:00:00 EST, Height/Length Dosing, 125, kg, 12/10/23 11:00:00 EST, Weight Dosing Start: 12-30-2023 one touch ultra test strips, See Instructions, 100 EA, 4, check blood sugar 4 times per day, [facility], Supply, 190, cm, 12/10/23 11:00:00 EST, Height/Length Dosing, 125, kg, 12/10/23 11:00:00 EST, Weight Dosing Start: 12-10-2023 insulin syringe 0.3ml 29Gx1/2 inch, See Instructions, 100 EA, 1, use when giving insulin, [facility], Supply, 190, cm, 10/16/24 10:29:00 EST, Height/Length Dosing, 123.4, kg, 10/16/24 10:29:00 EST, Weight Dosing Start: 12-24-2024 [facility] Prescription, See Instructions, 200 Unspecified/Unknown, 3, BD insulin syringes 0.3ml, 29GX1/2 needles Use bid to inject insulin E10.8, [facility], Supply, 190, cm, 12/10/23 11:00:00 EST, Height/Length Dosing, 125, kg, 12/10/23 11:00:00 EST, Weight Dosing Start: 12-30-2023 one touch ultra test strips, See Instructions, 100 EA, 4, check blood sugar 4 times per day, [facility], Supply, 190, cm, 10/16/24 10:29:00 EST, Height/Length Dosing, 123.4, kg, 10/16/24 10:29:00 EST, Weight Dosing Start: 11-20-2024 Goals Date Patient Goal Desired Activity /State Clinical Notes 02-08-2023 to 02-04-2025 Ines Astudillo, PT - 02/04/2025 10:30 AM Sarah Astudillo, PT - 02/01/2025 12:00 PM Sarah Astudillo, PT - 01/28/2025 10:30 AM Sarah Astudillo, PT - 01/21/2025 10:30 AM EST Note Date & Type Note Facility 02-04-2025 History of Presen t illness Narrative Physical Therapy Treatment Visit Patient Name: Arnoldo Gant Today's Date: 02/04/2025 Encounter Diagnoses Name Primary? Left hip pain Yes Primary osteoarthritis of left hip Lumbar spondylosis Discogenic syndrome, lumbar Left hip impingement syndrome Visit number: 6 Timed Code Treatment Minutes: 54 minutes Total Treatment Time: 54 minutes Time In: 10:30 AM Time Out: 11:27 PM History: Pt states he had discectomy performed in 1989 of L5/S1. Pt states he has now been told he has DDD throughout lumbar region. Last year while playing golf started to have more pain in left low back. Pt states now on days he does too much he will have nerve pain in left LB and buttock. Pt states his standing tolerance is limited to about 2 hours. Precautions: [place] Subjective: Pt states feeling better than he did last session. Ate more today before appointment. Pain in left low back still about 4/10. Pain: 4/10 presently Objective: PT Evaluation (01/14/2025) LUMBAR SPINE AROM: full flexion without ERP, extension limited to neutral without ERP, bilateral SB WFL without ERP; limited left hip IR ROM Strength: left hip ER 4/5, right 4 to 4+/5; core strength is fair Palpation: Mild to moderate tenderness left lower lumbar region Special Test: mild discomfort left hip scour, negative slump and SLR Neurological: Reflexes: 1 bilateral patellar Myotomes: negative bilateral Dermatomes: negative bilateral; decrease left great toe sensation due to previous crush injury Special Test: negative clonus bilateral Treatment: Manual Therapy: () Delivered manual ther, L hip PROM , distraction of L Hip using P-Ball to improve mobility and decrease pain. Therapeutic Exercise: (54 minutes) Guided pt through ther and flex ex per grid to improve lumbar core LE functional mobility and strength; reviewed home program and importance of continued core and lumbar strengthening. Therapeutic Activity: Exercises to improve dynamic activities, functional tasks, functional mobility to return to prior activity level as needed. Neuromuscular re-education: ()Core lumbar stability exercises per grid focusing on improving strength of transverse abdominals to improve core stability Modalities: () Held this date Assessment: Visit #6 pt with complaints of lower lumbar and left hip pain. Strength bilateral hip ER 4+/5 with MMT. Core strength is good/fair. Discussed the importance of continued strengthening with good pt understanding. Will re-assess in 2 weeks for possible discharge. Outcome Measure: Back Index: 20/50 Rehab Diagnosis: low back pain, core weakness, decrease mobility and ROM Short Term Goal: To be met in 2 weeks Goal 1: Pt to be instructed in home exercise program. [employer] Goals: To be met in 10 weeks Goal 1: Pt to report independence and compliance with home program. Goal 2: Pt to present with equal hip IR ROM to assist with functional mobility and gait. Goal 3: Pt to report pain no greater than 1-2/10 with function tasks, ADL's, and work related activities. Goal 4: Pt to achieve 4+/5 strength bilateral hip ER to assist with functional tasks. Goal 5: Pt to score no greater than 5/50 on Back Index indicating improved QOL. Pt will benefit from skilled PT for 2x/week from 01/14/2025 to 03/25/2025 to address the above impairments. I hereby deem this POC medically necessary. Please sign below. Date: documented in this encounter [facility] 02-01-2025 History of Presen t illness Narrative Physical Therapy Treatment Visit Patient Name: Arnoldo Gant Today's Date: 02/01/2025 Encounter Diagnoses Name Primary? Left hip pain Yes Primary osteoarthritis of left hip Lumbar spondylosis Discogenic syndrome, lumbar Left hip impingement syndrome Visit number: 5 Timed Code Treatment Minutes: 40 minutes Total Treatment Time: 55 minutes Time In: 11:57 AM Time Out: 12:56 PM History: Pt states he had discectomy performed in 1989 of L5/S1. Pt states he has now been told he has DDD throughout lumbar region. Last year while playing golf started to have more pain in left low back. Pt states now on days he does too much he will have nerve pain in left LB and buttock. Pt states his standing tolerance is limited to about 2 hours. Precautions: [place] Subjective: Pt states feeling better than he did last session. Ate more today before appointment. Pain in left low back still about 4/10. Pain: 4/10 presently Objective: PT Evaluation (01/14/2025) LUMBAR SPINE AROM: full flexion without ERP, extension limited to neutral without ERP, bilateral SB WFL without ERP; limited left hip IR ROM Strength: left hip ER 4/5, right 4 to 4+/5; core strength is fair Palpation: Mild to moderate tenderness left lower lumbar region Special Test: mild discomfort left hip scour, negative slump and SLR Neurological: Reflexes: 1 bilateral patellar Myotomes: negative bilateral Dermatomes: negative bilateral; decrease left great toe sensation due to previous crush injury Special Test: negative clonus bilateral Treatment: Manual Therapy: () Delivered manual ther, L hip PROM , distraction of L Hip using P-Ball to improve mobility and decrease pain. IDN to left lower lumbar and SIJ with static placement of 4 two inch needles (5 mins, no charge) Therapeutic Exercise: (40 minutes) Guided pt through ther and flex ex per grid to improve lumbar core LE functional mobility and strength; progressed core strengthening on emirati ball this date. Therapeutic Activity: Exercises to improve dynamic activities, functional tasks, functional mobility to return to prior activity level as needed. Neuromuscular re-education: ()Core lumbar stability exercises per grid focusing on improving strength of transverse abdominals to improve core stability Modalities: (10 minutes ) Post session pt seated MHP to lumbar region to reduce muscle soreness Assessment: Visit #5 pt with complaints of lower lumbar and left hip pain. Pt continues with min to moderate tenderness left lower lumbar region. Will monitor response to dry needling. Outcome Measure: Back Index: 20/50 Rehab Diagnosis: low back pain, core weakness, decrease mobility and ROM Short Term Goal: To be met in 2 weeks Goal 1: Pt to be instructed in home exercise program. [facility] Goals: To be met in 10 weeks Goal 1: Pt to report independence and compliance with home program. Goal 2: Pt to present with equal hip IR ROM to assist with functional mobility and gait. Goal 3: Pt to report pain no greater than 1-2/10 with function tasks, ADL's, and work related activities. Goal 4: Pt to achieve 4+/5 strength bilateral hip ER to assist with functional tasks. Goal 5: Pt to score no greater than 5/50 on Back Index indicating improved QOL. Pt will benefit from skilled PT for 2x/week from 01/14/2025 to 03/25/2025 to address the above impairments. I hereby deem this POC medically necessary. Please sign below. Date: documented in this encounter [facility] 01-28-2025 History of Presen t illness Narrative Images from the original note were not included. Physical Therapy Treatment Visit Patient Name: Arnoldo Gant Today's Date: 01/28/2025 Encounter Diagnoses Name Primary? Left hip pain Yes Primary osteoarthritis of left hip Lumbar spondylosis Discogenic syndrome, lumbar Left hip impingement syndrome Visit number: 4 Timed Code Treatment Minutes: 32 minutes Total Treatment Time: 42 minutes Time In: 10:25 AM Time Out: 11:16 AM History: Pt states he had discectomy performed in 1989 of L5/S1. Pt states he has now been told he has DDD throughout lumbar region. Last year while playing golf started to have more pain in left low back. Pt states now on days he does too much he will have nerve pain in left LB and buttock. Pt states his standing tolerance is limited to about 2 hours. Precautions: [place] Subjective: Pt states his muscles were sore following last session; no increase in low back pain. Pain remains constant 4/10 in low back. Pain: 4/10 presently Objective: PT Evaluation (01/14/2025) LUMBAR SPINE AROM: full flexion without ERP, extension limited to neutral without ERP, bilateral SB WFL without ERP; limited left hip IR ROM Strength: left hip ER 4/5, right 4 to 4+/5; core strength is fair Palpation: Mild to moderate tenderness left lower lumbar region Special Test: mild discomfort left hip scour, negative slump and SLR Neurological: Reflexes: 1 bilateral patellar Myotomes: negative bilateral Dermatomes: negative bilateral; decrease left great toe sensation due to previous crush injury Special Test: negative clonus bilateral Treatment: Manual Therapy: () Delivered manual ther, L hip PROM , distraction of L Hip using P-Ball to improve mobility and decrease pain Therapeutic Exercise: (40 minutes) Guided pt through ther and flex ex per grid to improve lumbar core LE functional mobility and strength Therapeutic Activity: Exercises to improve dynamic activities, functional tasks, functional mobility to return to prior activity level as needed. Neuromuscular re-education: ()Core lumbar stability exercises per grid focusing on improving strength of transverse abdominals to improve core stability Modalities: (10 minutes ) Post session pt seated MHP to lumbar region to reduce muscle soreness Assessment: Visit #4 pt with complaints of lower lumbar and left hip pain. Pt with limited progression of exercises this date due to pt starting to not feel well during session. Held on supine exercises this date. Will continue to progress as pt tolerates. Outcome Measure: Back Index: 20/50 Rehab Diagnosis: low back pain, core weakness, decrease mobility and ROM Short Term Goal: To be met in 2 weeks Goal 1: Pt to be instructed in home exercise program. [facility] Goals: To be met in 10 weeks Goal 1: Pt to report independence and compliance with home program. Goal 2: Pt to present with equal hip IR ROM to assist with functional mobility and gait. Goal 3: Pt to report pain no greater than 1-2/10 with function tasks, ADL's, and work related activities. Goal 4: Pt to achieve 4+/5 strength bilateral hip ER to assist with functional tasks. Goal 5: Pt to score no greater than 5/50 on Back Index indicating improved QOL. Pt will benefit from skilled PT for 2x/week from 01/14/2025 to 03/25/2025 to address the above impairments. I hereby deem this POC medically necessary. Please sign below. Date: documented in this encounter [facility] 01-26-2025 Telephone encounter Note He called noting unable to make PT this morning due to waking up w/ diarrhea. I reminded and he said he'll try his hardest to make his 01/28 PT w/ Reginald Astudillo PT. [facility] 01-26-2025 Miscellaneous Notes He called noting unable to make PT this morning due to waking up w/ diarrhea. I reminded and he said he'll try his hardest to make his 01/28 PT w/ Reginald Astudillo PT. documented in this encounter [facility] 01-21-2025 History of Presen t illness Narrative Images from the original note were not included. Physical Therapy Treatment Visit Patient Name: Arnoldo Gant Today's Date: 01/21/2025 Encounter Diagnoses Name Primary? Left hip pain Yes Primary osteoarthritis of left hip Lumbar spondylosis Discogenic syndrome, lumbar Left hip impingement syndrome Visit number: 3 Timed Code Treatment Minutes: 40 minutes Total Treatment Time: 50 minutes Time In: 10:25 AM Time Out: 11:20 AM History: Pt states he had discectomy performed in 1989 of L5/S1. Pt states he has now been told he has DDD throughout lumbar region. Last year while playing golf started to have more pain in left low back. Pt states now on days he does too much he will have nerve pain in left LB and buttock. Pt states his standing tolerance is limited to about 2 hours. Precautions: [place] Subjective: No complaints following last session. Pt states he was sitting on a hard chair yesterday for a meeting and then had to go to work. Back was hurting after about 30 minutes into shift. Was using heating pad just prior to therapy today which has helped. Pain: 03/11 presently Objective: PT Evaluation (01/14/2025) LUMBAR SPINE AROM: full flexion without ERP, extension limited to neutral without ERP, bilateral SB WFL without ERP; limited left hip IR ROM Strength: left hip ER 4/5, right 4 to 4+/5; core strength is fair Palpation: Mild to moderate tenderness left lower lumbar region Special Test: mild discomfort left hip scour, negative slump and SLR Neurological: Reflexes: 1 bilateral patellar Myotomes: negative bilateral Dermatomes: negative bilateral; decrease left great toe sensation due to previous crush injury Special Test: negative clonus bilateral Treatment: Manual Therapy: () Delivered manual ther, L hip PROM , distraction of L Hip using P-Ball to improve mobility and decrease pain Therapeutic Exercise: (40 minutes) Guided pt through ther and flex ex per grid to improve lumbar core LE functional mobility and strength Therapeutic Activity: Exercises to improve dynamic activities, functional tasks, functional mobility to return to prior activity level as needed. Neuromuscular re-education: ()Core lumbar stability exercises per grid focusing on improving strength of transverse abdominals to improve core stability Modalities: (10 minutes ) Post session pt seated MHP to lumbar region to reduce muscle soreness Assessment: Visit #3 pt with complaints of lower lumbar and left hip pain. Limited progression of supine core strengthening exercises due to pt complaints of dizziness with prolong supine positioning. Pt denies room spinnning ; more nausea. Will attempt supine exercises with head of bed elevated next session. Outcome Measure: Back Index: 20/50 Rehab Diagnosis: low back pain, core weakness, decrease mobility and ROM Short Term Goal: To be met in 2 weeks Goal 1: Pt to be instructed in home exercise program. Half-Way Goals: To be met in 10 weeks Goal 1: Pt to report independence and compliance with home program. Goal 2: Pt to present with equal hip IR ROM to assist with functional mobility and gait. Goal 3: Pt to report pain no greater than 1-2/10 with function tasks, ADL's, and work related activities. Goal 4: Pt to achieve 4+/5 strength bilateral hip ER to assist with functional tasks. Goal 5: Pt to score no greater than 5/50 on Back Index indicating improved QOL. Pt will benefit from skilled PT for 2x/week from 01/14/2025 to 03/25/2025 to address the above impairments. I hereby deem this POC medically necessary. Please sign below. Date: documented in this encounter [facility] 01-14-2025 History of Presen t illness Narrative Images from the original note were not included. Physical Therapy Evaluation Visit Patient Name: Arnoldo Gant Today's Date: 01/14/2025 Encounter Diagnoses Name Primary? Lumbar spondylosis Yes Left hip pain Primary osteoarthritis of left hip Discogenic syndrome, lumbar Left hip impingement syndrome Visit number: 1 Timed Code Treatment Minutes: 52 minutes Total Treatment Time: 62 minutes Time In: 0905 Time Out: 1015 History: Pt states he had discectomy performed in 1989 of L5/S1. Pt states he has now been told he has DDD throughout lumbar region. Last year while playing golf started to have more pain in left low back. Pt states now on days he does too much he will have nerve pain in left LB and buttock. Pt states his standing tolerance is limited to about 2 hours. Precautions: [place] Subjective: Left lower lumbar region Pain: 5/10 Objective: PT Evaluation (01/14/2025) LUMBAR SPINE AROM: full flexion without ERP, extension limited to neutral without ERP, bilateral SB WFL without ERP; limited left hip IR ROM Strength: left hip ER 4/5, right 4 to 4+/5; core strength is fair Palpation: Mild to moderate tenderness left lower lumbar region Special Test: mild discomfort left hip scour, negative slump and SLR Neurological: Reflexes: 1 bilateral patellar Myotomes: negative bilateral Dermatomes: negative bilateral; decrease left great toe sensation due to previous crush injury Special Test: negative clonus bilateral Treatment: Education: HEP education with demonstration, Educated on Eval Findings and POC Manual Therapy: (12 minutes) Passive ROM, Joint mobilization, Soft Tissue Mobilization, Myofascial Release, Muscle Energy Technique, Neural Mobilization, Myofascial Cupping, Dry Needling, IASTM, and Scar mobilization as needed. Manual lumbar distraction in supine with use of emirati ball. Therapeutic Exercise: (12 minutes) Strength, Endurance, Flexibility, ROM, HEP, Neural Mobilization, Power, and Core Stability as needed. Pt performed and instructed in home program this date; written instructions and pictures issued with good pt understanding. Therapeutic Activity: Exercises to improve dynamic activities, functional tasks, functional mobility to return to prior activity level as needed. Neuromuscular re-education: Balance Training, Muscle Facilitation, Dynamic Stability, Core Stabilization, and Blood Flow Restriction Training (BFRT) as needed. Modalities: Heat, Ice, Electrical Stimulation, Lumbar Mechanical Traction as needed. HP to lumbar region in supine X 10 minutes Assessment: Pt is 64 y/o male with complaints of lower lumbar pain. Pt with negative slump and SLR testing. Pt with limited lumbar extension and left hip IR ROM. Decrease core and left hip strength. Pt instructed in home program and will benefit from further PT. Outcome Measure: Back Index: 20/50 Rehab Diagnosis: low back pain, core weakness, decrease mobility and ROM Short Term Goal: To be met in 2 weeks Goal 1: Pt to be instructed in home exercise program. Half-Way Goals: To be met in 10 weeks Goal 1: Pt to report independence and compliance with home program. Goal 2: Pt to present with equal hip IR ROM to assist with functional mobility and gait. Goal 3: Pt to report pain no greater than 1-2/10 with function tasks, ADL's, and work related activities. Goal 4: Pt to achieve 4+/5 strength bilateral hip ER to assist with functional tasks. Goal 5: Pt to score no greater than 5/50 on Back Index indicating improved QOL. Pt will benefit from skilled PT for 2x/week from 01/14/2025 to 03/25/2025 to address the above impairments. I hereby deem this POC medically necessary. Please sign below. Date: documented in this encounter [facility] 01-13-2025 History of Presen t illness Narrative Images from the original note were not included. Arnoldo Gant is a 64 y.o. male presents with chief complaint of left hip and low back pain. HPI: Arnoldo is a 64-year-old white male referred here today by Ghislaine Zabala for evaluation of his left hip. He is referred for left hip pain and osteoarthritis. He reports the pain as posterolateral. It is worse at night with maneuvering in certain ways. He denies any radiation. He does have a history of lumbar spine surgery in 1989 for a disc. He does take edibles at bedtime. He describes his hemoglobin A1C as being greater than 8. He has had no care or treatment. He is simply referred here for further delineation. SUBJECTIVE: MEDICATIONS: Current Outpatient Medications Medication Instructions atorvastatin (LIPITOR) 20 mg cyclobenzaprine (FLEXERIL) 10 mg diclofenac (VOLTAREN) 75 mg, Oral, 2 times daily, Do not crush, chew, or split. glyBURIDE (DIABETA) 5 mg, 2 times daily levothyroxine (SYNTHROID, LEVOXYL) 175 mcg metoprolol tartrate (Lopressor) 50 MG tablet NovoLIN N 100 UNIT/ML injection Inject under the skin Trulicity 3 MG/0.5ML solution auto-injector ALLERGIES: Allergies Allergen Reactions Metformin Other Reaction(s): Unknown Penicillins Other Reaction(s): Unknown SURGICAL HISTORY: Past Surgical History: Procedure Laterality Date BACK SURGERY FAMILY HISTORY: Family History Problem Relation Name Age of Onset Diabetes Father Heart disease Father SOCIAL HISTORY: Social History Tobacco Use Smoking status: Never Smokeless tobacco: Never Vaping Use Vaping status: Never Used Substance Use Topics Alcohol use: Yes Drug use: Yes Comment: Edibles Depression: Not on file REVIEW OF SYMPTOMS: The review of systems, history and current medications list are all reviewed today. OBJECTIVE: Visit Vitals Ht 6' 3 Wt 266 lb BMI 33.25 kg/m Smoking Status Never BSA 2.53 m Physical Exam His orthopedic exam does reveal some obesity. He is in no acute distress. He answers all questions appropriately. Examination of the left hip shows internal and external rotation on the order of 30 and 35-40 degrees, symmetric with the contralateral right side. He does report some referral of discomfort to the posterior hip area, iliac area with this movement. The calf and thigh are supple. His neurocirculatory status is overall grossly intact to all distributions. Examination of the x-ray done here today AP pelvis with left lateral hip, total of three views, does show some medial pole osteoarthritis. He does have femoral acetabular impingement of a cam type. There is no evidence of fracture or other osseous abnormality. X-rays of the lumbar spine two views AP and lateral views with permanent images are saved to the record does show evidence of degenerative disc and degenerative joint change throughout. This is most pronounced at the L4-5 level, L5-S1 level. No evidence of fracture or other osseous abnormality. ASSESSMENT AND PLAN: Assessment/Plan Left hip osteoarthritis with femoral acetabular impingement, lumbar degenerative disc and degenerative joint disease. Diabetes mellitus with poor control. The findings are discussed. We did outline corticosteroid injection treatment orally but recommended against this due to his poorly controlled diabetes. We did discuss as such oral nonsteroidal anti-inflammatory medication. He would like to go ahead with that. He is started on Voltaren XR 75 mg twice a day. We did recommend formal physical therapy with a trial of pelvic traction. He states that pelvic traction previously was really uncomfortable for him. As such, we did recommend he still try this for an update. He does voice understanding. We did discuss next steps and further treatment. All of his questions are otherwise answered this day. He is discharged in stable condition here today. We will see him back here in one month for a recheck and review of the therapy. Follow up letter sent to Ghislaine Zabala. Cosigned by Arnoldo Mcdermott DO at 01/24/2025 4:36 PM EST documented in this encounter [facility] 12-30-2024 Note Patient Education Endocrinology Hypothyroidism Hypothyroidism is when the thyroid gland does not make enough of certain hormones. This is called an underactive thyroid. The thyroid gland is a small gland located in the lower front part of the neck, just in front of the windpipe (trachea). This gland makes hormones that help control how the body uses food for energy (metabolism) as well as how the heart and brain function. These hormones also play a role in keeping your bones strong. When the thyroid is underactive, it produces too little of the hormones thyroxine (T4) and triiodothyronine (T3). What are the causes? This condition may be caused by: ??? Lonnie's disease. This is a disease in which the body's disease-fighting system (immune system) attacks the thyroid gland. This is the most common cause. ??? Viral infections. ??? . ??? Certain medicines. ??? defects. ??? Problems with a gland in the center of the brain (pituitary gland). ??? Lack of enough iodine in the diet. Other causes may include: ??? Past radiation treatments to the head or neck for cancer. ??? Past treatment with radioactive iodine. ??? Past exposure to radiation in the environment. ??? Past surgical removal of part or all of the thyroid. What increases the risk? You are more likely to develop this condition if: ??? You are female. ??? You have a family history of thyroid conditions. ??? You use a medicine called lithium. ??? You take medicines that affect the immune system (immunosuppressants). What are the signs or symptoms? Common symptoms of this condition include: ??? Not being able to tolerate cold. ??? Feeling as though you have no energy (lethargy). ??? Lack of appetite. ??? Constipation. ??? Sadness or depression. ??? Weight gain that is not explained by a change in diet or exercise habits. ??? Menstrual irregularity. ??? Dry skin, coarse hair, or brittle nails. Other symptoms may include: ??? Muscle pain. ??? Slowing of thought processes. ??? Poor memory. How is this diagnosed? This condition may be diagnosed based on: ??? Your symptoms, your medical history, and a physical exam. ??? Blood tests. You may also have imaging tests, such as an ultrasound or MRI. How is this treated? This condition is treated with medicine that replaces the thyroid hormones that your body does not make. After you begin treatment, it may take several weeks for symptoms to go away. Follow these instructions at home: ??? Take gatc-vec-lfyvlrw and prescription medicines only as told by your health care provider. ??? If you start taking any new medicines, tell your health care provider. ??? Keep all follow-up visits as told by your health care provider. This is important. ? As your condition improves, your dosage of thyroid hormone medicine may change. ? You will need to have blood tests regularly so that your health care provider can monitor your condition. Contact a health care provider if: ??? Your symptoms do not get better with treatment. ??? You are taking thyroid hormone replacement medicine and you: ? Sweat a lot. ? Have tremors. ? Feel anxious. ? Lose weight rapidly. ? Cannot tolerate heat. ? Have emotional swings. ? Have diarrhea. ? Feel weak. Get help right away if: ??? You have chest pain. ??? You have an irregular heartbeat. ??? You have a rapid heartbeat. ??? You have difficulty breathing. These symptoms may be an emergency. Get help right away. Call 911. ??? Do not wait to see if the symptoms will go away. ??? Do not drive yourself to the hospital. Summary ??? Hypothyroidism is when the thyroid gland does not make enough of certain hormones (it is underactive). ??? When the thyroid is underactive, it produces too little of the hormones thyroxine (T4) and triiodothyronine (T3). ??? The most common cause is Lonnie's disease, a disease in which the body's disease-fighting system (immune system) attacks the thyroid gland. The condition can also be caused by viral infections, medicine, , or past radiation treatment to the head or neck. ??? Symptoms may include weight gain, dry skin, constipation, feeling as though you do not have energy, and not being able to tolerate cold. ??? This condition is treated with medicine to replace the thyroid hormones that your body does not make. This information is not intended to replace advice given to you by your health care provider. Make sure you discuss any questions you have with your health care provider. Document Revised: 11/20/2022 Document Reviewed: 11/20/2022 [employer] Patient Education ? 2023 [employer] Diabetes Mellitus and Foot Care Diabetes, also called diabetes mellitus, may cause problems with your feet and legs because of poor blood flow (circulation). Poor circulation may make your skin: ??? Become thinner and sock drier. ??? Break more easily. ??? Heal more slowly. (more content not included)... [facility] 02-19-2024 Evaluation + Plan note Future Scheduled [id number] 02/19/24 [facility] 02-08-2023 Evaluation note Encounter Date Diagnosis Assessment Notes Jan, Contact with and (suspected) exposure to other viral communicable diseases (ICD-10 - Z20.828) Jan, COVID-19 (ICD-10 - U07.1) Rapid COVID test performed in office today. Advised patient that test was positive. Influenza A/B test negative. Instructed patient to isolate per CDC guidelines for 5 days from symptom onset, mask 5 days following. May return to work/activities outside home after isolation period as long as symptoms are improving and has been afebrile for 24 hours without use of antipyretic. Advised patient that treatment of COVID is with viral supportive care, OTC cold medications as directed, Tylenol/Motrin as needed for body aches/fever. Increase fluids and rest. Encouraged use of cool mist humidifier. Follow-up with PCP to advise of positive result and further management, including if patient is candidate for Paxlovid medication. Immediate eval for SOB, difficulty, chest pain, fevers that do not break with antipyretic or any other concerning symptoms as reviewed on patient education handout. Patient verbalizes understanding and is agreeable to treatment plan. Patient left in stable condition [employer] Other Evaluation + Plan note No data available for this section [facility] Future Appointments Appointment Date:12/12/2023 10:00:00 AM Scheduled Provider: Location:[facility] Appointment Type:US Abdominal/Pelvis ([facility]) Future Scheduled Tests Radiology* US Abdomen [facility] Future App[facility]ments Appointment Date:03/10/2024 10:40:00 AM Scheduled Provider: Location:[facility] Appointment Type:FM Lab Draw [facility] Evaluation + Plan note Future Appointments Appointment Date:12/30/2025 11:00:00 AM Scheduled Provider: Location:[facility] Appointment Type: Medicare Wellness Subsequent Future Scheduled Tests Laboratory* [id number] 02/19/24 [facility] Evaluation + Plan note Future Appointments Appointment Date:12/30/2025 11:00:00 AM Scheduled Provider: Location:[facility] Appointment Type: Medicare Wellness Subsequent [facility] evaluation note* Diagnosis Lumbar spondylosis- Primary Lumbosacral spondylosis without myelopathy Left hip pain Pain in joint, pelvic region and thigh Primary osteoarthritis of left hip Discogenic syndrome, 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 Left hip impingement syndrome [facility] Diagnosis Left hip pain- Primary Pain in joint, pelvic region and thigh Primary osteoarthritis of left hip Lumbar spondylosis Lumbosacral spondylosis without myelopathy Discogenic syndrome, 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 Left hip impingement syndrome [facility] Diagnosis Left hip pain- Primary Pain in joint, pelvic region and thigh Primary osteoarthritis of left hip Lumbar spondylosis Lumbosacral spondylosis without myelopathy Discogenic syndrome, 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 Left hip impingement syndrome [facility] Diagnosis Left hip pain- Primary Pain in joint, pelvic region and thigh Primary osteoarthritis of left hip Lumbar spondylosis Lumbosacral spondylosis without myelopathy Discogenic syndrome, 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 Left hip impingement syndrome [facility] Diagnosis Left hip pain- Primary Pain in joint, pelvic region and thigh Primary osteoarthritis of left hip Lumbar spondylosis Lumbosacral spondylosis without myelopathy Discogenic syndrome, 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 Left hip impingement syndrome [facility] N[facility] - Reported* Type Description Date Medical History type II diabetes Medical History Hypothyroidism Surgical History back surgery 1989 Surgical History nasal polys 2011 Surgical History thyroid ablation for hyperthyro idism 2010 Hospitalization History see above surgical histo ry [facility] [employer] Other Hospital Discharge instructions No data available for this section [facility] No data available for this section [facility]* Consultation (Routine) - Authorized Specialty Diagnoses / Procedures Referred By Contac t Referred To Contact Physical Therapy Diagnoses Left hip pain Primary osteoarthritis of left hip Lumbar spondylosis Discogenic syndrome, lumbar Left hip impingement syndrome Procedures [place] OFFICE/OUTPATIENT NEW HIGH MDM 60 MINUTES Arnoldo Mcdermott, DO [address] [place] [address] Phone: tel: fax: Jaylen Lemon, PT [address] [employer] [address] [address] Phone: tel: fax: Referral ID Status Reason Start Date Expiration Date Visits Requested Visits Authorized [id number] Authorized Consult and Treat 01/13/2025 07/12/2025 99 99 [facility] HealthcareReason for [facility] Narrative* Consultation (Routine) - Authorized Specialty Diagnoses / Procedures Referred By Contac t Referred To Contact Physical Therapy Diagnoses Left hip pain Primary osteoarthritis of left hip Lumbar spondylosis Discogenic syndrome, lumbar Left hip impingement syndrome Procedures [place] OFFICE/OUTPATIENT NEW HIGH MDM 60 MINUTES Arnoldo Mcdermott, DO [address] [place] [address] Phone: tel: fax: Jaylen Lemon, PT [address] [employer] [address] [address] Phone: tel: fax: Referral ID Status Reason Start Date Expiration Date Visits Requested Visits Authorized [id number] Authorized Consult and Treat 01/13/2025 12/01/2025 99 99 [facility] Summary Purpose Family History No Family History Records FoundNo Family History Records Found No data available for this section No data available for this section No data available for this section No data available for this section No Family History Records Found No data available for this section No Family History Records FoundNo Family History Records Found No data available for this section No Family History Records FoundNo Family History Records FoundNo Family History Records FoundNo Family History Records FoundNo Family History Records Found Advance Directives No Advanced Directives Records Found Advance Directive Response Recorded Date/ Time Advance Directives No June 05 8 7:28am Assessments No Assessments Information Available Additional Source Comments (unrecognized sect ion and content) No Status Records FoundNo Status Records FoundNo Status Records FoundNo Status Records FoundNo Status Records FoundNo Status Records FoundNo Status Records FoundNo Status Records FoundNo Status Records FoundNo Status Records Found INFORMATION SOURCE (unrecogn ized section and content) DATE CREATED AUTHOR 01/14/2020 [facility] DATE CREATED AUTHOR AUTHOR'S ORGANIZ ATION 10/04/2022 [facility] DATE CREATED AUTHOR AUTHOR'S ORGANIZ ATION 10/18/2024 [facility] DATE CREATED AUTHOR AUTHOR'S ORGANIZ ATION 01/01/2025 [facility] DATE CREATED AUTHOR AUTHOR'S ORGANIZ ATION 02/06/2025 [facility] DATE CREATED AUTHOR AUTHOR'S ORGANIZ ATION 02/20/2025 [facility] DATE CREATED AUTHOR AUTHOR'S ORGANIZ ATION 02/25/2025 [facility] REASON FOR VISIT (unrecogniz ed section and content) Reason Comments Pain Reason Onset Date Comments CX PT today 01/26/2025 Patient Care team informatio n (unrecognized section and content) 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 Start Date End Date Ghislaine Zabala MD [address] [place] [id number] Referring Physician Family Medicine 12/31/24 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 Specialty Start Date End Date Ghislaine Zabala MD [address] [place] [id number] Referring Physician Family Medicine 12/31/24 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 Specialty Start Date End Date Ghislaine Zabala MD [address] [place], [place] [id number] Referring Physician Family Medicine 12/31/24 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 Specialty Start Date End Date Ghislaine Zabala MD [address] [place], [place] [id number] Referring Physician Family Medicine 12/31/24 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 Specialty Start Date End Date Ghislaine Zabaal MD [address] [place], [place] [id number] Referring Physician Family Medicine 12/31/24 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 Specialty Start Date End Date Ghislaine Zaabla MD [address] [place], [place] [phone] Referring Physician Family Medicine 12/31/24 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 Specialty Start Date End Date Ghislaine Zabala MD [address] [place], [place] [id number] Referring Physician Family Medicine 12/31/24 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 Specialty Start Date End Date Ghislaine Zabala MD [address] [place], [place] [id number] Referring Physician Family Medicine 12/31/24 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 This clinical summary was aggregated from multiple sources. Caution should be exercised in using it in the provision of clinical care. This summary normalizes information from multiple sources, and as a consequence, information in this document may materially change the coding, format and clinical context of patient data. In addition, data may be omitted in some cases. CLINICAL DECISIONS SHOULD BE BASED ON THE PRIMARY CLINICAL RECORDS. [facility]. provides no warranty or guarantee of the accuracy or completeness of information in this document.
--- NOTE | 2025-03-15 11:08 | CT_ITS ---
The [address] [address] Patient Name: ARNOLDO ARIAS MRN: [id number] date: 1960 Sex: M Assigned Patient Location: ER Current Patient Location: ER Accession/Order Number: [id number] Exam Date: 03/15/2025 11:47 Report Date: 03/15/2025 11:58 At the request of: CONSTANCE TURNER MD Procedure: CT abdomen pelvis wo con CT ABDOMEN AND PELVIS WITHOUT CONTRAST CLINICAL DATA: Low abdominal pain and diarrhea. COMPARISON: 08/12/2022 Spiral images were obtained through the abdomen and pelvis without contrast. This CT exam was performed using one or more following dose reduction techniques: Automated exposure control, adjustment of the mA and/or kV according to patient size, or use of iterative reconstruction technique. Limited cuts through the lung bases show no contributory findings. The top of the hepatic dome is not included in its entirety. Assessment of the intra-abdominal organs is slightly limited by the absence of contrast. No calcified gallstones are identified. No intrahepatic masses are seen. The spleen is unremarkable. 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 No adrenal nodularity is seen. There is minor bilateral perinephric fibrofatty. No renal calculi or hydronephrosis are noted. There is no ureteral dilatation or stones. Atherosclerotic plaque is present at the aorta, proximal right iliac and some of the visceral arteries. There are tiny lymph nodes. There is continued subtle hazy density at the root of the mesentery, possibly mesenteric panniculitis. There is no ascites. No dilated small bowel loops are seen. Food debris is visualized within the stomach. The colon is mostly decompressed. There are mild degenerative changes at the spine Images through the pelvis show no appendiceal formation. There is no dilated small bowel. The remainder of the colon is decompressed. There is no apparent wall thickening. There is no diverticular disease. The prostate is normal size and contains calcification. The urinary bladder wall appears slightly thickened for the degree of distention. A small umbilical hernia is noted containing fat. There are inguinal lymph nodes with fatty pay[place]. No ascites is seen. CT/CT abdomen pelvis wo con IMPRESSION: NO BOWEL OR URINARY TRACT OBSTRUCTION. POSSIBLE MINOR MESENTERIC PANNICULITIS, ALSO SEEN PREVIOUSLY. APPARENT SLIGHT THICKENING OF THE URINARY BLADDER WALL. THIS MIGHT RELATE TO UNDERDISTENTION HOWEVER CORRELATION IS RECOMMENDED TO ANY POSSIBILITY OF CYSTITIS. NO OTHER ACUTE FINDINGS. Impression dictated by: Yusra Peterson M.D.03/15/2025 11:58 AM Dictation Location: [place] [address] Electronically authenticated by: [id number] Y Date: 03/15/2025 11:58
--- NOTE | 2025-03-15 11:10 | ED_ITS ---
HPI HPI - General Adult General Chief complaint: Nausea/Vomiting/Diarrhea Stated complaint: DIARRHEA Time Seen by Provider: 03/15/25 10:54 Source: patient Mode of arrival: walk-in Limitations: no limitations History of Present Illness HPI narrative: This 64-year-old male presents to the ED with chief complaint of watery diarrheal stool since yesterday that is now starting to turn green. He reports lower abdominal pain. He has not had nausea or vomiting, chills or fever. No other family members at home have had a similar illness. Related Data Home Medications ?Medication ?Instructions ?Recorded ?Confirmed atorvastatin 20 mg tablet 20 mg PO DAILY 10/29/24 03/15/25 cyclobenzaprine 10 mg tablet 10 mg PO DAILY 10/29/24 03/15/25 dulaglutide 1.5 mg/0.5 mL mg subcut 10/29/24 subcutaneous pen injector (Trulicity) glyburide 5 mg tablet 5 mg PO Q12H 10/29/24 03/15/25 insulin NPH isoph U-100 human 100 1 unit subcut .Sliding Scale 10/29/24 03/15/25 unit/mL subcutaneous suspension (Humulin N NPH U-100 Insulin (isophane susp)) levothyroxine 175 mcg tablet 175 mcg PO DAILY 10/29/24 03/15/25 methocarbamol 750 mg tablet 750 mg PO DAILY 10/29/24 03/15/25 metoprolol tartrate 50 mg tablet 50 mg PO DAILY 10/29/24 03/15/25 omeprazole 40 mg capsule,delayed 40 mg PO DAILY 10/29/24 03/15/25 release celecoxib 200 mg capsule 200 mg PO Q12H 03/15/25 03/15/25 Allergies Allergy/AdvReac Type Severity Reaction Status Date / Time Penicillins Allergy Unknown Verified 10/29/24 20:07 Opioid HPI Opioid Management Most Recent Opioid Data: Last Pain Scale 7 10/29/24 21:02 10/29/24 Review of Systems ROS Status of ROS 10 or more systems reviewed and unremark able except as noted in history and below PFSH PFS Social History Little interest or pleasure in doing things: not at all Feeling down, depressed, or hopeless: not at all Exam Narrative Exam Narrative: Afebrile and nondistressed. Patient is mildly tachycardic. HEENT exam is normal to inspection. There is no pallor or icterus. Neck is supple. Lung sounds are clear to auscultation bilaterally with good air entry. Heart has regular rate and rhythm. S1 and S2 are normal. Abdomen is protuberant, soft nontender. Bowel sounds are hypoactive. There is no organomegaly or CVA tenderness. Lower extremities are warm and dry. He does not have unilateral leg swelling, calf tenderness or pedal edema. There is no facial asymmetry. Speech and mentation are clear and intact. Patient moves all extremities actively. Constitutional Vital Signs, click to edit/add: Last Vital Signs Temp 97.8 F 03/15/25 10:58 Pulse 115 H 03/15/25 10:58 Resp 18 03/15/25 10:58 BP 143/90 H 03/15/25 10:58 Pulse Ox 98 03/15/25 10:58 O2 Del Method Room Air 03/15/25 10:58 Course Vital Signs Vital signs: Vital Signs Temperature 97.8 F 03/15/25 10:58 Pulse Rate 115 H 03/15/25 10:58 Respiratory Rate 18 03/15/25 10:58 Blood Pressure 143/90 H 03/15/25 10:58 Pulse Oximetry 98 03/15/25 10:58 Oxygen Delivery Method Room Air 03/15/25 10:58 Temperature 97.8 F 03/15/25 10:58 Pulse Rate 115 H 03/15/25 10:58 Respiratory Rate 18 03/15/25 10:58 Blood Pressure 143/90 H 03/15/25 10:58 Pulse Oximetry 98 03/15/25 10:58 Oxygen Delivery Method Room Air 03/15/25 10:58 Medical Decision Making [facility] Narrative Medical decision making narrative: Blood work does not suggest dehydration or acute electrolyte disorder. Patient is treated with a liter of IV fluids. He is able to provide a stool specimen which will be sent for lab work. CT scan of the abdomen pelvis did not reveal any thing acute that would require intervention. Patient was discharged with supportive care advised and is to return anytime for worsening symptoms. Differential Diagnosis Differential Diagnosis: Enteritis, colitis, diverticulitis, bowel obstruction. Lab Data Labs: Lab Results 03/15/25 Range/Units 11:53 WBC 8.2 (4.0-11.0) 10^3/uL RBC 4.64 L (4.70-6.10) 10^6/uL Hgb 12.6 L (14.0-18.0) g/dL Hct 39.2 L (42.0-54.0) % MCV 84.5 (80.0-94.0) fL MCH 27.2 (25.9-34.0) pg MCHC 32.1 (29.9-35.2) g/dL RDW 16.0 H (11.0-15.0) % Plt Count 383 (150-450) 10^3/uL MPV 9.8 (9.5-13.5) fL Neut % (Auto) 66.5 (43.0-75.0) % Lymph % (Auto) 22.3 (20.5-60.0) % [place] % (Auto) 7.3 (1.7-12.0) % Eos % (Auto) 3.3 (0.9-7.0) % Baso % (Auto) 0.4 (0.2-2.0) % Neut # (Auto) 5.5 (1.4-6.5) 10^3/uL Lymph # (Auto) 1.8 (1.2-3.8) 10^3/uL [place] # (Auto) 0.6 (0.3-0.8) 10^3/uL Eos # (Auto) 0.3 (0.0-0.7) 10^3/uL Baso # (Auto) 0.0 (0.0-0.1) 10^3/uL Abs Immat Gran (auto) 0.02 (0.00-0.03) 10^3/uL Imm/Tot Granulo (auto) 0.2 (0.0-0.5) % Sodium 138 (136-145) mmol/L Potassium 4.1 (3.5-5.1) mmol/L Chloride 100 (98-107) mmol/L Carbon Dioxide 27.1 (21.0-32.0) mmol/L Anion Gap 15.0 BUN 14.0 (7.0-18.0) mg/dL Creatinine 1.06 (0.70-1.30) mg/dL Est GFR ( Amer) >60 (>=60 mL/min/1.73m^2) Est GFR (Non-Af Amer) >60 (>=60 mL/min/1.73m^2) BUN/Creatinine Ratio 13.2 Glucose 174 H (74-106) mg/dL Calcium 9.2 (8.5-10.1) mg/dL Total Bilirubin 0.6 (0.2-1.0) mg/dL AST 17 (15-37) U/L ALT 24 (16-63) U/L Alkaline Phosphatase 74 (46-116) U/L Total Protein 7.5 (6.4-8.2) g/dL Albumin 3.8 (3.4-5.0) g/dL Globulin 3.7 g/dL Albumin/Globulin Ratio 1.0 Lipase 19.0 (16.0-77.0) U/L Discharge Plan Discharge Chief Complaint: Nausea/Vomiting/Diarrhea Clinical Impression: Enteritis Patient Disposition: Home, Self-Care Time of Disposition Decision: 13:40 Condition: Good Mode of Transportation: Private Vehicle Prescriptions / Home Meds: No Action cyclobenzaprine 10 mg tablet 10 mg PO DAILY levothyroxine 175 mcg tablet 175 mcg PO DAILY atorvastatin 20 mg tablet 20 mg PO DAILY glyburide 5 mg tablet 5 mg PO Q12H omeprazole 40 mg capsule,delayed release(DR/EC) 40 mg PO DAILY methocarbamol 750 mg tablet 750 mg PO DAILY Humulin N NPH U-100 Insulin 100 unit/mL suspension 1 unit SUBCUT .Sliding Scale metoprolol tartrate 50 mg tablet 50 mg PO DAILY Trulicity 1.5 mg/0.5 mL pen injector SUBCUT celecoxib 200 mg capsule 200 mg PO Q12H Print Language: [place] Instructions: Acute Diarrhea (ED) Additional Instructions: Drink extra fluids. Avoid dairy products and sugary foods since these can worsen your diarrhea. You may take 1 or 2 Imodium tablets a couple times a day to slow down the diarrhea. Return for worsening symptoms. Referrals: GISSEL OLIVIER [Primary Care Provider] - 1 week
[2025-03-15] MEDS: 0.9 % SODIUM CHLORIDE 1,000 ML 1000 ML IV (11:57)
[2025-03-15 12:05] LABS: Basophils Percent Auto 0.4 % (0.2-2.0); Eosinophils Absolute Auto 0.3 10^3/uL (0.0-0.7); Eosinophils Percent Auto 3.3 % (0.9-7.0); Hematocrit 39.2 % (42.0-54.0); Hemoglobin 12.6 g/dL (14.0-18.0); Immature Granulocytes Abs Auto 0.02 10^3/uL (0.00-0.03); Immature Granulocytes Pct Auto 0.2 % (0.0-0.5); Lymphocytes Absolute Auto 1.8 10^3/uL (1.2-3.8); Lymphocytes Percent Auto 22.3 % (20.5-60.0); Mean Corpuscular HGB Conc 32.1 g/dL (29.9-35.2); Mean Corpuscular Hemoglobin 27.2 pg (25.9-34.0); Mean Corpuscular Volume 84.5 fL (80.0-94.0); Mean Platelet Volume 9.8 fL (9.5-13.5); Monocytes Absolute Auto 0.6 10^3/uL (0.3-0.8); Monocytes Percent Auto 7.3 % (1.7-12.0); Neutrophils Absolute Auto 5.5 10^3/uL (1.4-6.5); Neutrophils Percent Auto 66.5 % (43.0-75.0); Platelet Count 383 10^3/uL (150-450); Red Blood Count 4.64 10^6/uL (4.70-6.10); White Blood Count 8.2 10^3/uL (4.0-11.0)
[2025-03-15 12:15] LABS: Alanine Aminotransferase 24 U/L (16-63); Albumin Level 3.8 g/dL (3.4-5.0); Alkaline Phosphatase 74 U/L (46-116); Aspartate Amino Transferase 17 U/L (15-37); BUN Creatinine Ratio 13.2; Bilirubin Total 0.6 mg/dL (0.2-1.0); Calcium 9.2 mg/dL (8.5-10.1); Carbon Dioxide 27.1 mmol/L (21.0-32.0); Chloride 100 mmol/L (98-107); Estimated GFR (African America >60 (>=60 mL/min/1.73m^2); Estimated GFR (Non-African Ame >60 (>=60 mL/min/1.73m^2); Globulin 3.7 g/dL; Glucose 174 mg/dL (74-106); Potassium 4.1 mmol/L (3.5-5.1); Sodium 138 mmol/L (136-145); Total Protein 7.5 g/dL (6.4-8.2)
[2025-03-15 13:57] VITALS: BP 170/95; PULSE 100; TEMP 36.9; O2SAT 100
[2025-03-15 14:49] LABS: C. Difficile PCR NEGATIVE
== END 2025-03-15 13:44 | disposition home or self-care (01) ==
PROVIDERS: Emergency Provider Emergency Medicine; PCP Nurse Practitioner
DX: K52.9 Noninfective gastroenteritis and colitis, unspecified (principal)
CPT/HCPCS: 36415; 74176; 80053; 83690; 85025; 87045; 87046; 87427; 87493; 99284